=== PATIENT | male | born 1950 | race Caucasian/White ===

== ENCOUNTER 2020-06-19 17:45 | Inpatient (IN) | payer OTHER, MEDICARE, SELFPAY ==
[2020-06-19] VITALS (17 sets, daily range): BP systolic 126–170; BP diastolic 90–133; PULSE 63–150; RESP 14–24; TEMP 36.6–37.7; O2SAT 95–99; BMI 31.8; BMI 31.6; BMI 31.7
[2020-06-19] MEDS: dilTIAZem 25 MG/5 ML Vial 20 MG IV BOLUS (18:54)
[2020-06-19 18:56] LABS: Absolute Lymphocyte Count 1.49 X10^3/uL (0.83-4.51); Absolute Neutrophil Count 6.2 X10^3/uL (2.0-7.7); Basophil# 0.02 X10^3/uL; Basophil% 0.2 % (0-1); Eosinophil# 0.11 X10^3/uL; Eosinophils% 1.3 % (0-5); Hematocrit 42.8 % (40-54); Hemoglobin 14.3 g/dL (13.0-16.5); Lymphocyte # 1.49 X10^3/ul (4.0); Lymphocyte % 17.5 % (19-41); Mean Corp Hgb Conc 33.4 g/dL (32-36); Mean Corpuscular Hgb 31.4 pg (27.0-32.0); Mean Corpuscular Volume 94.1 fL (80-94); Mean Platelet Vol. 9.7 fl (6.2-12.0); Monocyte# 0.66 X10^3/uL; Monocyte% 7.8 % (0-10); NRBC Flagged by Analyzer 0 % (0-5); Platelet Count 248 K/mm3 (150-450); RBC Distribution Width CV 13.8 % (11.6-14.6); RBC Distribution Width SD 48.2 fl (35.1-43.9); Red Blood Count 4.55 M/mm3 (4.6-6.2); White Blood Count 8.5 K/mm3 (4.4-11.0)
--- NOTE | 2020-06-19 19:07 | RAD_ITS ---
STUDY: X-RAY CHEST REASON FOR EXAM: Male, 69 years old. SOB AND COUGH PRODUCING BLOODY SPUTUM. TECHNIQUE: Single AP portable view of the chest. COMPARISON: October 16, 2015 FINDINGS: There are monitoring devices. There is right lower lung granuloma. There are bilateral mid and lower lung interstitial increased opacities. There is pleural fibrotic scarring of the left costophrenic angle. There is mild cardiac enlargement. Normal mediastinum and isabel. Normal visualized pulmonary arteries. Normal visualized aortic arch and descending thoracic aorta. There are diffuse degenerative changes of the visualized thoracic spine. Normal visualized ribs, clavicles, and shoulders. There is no demonstrated abnormality of the visualized soft tissue structures of the upper abdomen. RAD/Chest 1 View (Portable) IMPRESSION: Interstitial pneumonia or edema. Electronically Signed: Benito Gonsales MD at 19:40 EDT , Service support ,
[2020-06-19 19:13] LABS: BNP,B-Type NATRIURETIC PEPTIDE 264.5 pg/mL (0-100)
[2020-06-19 19:14] LABS: ALB/GLOB Ratio 0.9 RATIO (0.9-2.4); AST(SGOT) 34 U/L (15-37); Alanine Aminotransfer ALT/SGPT 73 U/L (16-61); Albumin, Serum 3.1 g/dL (3.2-5.0); Alkaline Phosphatase 57 U/L (45-117); Anion Gap 5 (5-15); BUN 14 mg/dL (7-18); BUN/Creat Ratio 12.2 RATIO (10-20); Calcium,Total 8.4 mg/dL (8.5-10.1); Chloride 110 mmol/L (98-107); Creatinine, Serum 1.15 mg/dL (0.70-1.30); EST Glomerular Filtration Rate 67 mL/min (>60); Est Glom Filt Rate - Afr Amer 80 mL/min (>60); Estimated Creatinine Clearance 62.75 ml/min; Globulin 3.4 g/dL (2.2-4.2); Glucose 102 mg/dL (74-106); Potassium 3.6 mmol/L (3.5-5.1); Protein, Total 6.5 g/dL (6.4-8.2); Sodium Level 143 mmol/L (136-145)
--- NOTE | 2020-06-19 19:54 | EKG12_ITS ---
Test Reason : SOB Blood Pressure : / mmHG Vent. Rate : 164 BPM Atrial Rate : 468 BPM P-R Int : 000 ms QRS Dur : 092 ms QT Int : 282 ms P-R-T Axes : 000 042 089 degrees QTc Int : 465 ms Atrial fibrillation with rapid ventricular response with premature ventricular or aberrantly conducte d complexes Nonspecific ST and T wave abnormality Abnormal ECG Confirmed by HERB DOWNS, URIAH ([id number]), senior technical editor JESSICA OAKLEY ([id number]) on 06/20/2020 9:23:54 AM Referred By: Jeffrey Emanuel Confirmed By:URIAH ESTEVEZ MD
[2020-06-19 20:06] LABS: Probe Check PASS; Specimen Processing Control PASS
--- NOTE | 2020-06-19 20:15 | ED.VIS.GEN ---
History of Present Illness Chief Complaint: Cough Informant: Patient Narrative: Patient presents with shortness of breath for 1 week. He noticed some hemoptysis today he denies any palpitations, as I walked into the room he is in A. fib with a heart rate in the 160s but is denying any palpitations. He denies chest pain. Apparently he is a [employer] and has been able to do most of his duties over the past week. He denies any fever or chills Past Medical History - Allergies and Home Meds Allergies/Adverse Reactions: Allergies Sulfa (Sulfonamide Antibiotics) Allergy (Verified 06/19/20 17:46) Hives Primary Care Physician: Care Physician,No Primary [Primary Care Provider] - Past Medical History: None Smoking Status: Never smoker - Family History Paternal Family History: Reports: No pertinent history, - - No history of lung cancer Review of Systems General: Denies: Chills, Fever Eyes: Denies: Visual changes - bilaterally Cardiovascular: Denies: Chest pain, Palpitations Respiratory: Reports: Dyspnea, Cough, Sputum Gastrointestinal: Denies: Abdominal pain, Nausea Genitourinary: Denies: Dysuria Musculoskeletal: Denies: Myalgias Skin: Denies: Rash Neurological: Reports: Weakness. Denies: Headache Psych: Denies: Depression Hematologic: Denies: Easy bruising Allergy: Denies: Uticaria Physical Exam Vital Signs/Narrative: Vital Signs Temp Pulse Resp BP Pulse Ox 06/19/20 20:00 98 F 113 H 21 H 138/107 H 97 06/19/20 19:28 127 H 160/113 H 06/19/20 19:00 99.9 F H 150 H 20 H 139/127 H 97 06/19/20 18:25 99.4 F H 79 15 163/112 H 99 06/19/20 17:47 99.4 F H 79 15 163/112 H 99 General: - - He does not appear in significant distress. Head: Normocephalic ENT: Moist mucous membranes, No rhinorrhea Neck: Supple, Nontender Cardiovascular: Irregular, Tachycardia Respiratory: - - He is not tachypneic he is speaking in full sentences. Mostly clear bilateral breath sounds Abdomen: Soft Back: Nontender Extremities: Nontender. Negative for: No edema Skin: Normal color Neurological: Alert Psychological: Normal affect Diagnostic/Tx/Re-eval Chest X-Ray - ED: 1 View, Read by ED Physician, Read by Radiologist, - - Patient has bilateral fluffy infiltrates. - Rhythm Strip Rhythm Strip: A-fib Rate: 160 Ectopy: None - EKG Initial EKG Interpretation: - - A. fib with a rate of 164. Nonspecific ST and T wave abnormality. Normal QTc interval. Interpreted by emergency doctor - Medical Decision Making Has A. fib with RVR he is given Cardizem, he improved slightly therefore I will rebolus and started drip. He is also found to have bilateral pneumonia with a low-grade fever, there is no leukocytosis or any signs of sepsis, IV tachycardia secondary to A. fib. Antibiotics were given. COVID testing was negative. Because of the hemoptysis I will send him for CT angiogram. Otherwise patient will be admitted. ED Disposition - Plan for ED Patient: Disposition: Acute Care Hospital [facility] Diagnosis: Atrial fibrillation with RVR, Pneumonia Referrals: Care Physician,No Primary [Primary Care Provider] -
--- NOTE | 2020-06-19 20:33 | CT_ITS ---
We are attempting to reach an attending provider to discuss findings. An addendum with communication details will be sent when the communication is complete. STUDY: CTA CHEST REASON FOR EXAM: Male, 69 years old. SOB/COUGH/BLOODY SPUTUM. Hx of afib and pneumonia RADIATION DOSAGE (If Supplied By Facility): CTDIvol = ( 14.74 ) mGy, DLP = ( 568.64 ) mGycm TECHNIQUE: The examination was performed with the intravenous administration of Isovue 370 100ml. Post-processing of the angiographic images was performed, with multiplanar reformation and 3D reconstruction. Individualized dose optimization techniques were used for this CT. COMPARISON: Chest x-ray. FINDINGS: There are filling defects of the bilateral pulmonary arteries consistent with pulmonary embolism. Normal thoracic aorta and visualized great vessels. There is no demonstrated aortic dissection. There is cardiomegaly. Normal mediastinum. There are calcified bilateral hilar lymph nodes. Normal visualized trachea and bronchi. The lungs are well expanded. There are granulomatous calcifications. There are interstitial septal and groundglass increased opacities of the lungs. There are small bilateral pleural effusions. Normal chest wall structures. There are degenerative changes of thoracic spine. There is a solitary gallstone. CT/CTA Chest W/WO Contrast IMPRESSION: Abnormal CTA chest examination, with bilateral pulmonary embolism. Bilateral pneumonia or edema and pleural effusions. Electronically Signed: Benito Gonsales MD at 21:29 EDT , Service support ,
--- NOTE | 2020-06-19 20:57 | HP.PCM_ITS ---
Problem List (1) Atrial fibrillation with RVR Status: Acute (2) Pneumonia Status: Acute (3) History of esophageal dilatation Status: Chronic (4) Bilateral pleural effusion Status: Acute History of Present Illness Date of Admission: 06/19/20 Chief Complaint: SOB The patient is a 69 year old M te[place] with a significant history of GERD and esophageal dilatation who presents to the emergency department with 1 week history of shortness of breath. His shortness of breath got worse but after he did some deep breathing exercise his shortness of breath improved. He reports a productive cough of yellow sputum. However he noticed 2 episodes where his sputum looked orange and he thought that there might be blood in it. He denies any fever or chills. He reports poor appetite. He is fatigue but he think that it is not unusual. He denies any changes in smell or taste. He has been compliant with nose mask. Chest x-ray showed bilateral opacities. At the ED patient was found to be in A. fib with RVR. Past Medical History Past Medical History (Chronic Problems): Chronic Problems History of esophageal dilatation (Chronic) Allergies Sulfa (Sulfonamide Antibiotics) Allergy (Verified 06/19/20 17:46) Hives Home Medications: Ambulatory Orders Medication Instructions Recorded Omeprazole [Prilosec] 20 mg PO DAILY 09/19/15 Zinc Sulfate (50mg elemental) 220 mg PO DAILY 06/19/20 [Zinc Sulfate] Surgical History: tonsillectomy Smoking Status: Never smoker - *Family History Paternal History Items: Heart Disease, - Maternal History Items: Cancer - Breast Review of Systems Constitutional: Reports: Anorexia, Fatigue - Chronic. Denies: Chills, Fever, Weight Change HEENT: Denies: Head Aches, Sinus Congestion, Sinus Drainage Cardiovascular: Denies: Chest Pain, Palpitations Respiratory: Reports: Cough, Hemoptysis, Shortness of Breath, Sputum production Gastrointestinal: Denies: Abdominal Pain, Nausea, Vomiting Genitourinary: Denies: Dysuria Musculoskeletal: Denies: Joint Pain, Joint Tenderness Skin: Denies: Rash, Wounds Neurological: Denies: Numbness, Tingling, Focal weakness Psychiatric: Denies: Anxiety, Depression, Homicidal Ideations, Suicidal Ideations Hematologic/ Lymphatic: Denies: Easy Bruising, Easy Bleeding VTE Information - Inpt Only VTE Present on Admission: Yes - Bilateral PE. VTE Mechan Device Prophylaxis: None VTE Pharm Prophylaxis ordered?: No Patient Problems: Active and Suspected Problems Atrial fibrillation with RVR (Acute) Pneumonia (Acute) Bilateral pleural effusion (Acute) - Physical Exam Vitals/I&O's: Vital Signs Temp Pulse Resp BP Pulse Ox 98 F 113 H 21 H 138/107 H 97 06/19/20 20:00 06/19/20 20:00 06/19/20 20:00 06/19/20 20:00 06/19/20 20:00 Oxygen Delivery Method Room Air Weight: 103.6 kg Body Mass Index (BMI) 31.8 General: Alert, Oriented x3, Cooperative HEENT: Atraumatic, PERRLA, EOMI, Normocephalic Neck: Supple, No JVD, Negative Carotid Bruits Lungs: Clear to auscultation, Normal air movement Cardiovascular: Normal S1, Normal S2, No murmurs, Irregular Rate, Tachycardic Abdomen: Bowel Sounds Present, Soft, Non Tender Extremities: No edema, Capillary Refill Less than 3 Seconds Skin: No rashes, No breakdown Musculoskeletal: No Tenderness to Palpation of Joints or Extremities Neurological: Cranial nerves II-XII grossly intact Psych/Mental Status: Normal Affect, Appropriate Laboratory Results 06/19/20 18:40: WBC 8.5, RBC 4.55 L, Hgb 14.3, Hct 42.8, MCV 94.1 H, MCH 31.4, MCHC 33.4, RDW Std Deviation 48.2 H, RDW Coeff of Iesha 13.8, Plt Count 248, MPV 9.7, Immature Gran % (Auto) 0.200, Neut % (Auto) 73.0 H, Lymph % (Auto) 17.5 L, [place] % (Auto) 7.8, Eos % (Auto) 1.3, Baso % (Auto) 0.2, Absolute Neuts (auto) 6.2, Absolute Lymphs (auto) 1.49, Nucleated RBC % 0 06/19/20 18:40: Sodium 143, Potassium 3.6, Chloride 110 H, Carbon Dioxide 28.0, Anion Gap 5, BUN 14, Creatinine 1.15, Estim Creat Clear Calc 62.75, Est GFR (MDRD) Af Amer 80, Est GFR (MDRD) Non-Af 67, BUN/Creatinine Ratio 12.2, Glucose 102, Calcium 8.4 L, Total Bilirubin 1.20 H, AST 34, ALT 73 H, Alkaline Phosphatase 57, Troponin I < 0.015, Total Protein 6.5, Albumin 3.1 L, Globulin 3.4, Albumin/Globulin Ratio 0.9 06/19/20 18:40: B-Natriuretic Peptide 264.5 H 06/19/20 18:48: COVID-19 (LISSA) Negative Current Medications Azithromycin 500 mg/ Dextrose 255 mls @ 250 mls/hr IV X1 ONE Stop: 06/19/20 21:14 Diltiazem HCl 125 mg/ Dextrose 125 mls @ 5 mls/hr IV .Q25H CRYSTAL; Protocol Non-Formulary Medication (Omeprazole) 20 mg PO DAILY CRYSTAL Zinc Sulfate (Zinc Sulfate) 220 mg PO DAILY CRYSTAL Assessment/Plan All Active Problems Atrial fibrillation with RVR (Acute) Pneumonia (Acute) Bilateral pleural effusion (Acute) The patient is a 69 year old M [place] with a significant history of GERD and esophageal dilatation presents emergency department with shortness of breath; hemoptysis was found to have A. fib with RVR and CT scan findings of bilateral pleural effusion with right worse than left. Pneumonia Actual chest x-ray imaging was reviewed. It showed bilateral interstitial opacities. Cannot rule out interstitial pneumonitis. Blood culture ?2 is ordered Respiratory Gram stain and culture ordered Covid screen at the emergency department was negative. Antibiotics: Received ceftriaxone and azithromycin at emergency department and continued. PRN pro-air inhalation ordered. Legionella antigen screen and Strep antigen ordered We will consult infectious disease; and pulmonary medicine for probable covid. Procalcitonin level; ferritin and triglyceride ordered Tessalon Perles PRN.. Trend CMP. Noted to have elevated ALT. A. fib with RVR Placed on telemetry Received Cardizem bolus at emergency department. Discussed with cardiology Dr. Perkins who recommended additional Cardizem bolus; and to be started on Cardizem drip at 10 mg/h. Discussed with emergency department doctor and recommendations followed. Obtain echo Potassium is 3.6. 40 mEq of potassium chloride ordered. Check magnesium. Check TSH. Cardiology consult. Pulmonary embolism CTPA with bilateral pulmonary PE. Discussed with gps field data collector, Dr. [place]. Will start heparin drip without bolus Echo ordered DVT prophylaxis Not indicated since patient is on heparin drip for acute PE. Inpatient E&M: 98097 Init Hosp L3
[2020-06-19] MEDS: dilTIAZem 25 MG/5 ML Vial IV BOLUS (21:00)
[2020-06-19] MEDS: Ceftriaxone 1 GM/50 ML BAG IV (21:00)
--- NOTE | 2020-06-19 21:37 | ECHOCS_ITS ---
Reason For Study: AFib/Flutter Procedure This was a 2D Doppler, Color Flow transthoracic echocardiogram. Contrast injection was performed. Exam performed portable in patient room. Left Ventricle Normal LV size. The estimated ejection fraction is 45 %. Unable to assess diastolic dysfunction due to arrhythmia. There is mild global hypokinesis of the left ventricle. Right Ventricle Normal RV size. Normal systolic function. Atria Normal left atrium. Normal right atrium. Mitral Valve Normal mitral valve. Mild (1+) eccentric mitral valve insufficiency. Tricuspid Valve Normal tricuspid valve. Mild (1+) tricuspid valve insufficiency. Aortic Valve Trisinus/trileaflet aortic valve. Mild focal aortic valve calcification. Pulmonic Valve Normal pulmonic valve. Great Vessels Normal aortic root. The pulmonary artery is normal size. Normal inferior vena cava. Pericardium/Pleural No pericardial effusion. Medication Diluted definity 2ml given slow IV push to enhance endocardial definition. MMode/2D Measurements & Calculations LVIDd: 4.8 cm IVSd: 1.7 cm Ao root diam: 3.6 cm LVIDs: 3.9 cm LVPWd: 1.5 cm LA dimension: 4.0 cm RVDd: 4.4 cm FS: 19.6 % LAV(MOD-bp): 117.4 ml LA A4 area: 29.8 cm2 RA A4 area: 26.5 cm2 LAV(MOD-bp) Indexed: 52.8 ml/m2 LAV(MOD-sp2): 124.1 ml LAV(MOD-sp4): 100.3 ml Doppler Measurements & Calculations MV E max bobby: 130.5 cm/sec Ao V2 max: 112.8 cm/sec LV V1 max: 97.5 cm/sec Ao max P.1 mmHg LV V1 max P.8 mmHg MR max bobby: 484.0 cm/sec PA V2 max: 58.9 cm/sec TR max bobby: 284.9 cm/sec MR max P.7 mmHg TR max P.5 mmHg MR mean bobby: 378.6 cm/sec MR mean P.3 mmHg MR VTI: 143.3 cm Interpretation Summary Normal LV size. The estimated ejection fraction is 45 %. Unable to assess diastolic dysfunction due to arrhythmia. Mild (1+) tricuspid valve insufficiency. Ordering Physician: Jeffrey Emanuel Referring Physician: Jeffrey Emanuel Performed By: Mason Sherman RCS
--- NOTE | 2020-06-19 21:54 | NURSING ---
States PNA shots were in 2017 and 2018.
[2020-06-19 22:03] LABS: Ferritin 345 ng/mL (26-388); Triglycerides 98 mg/dL
[2020-06-19 22:12] LABS: Magnesium 2.2 mg/dL (1.6-2.6)
--- NOTE | 2020-06-19 22:17 | NURSING ---
Dr Perkins was called while patient was in the ED, so he was notified by Dr. Emanuel.
[2020-06-19 22:33] LABS: Procalcitonin 0.06 ng/mL (0.00-0.09)
[2020-06-19 22:34] LABS: International Normalized Ratio 1.2; Partial Thromboplast Time 26.7 Seconds (24.1-36.2); Prothrombin Time (Protime)PT. 14.5 SECONDS (11.7-14.9)
[2020-06-20] VITALS (25 sets, daily range): BP systolic 113–166; BP diastolic 73–98; PULSE 68–155; RESP 16–23; TEMP 36.6–37.2; O2SAT 91–97
--- NOTE | 2020-06-20 00:05 | NURSING ---
Med titration VS (BP of 152/110 and HR of 63) that are documented under Cardizem med titration should be timed at 21:37 rather than 21:47. Unable to edit documentation.
--- NOTE | 2020-06-20 00:38 | NURSING ---
Heparin gtt ordered to start at 1500 units/hour per weight based protocol. However, pt re-weighed when transferred to cohort unit. Weight was 102.6 kg. Pt started on Heparin gtt @ 1400 units/hr per weight-based protocol.
[2020-06-20 05:23] LABS: Absolute Lymphocyte Count 1.61 X10^3/uL (0.83-4.51); Absolute Neutrophil Count 5.4 X10^3/uL (2.0-7.7); Basophil# 0.03 X10^3/uL; Basophil% 0.4 % (0-1); Eosinophil# 0.12 X10^3/uL; Eosinophils% 1.5 % (0-5); Hematocrit 41.2 % (40-54); Hemoglobin 13.7 g/dL (13.0-16.5); Lymphocyte # 1.61 X10^3/ul (4.0); Lymphocyte % 20.3 % (19-41); Mean Corp Hgb Conc 33.3 g/dL (32-36); Mean Corpuscular Hgb 31.5 pg (27.0-32.0); Mean Corpuscular Volume 94.7 fL (80-94); Mean Platelet Vol. 9.1 fl (6.2-12.0); Monocyte# 0.73 X10^3/uL; Monocyte% 9.2 % (0-10); NRBC Flagged by Analyzer 0 % (0-5); Neutrophil # 5.43 X10^3/uL (2.7-7.7); Neutrophil % 68.3 % (47-70); Platelet Count 237 K/mm3 (150-450); RBC Distribution Width CV 13.9 % (11.6-14.6); RBC Distribution Width SD 48.1 fl (35.1-43.9); Red Blood Count 4.35 M/mm3 (4.6-6.2); White Blood Count 7.9 K/mm3 (4.4-11.0)
[2020-06-20 05:36] LABS: Partial Thromboplast Time 61.9 Seconds (24.1-36.2)
[2020-06-20 05:45] LABS: ALB/GLOB Ratio 0.9 RATIO (0.9-2.4); AST(SGOT) 23 U/L (15-37); Alanine Aminotransfer ALT/SGPT 63 U/L (16-61); Albumin, Serum 2.9 g/dL (3.2-5.0); Alkaline Phosphatase 51 U/L (45-117); Anion Gap 4 (5-15); BUN 11 mg/dL (7-18); BUN/Creat Ratio 11.4 RATIO (10-20); Calcium,Total 7.8 mg/dL (8.5-10.1); Chloride 108 mmol/L (98-107); Creatinine, Serum 0.97 mg/dL (0.70-1.30); EST Glomerular Filtration Rate 81 mL/min (>60); Est Glom Filt Rate - Afr Amer 98 mL/min (>60); Estimated Creatinine Clearance 74.39 ml/min; Globulin 3.4 g/dL (2.2-4.2); Glucose 112 mg/dL (74-106); Potassium 4.1 mmol/L (3.5-5.1); Protein, Total 6.3 g/dL (6.4-8.2); Sodium Level 140 mmol/L (136-145); Thyroid Stim Hormone (TSH) 1.52 uIU/mL (0.358-3.74)
--- NOTE | 2020-06-20 06:17 | PCM.CONS.PUL ---
Reason for Consult Date of Consultation: 06/20/20 Reason for Consultation: Shortness of breath History of Present Illness: The patient is a 69-year-old male, with a history as outlined below, who presented to the emergency department on June 19 with complaints of a one-week period of exertional shortness of breath. The patient is a lifelong non-smoker. 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 He denies any known pulmonary or cardiac issues. He does report a great deal of seasonal allergies and has had an intermittent nonproductive cough, which has been mild in nature. He denies any sick contact exposure. He denies fevers, chills or night sweats. He denies any loss of taste or smell. The patient denied a history of venous thromboembolic disease. He has no known personal or family history of any hypercoagulable conditions. He denies any recent immobility or surgeries. He has not traveled anywhere recently. On presentation to the emergency department, the patient was noted to be afebrile and hemodynamically stable. Shortly after his arrival, the patient was noted to be in atrial fibrillation with a rapid ventricular rate. Laboratory evaluation revealed a normal white blood cell count. Coagulation profile was within normal limits. Chemistry profile was unremarkable. BNP was mildly elevated at 264. Troponin was negative. Procalcitonin was within normal limits. TSH was within normal limits. Coronavirus PCR was negative. CTA chest revealed bilateral pulmonary emboli along with interstitial septal thickening and groundglass changes. Small bilateral pleural effusions were also noted. The patient was subsequently started on Cardizem and IV heparin drip. He was then admitted to the medical intensive care unit for further management. Past Medical History Past Medical History (Chronic Problems): Chronic Problems History of esophageal dilatation (Chronic) Allergies ragweed pollen Allergy (Verified 06/19/20 21:53) NEEDS FOLLOW-UP Sulfa (Sulfonamide Antibiotics) Allergy (Verified 06/19/20 17:46) Hives Home Medications: Ambulatory Orders Medication Instructions Recorded Omeprazole [Prilosec] 20 mg PO DAILY 09/19/15 Zinc Sulfate (50mg elemental) 220 mg PO DAILY 06/19/20 [Zinc Sulfate] Apixaban [Eliquis] 5 mg PO BID 30 Days #60 tab.ds.pk 06/20/20 Apixaban [Eliquis] 10 mg PO BID 6 Days #12 tab 06/20/20 Surgical History: tonsillectomy Smoking Status: Never smoker - *Family History Maternal History Items: Cancer - Breast Paternal History Items: Heart Disease, - Review of Systems Constitutional: Denies: Chills, Fever, Night Sweats, Fatigue Eyes: Denies: Blurred vision, Double vision HEENT: Denies: Head Aches, Sinus Congestion, Sinus Drainage Cardiovascular: Reports: Chest Tightness Respiratory: Reports: Cough, Shortness of Breath. Denies: Sputum production Gastrointestinal: Denies: Abdominal Pain, Nausea, Vomiting Genitourinary: Denies: Dysuria Musculoskeletal: Denies: Joint Pain, Joint Tenderness Skin: Denies: Rash, Wounds Neurological: Denies: Numbness, Tingling, Focal weakness Psychiatric: Denies: Anxiety, Depression, Homicidal Ideations, Suicidal Ideations Hematologic/ Lymphatic: Denies: Easy Bruising, Easy Bleeding, Hx of blood clot Patient Problems: Active and Suspected Problems Atrial fibrillation with RVR (Acute) Pneumonia (Acute) Bilateral pleural effusion (Acute) Objective: The patient's most recent lab work, culture data and imaging studies have all been personally reviewed. Respiratory viral panel was negative. Blood and sputum cultures are pending. - Physical Exam Vitals/I&O's: Vital Signs Temp Pulse Resp BP Pulse Ox 98.1 F 77 19 H 129/73 H 96 06/19/20 23:18 06/20/20 05:00 06/20/20 05:00 06/20/20 05:00 06/20/20 05:00 Oxygen Delivery Method Room Air Weight: 226 lb 3.108 oz Body Mass Index (BMI) 31.6 Intake and Output for Last 24 Hours 06/18/20 06/19/20 06/20/20 23:59 23:59 23:59 Intake Total 871.75 / 879.25 201.32 / 201.32 Balance 871.75 / 879.25 201.32 / 201.32 General: Alert, Cooperative, No apparent distress, - - Sitting in bedside recliner. HEENT: Atraumatic, PERRLA, Normocephalic Oral: No Gingival or Mucosal Lesions/ Ulcerations Neck: Supple, No Nodes, Trachea Midline Lungs: Normal air movement, No rhonchi, No wheeze, No rales Cardiovascular: Normal S1, Normal S2, Irregular Rate, Tachycardic Abdomen: Bowel Sounds Present, Soft, Non Tender Extremities: No clubbing, No cyanosis Skin: No rashes Musculoskeletal: No Muscle Wasting Lymphatic: No Cervical, Supraclavicular, or Inguinal Adenopathy Neurological: Cranial nerves II-XII grossly intact, Neuro grossly intact Psych/Mental Status: Alert and oriented to time, place, person, mood and affect Labs (Last 48 Hours) 06/19/20 06/19/20 06/19/20 18:40 18:40 18:40 WBC 8.5 RBC 4.55 L Hgb 14.3 Hct 42.8 MCV 94.1 H MCH 31.4 MCHC 33.4 RDW Std Deviation 48.2 H RDW Coeff of Iesha 13.8 Plt Count 248 MPV 9.7 Immature Gran % (Auto) 0.200 Neut % (Auto) 73.0 H Lymph % (Auto) 17.5 L Bureau % (Auto) 7.8 Eos % (Auto) 1.3 Baso % (Auto) 0.2 Absolute Neuts (auto) 6.2 Absolute Lymphs (auto) 1.49 Nucleated RBC % 0 PT INR APTT Sodium 143 Potassium 3.6 Chloride 110 H Carbon Dioxide 28.0 Anion Gap 5 BUN 14 Creatinine 1.15 Estim Creat Clear Calc 62.75 Est GFR (MDRD) Af Amer 80 Est GFR (MDRD) Non-Af 67 BUN/Creatinine Ratio 12.2 Glucose 102 Calcium 8.4 L Magnesium Ferritin Total Bilirubin 1.20 H AST 34 ALT 73 H Alkaline Phosphatase 57 Troponin I < 0.015 B-Natriuretic Peptide 264.5 H Total Protein 6.5 Albumin 3.1 L Globulin 3.4 Albumin/Globulin Ratio 0.9 Triglycerides Procalcitonin TSH COVID-19 ([facility]) 06/19/20 06/19/20 06/19/20 18:40 18:40 18:40 WBC RBC Hgb Hct MCV MCH MCHC RDW Std Deviation RDW Coeff of Iesha Plt Count MPV Immature Gran % (Auto) Neut % (Auto) Lymph % (Auto) Bureau % (Auto) Eos % (Auto) Baso % (Auto) Absolute Neuts (auto) Absolute Lymphs (auto) Nucleated RBC % PT INR APTT Sodium Potassium Chloride Carbon Dioxide Anion Gap BUN Creatinine Estim Creat Clear Calc Est GFR (MDRD) Af Amer Est GFR (MDRD) Non-Af BUN/Creatinine Ratio Glucose Calcium Magnesium 2.2 Ferritin 345 Total Bilirubin AST ALT Alkaline Phosphatase Troponin I B-Natriuretic Peptide Cancelled Total Protein Albumin Globulin Albumin/Globulin Ratio Triglycerides 98 Procalcitonin TSH COVID-19 ([facility]) 06/19/20 06/19/20 06/19/20 18:40 18:48 22:00 WBC RBC Hgb Hct MCV MCH MCHC RDW Std Deviation RDW Coeff of Iesha Plt Count MPV Immature Gran % (Auto) Neut % (Auto) Lymph % (Auto) Bureau % (Auto) Eos % (Auto) Baso % (Auto) Absolute Neuts (auto) Absolute Lymphs (auto) Nucleated RBC % PT 14.5 INR 1.2 APTT 26.7 Sodium Potassium Chloride Carbon Dioxide Anion Gap BUN Creatinine Estim Creat Clear Calc Est GFR (MDRD) Af Amer Est GFR (MDRD) Non-Af BUN/Creatinine Ratio Glucose Calcium Magnesium Ferritin Total Bilirubin AST ALT Alkaline Phosphatase Troponin I B-Natriuretic Peptide Total Protein Albumin Globulin Albumin/Globulin Ratio Triglycerides Procalcitonin 0.06 TSH COVID-19 ([facility]) Negative 06/20/20 06/20/20 06/20/20 05:10 05:10 05:10 WBC 7.9 RBC 4.35 L Hgb 13.7 Hct 41.2 MCV 94.7 H MCH 31.5 MCHC 33.3 RDW Std Deviation 48.1 H RDW Coeff of Iesha 13.9 Plt Count 237 MPV 9.1 Immature Gran % (Auto) 0.300 Neut % (Auto) 68.3 Lymph % (Auto) 20.3 Bureau % (Auto) 9.2 Eos % (Auto) 1.5 Baso % (Auto) 0.4 Absolute Neuts (auto) 5.4 Absolute Lymphs (auto) 1.61 Nucleated RBC % 0 PT INR APTT 61.9 H Sodium 140 Potassium 4.1 Chloride 108 H Carbon Dioxide 28.0 Anion Gap 4 L BUN 11 Creatinine 0.97 Estim Creat Clear Calc 74.39 Est GFR (MDRD) Af Amer 98 Est GFR (MDRD) Non-Af 81 BUN/Creatinine Ratio 11.4 Glucose 112 H Calcium 7.8 L Magnesium Ferritin Total Bilirubin 1.30 H AST 23 ALT 63 H Alkaline Phosphatase 51 Troponin I B-Natriuretic Peptide Total Protein 6.3 L Albumin 2.9 L Globulin 3.4 Albumin/Globulin Ratio 0.9 Triglycerides Procalcitonin TSH 1.52 COVID-19 ([facility]) Microbiology 06/19/20 23:00 Mucosa - Nasopharyngeal Respiratory Panel (PCR) - Final Clinical Impression(s) from Imaging Studies Chest X-Ray 06/19/20 19:07 IMPRESSION: Interstitial pneumonia or edema. Electronically Signed: Benito Gonsales MD at 19:40 EDT , Service support , Chest CTA 06/19/20 20:33 IMPRESSION: Abnormal CTA chest examination, with bilateral pulmonary embolism. Bilateral pneumonia or edema and pleural effusions. Electronically Signed: Benito Gonsales MD at 21:29 EDT , Service support , ADDENDUM: 06/19/20 2138 IMPRESSION: Abnormal CTA chest examination, with bilateral pulmonary embolism. Bilateral pneumonia or edema and pleural effusions. N.B. : The above information has been verbally conveyed by Benito Gonsales MD to Amisha Francis RN, on 06/19/2020 21:31:10 (ET). Electronically Signed: Benito Gonsales MD at 21:29 EDT , Service support , Current Medications Acetaminophen (Tylenol) 650 mg PO Q6H PRN PRN PRN Reason: Pain Score 1-10/Temp > 100.7 F Albuterol Sulfate (Ventolin Aerosols) 2.5 mg INHALATION Q4H PRN PRN PRN Reason: SOB/WEEZING Benzonatate (Tessalon Perle) 100 mg PO TID PRN PRN PRN Reason: COUGH Heparin Sodium (Porcine) (Heparin Na) 0 unit IV UD PRN; Protocol PRN Reason: DOSAGE ADJUSTMENT NOMOGRAM Diltiazem HCl 125 mg/ Dextrose 125 mls @ 10 mls/hr IV .[id number] [facility]; Protocol Last Admin: 06/19/20 22:43 Dose: Not Given Documented by: Azithromycin 500 mg/ Dextrose 255 mls @ 250 mls/hr IV Q24H [facility] Ceftriaxone Sodium (Rocephin) 1 gm in 50 mls @ 100 mls/hr IV Q24H [facility] Diltiazem HCl 125 mg/ Dextrose 125 mls @ 10 mls/hr IV .[id number] [facility]; Protocol Last Admin: 06/20/20 05:50 Dose: 15 mg/hr, 15 mls/hr Documented by: Sodium Chloride () 250 mls @ 15 mls/hr IV .[id number] PRN PRN Reason: Saline Flush Sodium Chloride () 250 mls @ 15 mls/hr IV .[id number] PRN PRN Reason: Additional IVPB Infusion Heparin Sodium/Sodium Chloride () 25,000 unit in 250 mls @ 15 mls/hr IV .[id number] [facility]; Protocol Last Titration: 06/20/20 05:38 Dose: 1,400 units/hr, 14 mls/hr Documented by: Nutritional Formula (Lactose Free) (Ensure Enlive) 120 ml PO 4X/DAY [facility] Ondansetron HCl (Zofran) 4 mg IV Q8H PRN PRN PRN Reason: NAUSEA/VOMITING Pantoprazole Sodium (Protonix) 20 mg PO DAILY [facility] Sodium Chloride () 10 - 40 ml IV UD PRN PRN Reason: SALINE FLUSH Zinc Sulfate (Zinc Sulfate) 220 mg PO DAILY [facility] Assessment/Plan All Active Problems Atrial fibrillation with RVR (Acute) Pneumonia (Acute) Bilateral pleural effusion (Acute) RECOMMENDATIONS: 1. Continue systemic anticoagulation with continuous heparin infusion for now. 2. Await echocardiogram results. 3. Continue Cardizem, while awaiting cardiology consultation. 4. Okay to discontinue antibiotics from my perspective. 5. Discontinue isolation precautions. 6. The patient can eventually be transitioned to Eliquis or Xarelto prior to discharge. IMPRESSIONS: 1. Shortness of breath Appears to be secondary to bilateral pulmonary emboli with subsequent new onset atrial fibrillation with rapid ventricular rate. I have a low clinical index of suspicion for underlying pulmonary infectious process. Antibiotics can be discontinued from my perspective. Coronavirus PCR was negative. The patient does not endorse any symptoms overtly concerning for COVID pneumonia. Accordingly, isolation precautions can be discontinued. Agree with continuing systemic anticoagulation for now with heparin. Cardiology consultation is currently pending. For now, Cardizem will be continued. An echocardiogram has also been ordered and is currently pending. Eventually, the patient can be transitioned to either Eliquis or Xarelto, with plans to continue systemic anticoagulation without interruption upon discharge, given the unprovoked PEs noted on CT. 2. New onset atrial fibrillation with rapid ventricular rate Potentially precipitated by bilateral pulmonary emboli noted on CTA chest. Continue current medical management per cardiology recommendations. Echocardiogram is currently pending. 3. History of GERD Continue home Prilosec. This note was generated with [employer] dictation software. It may contain incorrect words, spelling, and punctuation that were not noted in checking the note before signing. Inpatient E&M: 34339 Init Hosp L3
--- NOTE | 2020-06-20 07:14 | PCM.PN.HOSP ---
Patient Problems: Active and Suspected Problems Atrial fibrillation with RVR (Acute) Pneumonia (Acute) Bilateral pleural effusion (Acute) Reason for Visit: Follow-up on A. lawrence with RVR/Bilateral PE Subjective: Patient seen and examined. He denied any palpitations or chest pain or dizziness. His heart rate remained uncontrolled at time of exam. Was on Cardizem drip. No orthopnea or PND. Objective: Physical exam: General: Alert, Oriented x3, Cooperative HEENT: Atraumatic, PERRLA, EOMI, Normocephalic Neck: Supple, No JVD, Negative Carotid Bruits Lungs: Clear to auscultation, Normal air movement Cardiovascular: Normal S1, Normal S2, No murmurs, Irregular Rate, Tachycardic Abdomen: Bowel Sounds Present, Soft, Non Tender Extremities: No edema, Capillary Refill Less than 3 Seconds Skin: No rashes, No breakdown Musculoskeletal: No Tenderness to Palpation of Joints or Extremities Neurological: Cranial nerves II-XII grossly intact Psych/Mental Status: Normal Affect, Appropriate Vitals/I&O's: Vital Signs Temp Pulse Resp BP Pulse Ox 97.9 F 88 19 H 136/79 H 96 06/20/20 06:00 06/20/20 07:00 06/20/20 07:00 06/20/20 07:00 06/20/20 07:00 Oxygen Delivery Method Room Air Weight: 102.6 kg Body Mass Index (BMI) 31.6 Intake and Output for Last 24 Hours 06/18/20 06/19/20 06/20/20 23:59 23:59 23:59 Intake Total 871.75 / 879.25 218.82 / 218.82 Balance 871.75 / 879.25 218.82 / 218.82 Microbiology Past 72 Hours 06/19/20 23:00 Mucosa - Nasopharyngeal Respiratory Panel (PCR) - Final Laboratory Results 06/19/20 18:40: WBC 8.5, RBC 4.55 L, Hgb 14.3, Hct 42.8, MCV 94.1 H, MCH 31.4, MCHC 33.4, RDW Std Deviation 48.2 H, RDW Coeff of Iesha 13.8, Plt Count 248, MPV 9.7, Immature Gran % (Auto) 0.200, Neut % (Auto) 73.0 H, Lymph % (Auto) 17.5 L, [place] % (Auto) 7.8, Eos % (Auto) 1.3, Baso % (Auto) 0.2, Absolute Neuts (auto) 6.2, Absolute Lymphs (auto) 1.49, Nucleated RBC % 0 06/19/20 18:40: Sodium 143, Potassium 3.6, Chloride 110 H, Carbon Dioxide 28.0, Anion Gap 5, BUN 14, Creatinine 1.15, Estim Creat Clear Calc 62.75, Est GFR (MDRD) Af Amer 80, Est GFR (MDRD) Non-Af 67, BUN/Creatinine Ratio 12.2, Glucose 102, Calcium 8.4 L, Total Bilirubin 1.20 H, AST 34, ALT 73 H, Alkaline Phosphatase 57, Troponin I < 0.015, Total Protein 6.5, Albumin 3.1 L, Globulin 3.4, Albumin/Globulin Ratio 0.9 06/19/20 18:40: B-Natriuretic Peptide 264.5 H 06/19/20 18:40: Ferritin 345, Triglycerides 98 06/19/20 18:40: Magnesium 2.2 06/19/20 18:40: B-Natriuretic Peptide Cancelled 06/19/20 18:40: PT 14.5, INR 1.2, APTT 26.7 06/19/20 18:48: COVID-19 ([facility]) Negative 06/19/20 22:00: Procalcitonin 0.06 06/20/20 05:10: WBC 7.9, RBC 4.35 L, Hgb 13.7, Hct 41.2, MCV 94.7 H, MCH 31.5, MCHC 33.3, RDW Std Deviation 48.1 H, RDW Coeff of Iesha 13.9, Plt Count 237, MPV 9.1, Immature Gran % (Auto) 0.300, Neut % (Auto) 68.3, Lymph % (Auto) 20.3, [place] % (Auto) 9.2, Eos % (Auto) 1.5, Baso % (Auto) 0.4, Absolute Neuts (auto) 5.4, Absolute Lymphs (auto) 1.61, Nucleated RBC % 0 06/20/20 05:10: Sodium 140, Potassium 4.1, Chloride 108 H, Carbon Dioxide 28.0, Anion Gap 4 L, BUN 11, Creatinine 0.97, Estim Creat Clear Calc 74.39, Est GFR (MDRD) Af Amer 98, Est GFR (MDRD) Non-Af 81, BUN/Creatinine Ratio 11.4, Glucose 112 H, Calcium 7.8 L, Total Bilirubin 1.30 H, AST 23, ALT 63 H, Alkaline Phosphatase 51, Total Protein 6.3 L, Albumin 2.9 L, Globulin 3.4, Albumin/Globulin Ratio 0.9, TSH 1.52 06/20/20 05:10: APTT 61.9 H Current Medications Acetaminophen (Tylenol) 650 mg PO Q6H PRN PRN PRN Reason: Pain Score 1-10/Temp > 100.7 F Albuterol Sulfate (Ventolin Aerosols) 2.5 mg INHALATION Q4H PRN PRN PRN Reason: SOB/WEEZING Benzonatate (Tessalon Perle) 100 mg PO TID PRN PRN PRN Reason: COUGH Heparin Sodium (Porcine) (Heparin Na) 0 unit IV UD PRN; Protocol PRN Reason: DOSAGE ADJUSTMENT NOMOGRAM Azithromycin 500 mg/ Dextrose 255 mls @ 250 mls/hr IV Q24H [facility] Ceftriaxone Sodium (Rocephin) 1 gm in 50 mls @ 100 mls/hr IV Q24H [facility] Diltiazem HCl 125 mg/ Dextrose 125 mls @ 10 mls/hr IV .[id number] [facility]; Protocol Last Titration: 06/20/20 07:00 Dose: 15 mg/hr, 15 mls/hr Documented by: Sodium Chloride () 250 mls @ 15 mls/hr IV .[id number] PRN PRN Reason: Saline Flush Sodium Chloride () 250 mls @ 15 mls/hr IV .[id number] PRN PRN Reason: Additional IVPB Infusion Heparin Sodium/Sodium Chloride () 25,000 unit in 250 mls @ 15 mls/hr IV .[id number] [facility]; Protocol Last Titration: 06/20/20 05:38 Dose: 1,400 units/hr, 14 mls/hr Documented by: Nutritional Formula (Lactose Free) (Ensure Enlive) 120 ml PO 4X/DAY [facility] Ondansetron HCl (Zofran) 4 mg IV Q8H PRN PRN PRN Reason: NAUSEA/VOMITING Pantoprazole Sodium (Protonix) 20 mg PO DAILY [facility] Sodium Chloride () 10 - 40 ml IV UD PRN PRN Reason: SALINE FLUSH Zinc Sulfate (Zinc Sulfate) 220 mg PO DAILY [facility] Vital Signs/Narrative: Vital Signs Temp Pulse Resp BP Pulse Ox 06/20/20 07:00 88 19 H 136/79 H 96 06/20/20 06:00 97.9 F 80 20 H 132/77 H 95 06/20/20 05:00 77 19 H 129/73 H 96 06/20/20 04:00 70 23 H 130/94 H 91 Medical Necessity - Tobacco Use Smoking Status: Never smoker Assessment/Plan All Active Problems Atrial fibrillation with RVR (Acute) Pneumonia (Acute) Bilateral pleural effusion (Acute) 1. A. fib with RVR, new onset, started on Cardizem bolus with drip overnight Transitioned to oral metoprolol, continue to monitor DC heparin drip, start on Eliquis 2. GERD, on PPI 3. DVT PPx- on Eliquis Inpatient E&M: 50706 Subs Hosp L2
--- NOTE | 2020-06-20 09:00 | VDLE_ITS ---
Reason For Study: Pulmonary embolism RIGHT LEFT GSV is normal. GSV is normal. CFV is compressible, spontaneous, competent CFV is compressible, spontaneous, competent, and demonstrates pulsatile venous flow. and demonstrates pulsatile venous flow. FV is compressible, spontaneous, competent FV is compressible, spontaneous, competent and demonstrates pulsatile venous flow. and demonstrates pulsatile venous flow. POP V is compressible, spontaneous, competent POP V is compressible, spontaneous, competent and demonstrates pulsatile venous flow. and demonstrates pulsatile venous flow. T/P Trunk is compressible. T/P Trunk is compressible. PTV is compressible. PTV is compressible. RT PerV is compressible. LT PerV is compressible. Acute deep vein thrombosis is noted in the right soleus vein. Procedure Exam performed portable in ICU/CCU. A preliminary report was called and/or faxed to [facility]. Interpretation Summary Acute deep venous thrombosis right soleus vein Pulsatile venous flow is noted bilaterally consistent with proximal venous hypertension or obstruction. Clinical correlation is appropriate Patent and compressible bilateral great saphenous veins Ordering Physician: Radha Noble Performed By: Karyn Holbrook RVT
[2020-06-20] MEDS: Metoprolol Tartrate 50 MG Tablet PO ×2 (09:01→22:14)
[2020-06-20] MEDS: TITRATION PARAMETER CHANGE 1 EACH IV (09:52)
[2020-06-20] MEDS: Pantoprazole Sodium 20 MG Tablet PO (10:00)
[2020-06-20] MEDS: APIXABAN 5 MG TABLET 10 MG PO ×2 (11:47→22:14)
--- NOTE | 2020-06-20 13:24 | CASEMGMT ---
ASHU FARR assessment: Face to Face with patient for initial transition planning/care coordination assessment. RN CHIKA introduced self and role at [facility], pt voices understanding and consents to assessment at this time. Pt is sitting up in chair in no distress at this time. Pt is A/Ox4 at this time and answers all questions appropriately at this time. Care providers, pharmacy, and demographics verified. Presentation: SOB, cough Admitting dx: Severe acute resp syndrome, Afib RVR PCP: Pt does not have a PCP but list provided at this time. Specialists: Pt states no current specialists. Preferred Pharmacy: [facility] Insurance: [employer] A/B, AARP Prescription Benefit: MCR A/B, AARP Living Will/HPOA: Pt states has LW/HPOA and is aware that they are not on file at [facility] at this time. Pt states , Jayne Alejandro, is HPOA. LNOK: Jayne Alejandro, Living Arrangements: Pt states lives with in 1 story home and states no concerns at home at this time. Pt states is independent with ADL's. Transportation: Pt states drives self and states no transportation concerns at this time. DME/HHC: Pt states has not DME or need for any further DME at this time. Pt states no hx of HHC or SNF in the past. Pt to be sent home on [facility] and this RN CHIKA to call and check coverage/co-pay once script clarified to pharmacy by Dr. Noble. Pt states no concerns with going home at time of discharge. 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 Pt states does not smoke cigarettes but does drink ETOH occasionally. Pt states no further concerns/needs at this time. CM to follow for any further discharge planning/needs. Advised pt to ask for CM if any further questions/concerns/needs arise, voices understanding. Pt Goal: Home Plan[place] [facility]
--- NOTE | 2020-06-20 13:45 | CASEMGMT ---
ASHU CM Note: ortega checked with [facility] pharmacy in [place] for Eliquis. Cost is $194.75; free trial savings card given to pharmacy coordinator so today's cost should be $0. Dr. Noble updated on cost and that savings card was given. Physician also updated if Xarelto ortega would need checked, physician can call [facility] pharmacy and give prescription details and they will check cost for appropriate dosing. Xarelto savings card is also available. Charge nurse has been updated and anticipates patient will be here until tomorrow. Cyrus AUGUSTINEN RN ACM
[2020-06-21] VITALS (15 sets, daily range): BP systolic 131–152; BP diastolic 81–95; PULSE 93–132; RESP 16–20; TEMP 36.7–36.9; O2SAT 93–97
[2020-06-21 06:30] LABS: Absolute Lymphocyte Count 1.17 X10^3/uL (0.83-4.51); Absolute Neutrophil Count 5.8 X10^3/uL (2.0-7.7); Basophil# 0.03 X10^3/uL; Basophil% 0.4 % (0-1); Eosinophil# 0.14 X10^3/uL; Eosinophils% 1.8 % (0-5); Hematocrit 43.4 % (40-54); Hemoglobin 14.3 g/dL (13.0-16.5); Lymphocyte # 1.17 X10^3/ul (4.0); Lymphocyte % 15.3 % (19-41); Mean Corp Hgb Conc 32.9 g/dL (32-36); Mean Corpuscular Hgb 31.3 pg (27.0-32.0); Mean Platelet Vol. 9.7 fl (6.2-12.0); Monocyte# 0.49 X10^3/uL; Monocyte% 6.4 % (0-10); NRBC Flagged by Analyzer 0 % (0-5); Neutrophil % 75.8 % (47-70); Platelet Count 256 K/mm3 (150-450); RBC Distribution Width CV 13.9 % (11.6-14.6); RBC Distribution Width SD 47.8 fl (35.1-43.9); Red Blood Count 4.57 M/mm3 (4.6-6.2); White Blood Count 7.7 K/mm3 (4.4-11.0)
--- NOTE | 2020-06-21 06:49 | PCM.PN.PUL ---
Patient Problems: Active and Suspected Problems Atrial fibrillation with RVR (Acute) Pneumonia (Acute) Bilateral pleural effusion (Acute) Subjective: The patient was seen and examined at the bedside this morning. Events from the last 24 hours have been reviewed. The patient is currently afebrile, hemodynamically stable and maintaining appropriate oxygen saturations on room air. The patient is currently asymptomatic from a respiratory perspective. However, he does remain in atrial fibrillation with a rapid ventricular rate. Objective: The patient's most recent lab work, culture data and imaging studies have all been personally reviewed. Lower extremity Doppler study revealed an acute DVT in the right soleus vein. Surface echocardiogram revealed normal LV size with an ejection fraction of 45%. There was mild global hypokinesis of the LV. The RV was noted to be normal in size and function. Infectious work-up has been unrevealing to date. - Physical Exam Vitals/I&O's: Vital Signs Temp Pulse Resp BP Pulse Ox 98.1 F 132 H 20 H 131/87 H 95 06/21/20 04:19 06/21/20 06:09 06/21/20 04:19 06/21/20 04:19 06/21/20 04:19 Oxygen Delivery Method Room Air Weight: 226 lb 3.108 oz Body Mass Index (BMI) 31.6 Intake and Output for Last 24 Hours 06/19/20 06/20/20 06/21/20 23:59 23:59 23:59 Intake Total 871.75 / 879.25 1276.71 / 1276.71 0 / 0 Output Total 0 / 0 Balance 871.75 / 879.25 1276.71 / 1276.71 0 / 0 General: Alert, Cooperative, No apparent distress HEENT: Atraumatic, PERRLA, Normocephalic Oral: Moist Mucosa, No Gingival or Mucosal Lesions/ Ulcerations Neck: Supple, No Nodes, Trachea Midline Lungs: No rhonchi, No wheeze, No rales Cardiovascular: Normal S1, Normal S2, Irregular Rate, Tachycardic Abdomen: Bowel Sounds Present, Soft, Non Tender Extremities: No clubbing, No cyanosis, No edema Skin: No breakdown Musculoskeletal: No Tenderness to Palpation of Joints or Extremities, No Muscle Wasting Lymphatic: No Cervical, Supraclavicular, or Inguinal Adenopathy Neurological: Cranial nerves II-XII grossly intact, Neuro grossly intact Psych/Mental Status: Alert and oriented to time, place, person, mood and affect Labs (Last 48 Hours) 06/19/20 06/19/20 06/19/20 18:40 18:40 18:40 WBC 8.5 RBC 4.55 L Hgb 14.3 Hct 42.8 MCV 94.1 H MCH 31.4 MCHC 33.4 RDW Std Deviation 48.2 H RDW Coeff of Iesha 13.8 Plt Count 248 MPV 9.7 Immature Gran % (Auto) 0.200 Neut % (Auto) 73.0 H Lymph % (Auto) 17.5 L [place] % (Auto) 7.8 Eos % (Auto) 1.3 Baso % (Auto) 0.2 Absolute Neuts (auto) 6.2 Absolute Lymphs (auto) 1.49 Nucleated RBC % 0 PT INR APTT Sodium 143 Potassium 3.6 Chloride 110 H Carbon Dioxide 28.0 Anion Gap 5 BUN 14 Creatinine 1.15 Estim Creat Clear Calc 62.75 Est GFR (MDRD) Af Amer 80 Est GFR (MDRD) Non-Af 67 BUN/Creatinine Ratio 12.2 Glucose 102 Calcium 8.4 L Magnesium Ferritin Total Bilirubin 1.20 H AST 34 ALT 73 H Alkaline Phosphatase 57 Troponin I < 0.015 B-Natriuretic Peptide 264.5 H Total Protein 6.5 Albumin 3.1 L Globulin 3.4 Albumin/Globulin Ratio 0.9 Triglycerides Procalcitonin TSH COVID-19 ([facility]SA) 06/19/20 06/19/20 06/19/20 18:40 18:40 18:40 WBC RBC Hgb Hct MCV MCH MCHC RDW Std Deviation RDW Coeff of Iesha Plt Count MPV Immature Gran % (Auto) Neut % (Auto) Lymph % (Auto) [place] % (Auto) Eos % (Auto) Baso % (Auto) Absolute Neuts (auto) Absolute Lymphs (auto) Nucleated RBC % PT INR APTT Sodium Potassium Chloride Carbon Dioxide Anion Gap BUN Creatinine Estim Creat Clear Calc Est GFR (MDRD) Af Amer Est GFR (MDRD) Non-Af BUN/Creatinine Ratio Glucose Calcium Magnesium 2.2 Ferritin 345 Total Bilirubin AST ALT Alkaline Phosphatase Troponin I B-Natriuretic Peptide Cancelled Total Protein Albumin Globulin Albumin/Globulin Ratio Triglycerides 98 Procalcitonin TSH COVID-19 (LISSA) 06/19/20 06/19/2020 18:40 18:48 22:00 WBC RBC Hgb Hct MCV MCH MCHC RDW Std Deviation RDW Coeff of Iesha Plt Count MPV Immature Gran % (Auto) Neut % (Auto) Lymph % (Auto) [place] % (Auto) Eos % (Auto) Baso % (Auto) Absolute Neuts (auto) Absolute Lymphs (auto) Nucleated RBC % PT 14.5 INR 1.2 APTT 26.7 Sodium Potassium Chloride Carbon Dioxide Anion Gap BUN Creatinine Estim Creat Clear Calc Est GFR (MDRD) Af Amer Est GFR (MDRD) Non-Af BUN/Creatinine Ratio Glucose Calcium Magnesium Ferritin Total Bilirubin AST ALT Alkaline Phosphatase Troponin I B-Natriuretic Peptide Total Protein Albumin Globulin Albumin/Globulin Ratio Triglycerides Procalcitonin 0.06 TSH COVID-19 (LISSA) Negative 06/20/20 06/20/20 06/20/20 05:10 05:10 05:10 WBC 7.9 RBC 4.35 L Hgb 13.7 Hct 41.2 MCV 94.7 H MCH 31.5 MCHC 33.3 RDW Std Deviation 48.1 H RDW Coeff of Iesha 13.9 Plt Count 237 MPV 9.1 Immature Gran % (Auto) 0.300 Neut % (Auto) 68.3 Lymph % (Auto) 20.3 [place] % (Auto) 9.2 Eos % (Auto) 1.5 Baso % (Auto) 0.4 Absolute Neuts (auto) 5.4 Absolute Lymphs (auto) 1.61 Nucleated RBC % 0 PT INR APTT 61.9 H Sodium 140 Potassium 4.1 Chloride 108 H Carbon Dioxide 28.0 Anion Gap 4 L BUN 11 Creatinine 0.97 Estim Creat Clear Calc 74.39 Est GFR (MDRD) Af Amer 98 Est GFR (MDRD) Non-Af 81 BUN/Creatinine Ratio 11.4 Glucose 112 H Calcium 7.8 L Magnesium Ferritin Total Bilirubin 1.30 H AST 23 ALT 63 H Alkaline Phosphatase 51 Troponin I B-Natriuretic Peptide Total Protein 6.3 L Albumin 2.9 L Globulin 3.4 Albumin/Globulin Ratio 0.9 Triglycerides Procalcitonin TSH 1.52 COVID-19 (LISSA) 06/21/20 06/21/20 06:14 06:14 WBC 7.7 RBC 4.57 L Hgb 14.3 Hct 43.4 MCV 95.0 H MCH 31.3 MCHC 32.9 RDW Std Deviation 47.8 H RDW Coeff of Iesha 13.9 Plt Count 256 MPV 9.7 Immature Gran % (Auto) 0.300 Neut % (Auto) 75.8 H Lymph % (Auto) 15.3 L [place] % (Auto) 6.4 Eos % (Auto) 1.8 Baso % (Auto) 0.4 Absolute Neuts (auto) 5.8 Absolute Lymphs (auto) 1.17 Nucleated RBC % 0 PT INR APTT Sodium Pending Potassium Pending Chloride Pending Carbon Dioxide Pending Anion Gap Pending BUN Pending Creatinine Pending Estim Creat Clear Calc Est GFR (MDRD) Af Amer Pending Est GFR (MDRD) Non-Af Pending BUN/Creatinine Ratio Pending Glucose Pending Calcium Pending Magnesium Ferritin Total Bilirubin Pending AST Pending ALT Pending Alkaline Phosphatase Pending Troponin I B-Natriuretic Peptide Total Protein Pending Albumin Pending Globulin Albumin/Globulin Ratio Triglycerides Procalcitonin TSH COVID-19 (LISSA) Microbiology 06/20/20 05:10 Sputum, Expectorated/Coughed Gram Stain - Final 06/20/20 09:35 Urine, Random Streptococcus pneumoniae Antigen (M - Final 06/20/20 09:35 Urine, Random Legionella Antigen - Final 06/19/20 23:00 Mucosa - Nasopharyngeal Respiratory Panel (PCR) - Final Clinical Impression(s) from Imaging Studies Chest X-Ray 06/19/20 19:07 IMPRESSION: Interstitial pneumonia or edema. Electronically Signed: Benito Gonsales MD at 19:40 EDT , Service support , Chest CTA 06/19/20 20:33 IMPRESSION: Abnormal CTA chest examination, with bilateral pulmonary embolism. Bilateral pneumonia or edema and pleural effusions. Electronically Signed: Benito Gonsales MD at 21:29 EDT , Service support , ADDENDUM: 06/19/202137 IMPRESSION: Abnormal CTA chest examination, with bilateral pulmonary embolism. Bilateral pneumonia or edema and pleural effusions. N.B. : The above information has been verbally conveyed by Benito Gonsales MD to Amisha Francis RN, on 06/19/2020 21:31:10 (ET). Electronically Signed: Benito Gonsales MD at 21:29 EDT , Service support , Current Medications Acetaminophen (Tylenol) 650 mg PO Q6H PRN PRN PRN Reason: Pain Score 1-10/Temp > 100.7 F Apixaban (Eliquis) 10 mg PO BID [facility] Last Admin: 06/20/20 22:14 Dose: 10 mg Documented by: Benzonatate (Tessalon Perle) 100 mg PO TID PRN PRN PRN Reason: COUGH Sodium Chloride () 250 mls @ 15 mls/hr IV .[id number] PRN PRN Reason: Saline Flush Sodium Chloride () 250 mls @ 15 mls/hr IV .[id number] PRN PRN Reason: Additional IVPB Infusion Metoprolol Tartrate (Lopressor (Beta Alexy)) 50 mg PO BID [facility] Last Admin: 06/20/20 22:14 Dose: 50 mg Documented by: Ondansetron HCl (Zofran) 4 mg IV Q8H PRN PRN PRN Reason: NAUSEA/VOMITING Pantoprazole Sodium (Protonix) 20 mg PO DAILY [facility] Last Admin: 06/20/20 10:00 Dose: 20 mg Documented by: Sodium Chloride () 10 - 40 ml IV UD PRN PRN Reason: SALINE FLUSH Zinc Sulfate (Zinc Sulfate) 220 mg PO DAILY [facility] Last Admin: 06/20/20 10:00 Dose: 220 mg Documented by: Medical Necessity - Tobacco Use Smoking Status: Never smoker Assessment/Plan All Active Problems Atrial fibrillation with RVR (Acute) Pneumonia (Acute) Bilateral pleural effusion (Acute) RECOMMENDATIONS: 1. Continue twice daily Eliquis. 2. Rate/rhythm control strategy per hospitalist. Consider cardiology consultation. 3. Encourage incentive spirometer use and mobilize patient as tolerated. 4. Outpatient pulmonary follow-up within 2 weeks of discharge is warranted. IMPRESSIONS: 1. Shortness of breath Appears to be secondary to bilateral pulmonary emboli with subsequent new onset atrial fibrillation with rapid ventricular rate. I have a low clinical index of suspicion for underlying pulmonary infectious process. Coronavirus PCR was negative. The patient does not endorse any symptoms overtly concerning for COVID pneumonia. Agree with continuing anticoagulation without interruption, given unprovoked nature of VTE. Recommend performing a walking oximetry study prior to consideration for discharge home. The patient will require close outpatient pulmonary follow-up within 2 weeks of discharge. 2. New onset atrial fibrillation with rapid ventricular rate Potentially precipitated by bilateral pulmonary emboli noted on CTA chest. Continue current medical management. Echocardiogram did reveal a mildly depressed ejection fraction, but there was no evidence of RV dysfunction. 3. History of GERD Continue home Prilosec. This note was generated with [employer] dictation software. It may contain incorrect words, spelling, and punctuation that were not noted in checking the note before signing. Inpatient E&M: 34220 Subs Hosp L2
[2020-06-21 06:55] LABS: ALB/GLOB Ratio 0.8 RATIO (0.9-2.4); AST(SGOT) 22 U/L (15-37); Alanine Aminotransfer ALT/SGPT 56 U/L (16-61); Alkaline Phosphatase 54 U/L (45-117); Anion Gap 4 (5-15); BUN 13 mg/dL (7-18); BUN/Creat Ratio 12.3 RATIO (10-20); Calcium,Total 8.3 mg/dL (8.5-10.1); Chloride 109 mmol/L (98-107); Creatinine, Serum 1.06 mg/dL (0.70-1.30); EST Glomerular Filtration Rate 73 mL/min (>60); Est Glom Filt Rate - Afr Amer 88 mL/min (>60); Estimated Creatinine Clearance 68.08 ml/min; Globulin 3.6 g/dL (2.2-4.2); Glucose 96 mg/dL (74-106); Potassium 4.3 mmol/L (3.5-5.1); Protein, Total 6.6 g/dL (6.4-8.2); Sodium Level 138 mmol/L (136-145)
[2020-06-21] MEDS: APIXABAN 5 MG TABLET 10 MG PO ×2 (08:09→21:52)
[2020-06-21] MEDS: Pantoprazole Sodium 20 MG Tablet PO (08:09)
[2020-06-21] MEDS: Metoprolol Tartrate 50 MG Tablet PO ×2 (08:10→10:08)
[2020-06-21] MEDS: 0.9% Saline Lock 10 ML Syringe IV (08:56)
[2020-06-21] MEDS: Metoprolol Tartrate 5 MG/5 ML Vial IV (08:56)
--- NOTE | 2020-06-21 10:54 | CASEMGMT ---
Addendum entered by Karyn Martin 06/22/20 09:10: 06/21/2020 1400 This [facility] CM to room to update pt on Eliquis script/co-pay at this time, pt voices understanding and all questions answered at this time. Pt aware that 30 day free trial card already applied, voices understanding. Pt states that he [facility] but has not been too active with them previous. Pt states has been doing yearly appt at [facility] but has had no other care through them. [facility] aware [facility] and that med would need approved through them before [facility] could prescribe, voices understanding. Clinicals faxed to [facility]. Pt voices no further questions/concerns/needs at this time. Dipti WAKEFIELD CM Original Note: Dr. Noble is asking whether Xarelto would be any cheaper. Per [facility] pharmacy, pt has MCR D plan and per help line it is [employer]. Per formulary for same, Eliquis and Xarelto are both tier 2 and have quantity limits so will most likely be the same ortega. The total of $194.75 is most likely deductible as well and pt should only have to pay that total once. Per pharmacy clinical specialist, she cannot run the med for next month at this time to see what ortega will be at that time. Pt/Dr. Noble updated on all, voice understanding. Dipti WAKEFIELD CM
--- NOTE | 2020-06-21 14:20 | PCM.PN.HOSP ---
Patient Problems: Active and Suspected Problems Atrial fibrillation with RVR (Acute) Pneumonia (Acute) Bilateral pleural effusion (Acute) Reason for Visit: Follow-up on A. lawrence with RVR/Bilateral PE Subjective: Patient was seen and examined. Denied any new complaints. Heart rate remains uncontrolled. Given IV metoprolol x1. Oral metoprolol increased to 100 mg p.o. twice daily. Objective: Physical exam: General: Alert, Oriented x3, Cooperative HEENT: Atraumatic, PERRLA, EOMI, Normocephalic Neck: Supple, No JVD, Negative Carotid Bruits Lungs: Clear to auscultation, Normal air movement Cardiovascular: Normal S1, Normal S2, No murmurs, Irregular Rate, Tachycardic Abdomen: Bowel Sounds Present, Soft, Non Tender Extremities: No edema, Capillary Refill Less than 3 Seconds Skin: No rashes, No breakdown Musculoskeletal: No Tenderness to Palpation of Joints or Extremities Neurological: Cranial nerves II-XII grossly intact Psych/Mental Status: Normal Affect, Appropriate Vitals/I&O's: Vital Signs Temp Pulse Resp BP Pulse Ox 98.5 F 101 H 20 H 137/91 H 96 06/21/20 08:54 06/21/20 10:08 06/21/20 08:54 06/21/20 08:54 06/21/20 08:54 Oxygen Delivery Method Room Air Weight: 102.6 kg Body Mass Index (BMI) 31.6 Intake and Output for Last 24 Hours 06/19/20 06/20/20 06/21/20 23:59 23:59 23:59 Intake Total 871.75 / 879.25 1276.71 / 1276.71 0 / 0 Output Total 0 / 0 Balance 871.75 / 879.25 1276.71 / 1276.71 0 / 0 Microbiology Past 72 Hours 06/20/20 05:10 Sputum, Expectorated/Coughed Gram Stain - Final 06/20/20 05:10 Sputum, Expectorated/Coughed Respiratory Culture - Preliminary Appears to be normal respiratory jim. Further studies to follow. 06/20/20 09:35 Urine, Random Streptococcus pneumoniae Antigen (M - Final 06/20/20 09:35 Urine, Random Legionella Antigen - Final 06/19/20 23:00 Mucosa - Nasopharyngeal Respiratory Panel (PCR) - Final Laboratory Results 06/21/20 06:14: WBC 7.7, RBC 4.57 L, Hgb 14.3, Hct 43.4, MCV 95.0 H, MCH 31.3, MCHC 32.9, RDW Std Deviation 47.8 H, RDW Coeff of Iesha 13.9, Plt Count 256, MPV 9.7, Immature Gran % (Auto) 0.300, Neut % (Auto) 75.8 H, Lymph % (Auto) 15.3 L, [place] % (Auto) 6.4, Eos % (Auto) 1.8, Baso % (Auto) 0.4, Absolute Neuts (auto) 5.8, Absolute Lymphs (auto) 1.17, Nucleated RBC % 0 06/21/20 06:14: Sodium 138, Potassium 4.3, Chloride 109 H, Carbon Dioxide 25.0, Anion Gap 4 L, BUN 13, Creatinine 1.06, Estim Creat Clear Calc 68.08, Est GFR (MDRD) Af Amer 88, Est GFR (MDRD) Non-Af 73, BUN/Creatinine Ratio 12.3, Glucose 96, Calcium 8.3 L, Total Bilirubin 1.10 H, AST 22, ALT 56, Alkaline Phosphatase 54, Total Protein 6.6, Albumin 3.0 L, Globulin 3.6, Albumin/Globulin Ratio 0.8 L Current Medications Acetaminophen (Tylenol) 650 mg PO Q6H PRN PRN PRN Reason: Pain Score 1-10/Temp > 100.7 F Apixaban (Eliquis) 10 mg PO BID [facility] Last Admin: 06/21/20 08:09 Dose: 10 mg Documented by: Benzonatate (Tessalon Perle) 100 mg PO TID PRN PRN PRN Reason: COUGH Sodium Chloride () 250 mls @ 15 mls/hr IV .[id number] PRN PRN Reason: Saline Flush Sodium Chloride () 250 mls @ 15 mls/hr IV .[id number] PRN PRN Reason: Additional IVPB Infusion Metoprolol Tartrate (Lopressor (Beta Alexy)) 100 mg PO BID [facility] Ondansetron HCl (Zofran) 4 mg IV Q8H PRN PRN PRN Reason: NAUSEA/VOMITING Pantoprazole Sodium (Protonix) 20 mg PO DAILY [facility] Last Admin: 06/21/20 08:09 Dose: 20 mg Documented by: Sodium Chloride () 10 - 40 ml IV UD PRN PRN Reason: SALINE FLUSH Last Admin: 06/21/20 08:56 Dose: 10 ml Documented by: Zinc Sulfate (Zinc Sulfate) 220 mg PO DAILY [facility] Last Admin: 06/21/20 08:10 Dose: 220 mg Documented by: Medical Necessity - Tobacco Use Smoking Status: Never smoker Assessment/Plan All Active Problems Atrial fibrillation with RVR (Acute) Pneumonia (Acute) Bilateral pleural effusion (Acute) 1. A. fib with RVR, new onset, remains uncontrolled, Status post IV metoprolol x1 Continue on metoprolol 100 mg p.o. twice daily, Eliquis 2. Cardiomyopathy, EF 45% on 2D echo, mild global hypokinesis of left ventricle 3. GERD, on PPI 4. DVT PPx- on Eliquis Inpatient E&M: [id number] [facility] Hosp L2
[2020-06-21] MEDS: Amiodarone 200 MG Tablet PO ×2 (15:53→21:52)
[2020-06-21] MEDS: Metoprolol Tartrate 100 MG Tablet PO (21:52)
[2020-06-22 03:00] VITALS: PULSE 105
[2020-06-22 03:50] VITALS: BP 158/76; PULSE 90; RESP 18; TEMP 36.9; O2SAT 95
[2020-06-22 06:53] VITALS: PULSE 99
[2020-06-22 07:48] VITALS: BP 143/89; PULSE 104; RESP 16; TEMP 36.8; O2SAT 98
[2020-06-22 07:51] VITALS: PULSE 104
[2020-06-22] MEDS: Metoprolol Tartrate 100 MG Tablet PO (07:51)
[2020-06-22] MEDS: Amiodarone 200 MG Tablet PO (07:51)
[2020-06-22] MEDS: APIXABAN 5 MG TABLET 10 MG PO (07:51)
[2020-06-22] MEDS: Pantoprazole Sodium 20 MG Tablet PO (07:51)
[2020-06-22 09:46] VITALS: BP 135/90; BP 138/96; BP 144/97; PULSE 86; PULSE 89; PULSE 90
--- NOTE | 2020-06-22 10:01 | PCM.DC ---
- Discharge Diagnoses Current Active Problems: Current Active and Chronic Problems Atrial fibrillation with RVR (Acute) Pneumonia (Acute) Bilateral pleural effusion (Acute) You will use the following diet at home:: Cardiac Your food should be the consistency of: Regular Your liquids should be the consistency of: Regular/Thin Discharge Activity: Return to Normal Activity Allergies/Adverse Reactions: Allergies ragweed pollen Allergy (Verified 06/19/20 21:53) NEEDS FOLLOW-UP Sulfa (Sulfonamide Antibiotics) Allergy (Verified 06/19/20 17:46) Hives Medications to take at Discharge Omeprazole [Prilosec] 20 mg PO DAILY 09/19/15 Zinc Sulfate (50mg elemental) [Zinc Sulfate] 220 mg PO DAILY 06/19/20 Apixaban [Eliquis] 5 mg PO BID 30 Days #60 tab.ds.pk 06/20/20 Apixaban [Eliquis] 10 mg PO BID 6 Days #12 tab 06/20/20 Amiodarone HCl [Cordarone] 200 mg PO BID #35 tab 06/22/20 Metoprolol Tartrate [Lopressor (beta magdy)] 100 mg PO BID #60 tab 06/22/20 The following prescriptions were given: Amiodarone HCl [Cordarone] 200 mg PO BID #35 tab Transmission Status: Sent to [facility]/pharmacy #[id number] Apixaban [Eliquis] 10 mg PO BID 6 Days #12 tab Transmission Status: Received by [facility]/pharmacy #[id number] Apixaban [Eliquis] 5 mg PO BID 30 Days #60 tab.ds.pk Transmission Status: Received by [facility]/pharmacy #[id number] Metoprolol Tartrate [Lopressor (beta magdy)] 100 mg PO BID #60 tab Transmission Status: Pending to [facility]/pharmacy #[id number] Please follow up with your Primary Care Physician in: 1-2 weeks Test Results: Test results from this visit will be discussed in further detail at your follow-up appointment, if applicable. Please Follow Up With: Cricket Perkins MD When: 2 weeks Please Follow Up With: Rob Overton MD When: 1 month Proposed Discharge Date: 06/22/20
--- NOTE | 2020-06-22 10:35 | PCM.PN.PUL ---
Patient Problems: Active and Suspected Problems Atrial fibrillation with RVR (Acute) Pneumonia (Acute) Bilateral pleural effusion (Acute) Subjective: Patient did well overnight. No acute issues were reported. Patient currently tolerating room air. Heart rate has been better controlled on telemetry. Patient believes he is strong enough to go home. Patient has not walked in the hallways extensively. - Physical Exam Vitals/I&O's: Vital Signs Temp Pulse Resp BP Pulse Ox 36.8 C 90 16 144/97 H 98 06/22/20 07:48 06/22/20 09:46 06/22/20 07:48 06/22/20 09:46 06/22/20 07:48 Oxygen Delivery Method Room Air Weight: 102.6 kg Body Mass Index (BMI) 31.6 Orthostatic Vital Signs Start: 06/22/20 09:46 Freq: q24h Status: Active Protocol: Activity Type Activity Date Activity User E-Sign Co-Sign Detail Recorded Client Recorded Date Recorded By Document 06/22/20 09:46 EY [id number] 06/22/20 09:47 EY 06/22/20 09:46 Orthostatic Vitals Standing -Blood Pressure (90/60-120/80) 138/96 H -Extremity Use Left Arm -Pulse Rate (60-100) 86 Sitting -Blood Pressure (90/60-120/80) 135/90 H -Extremity Use Left Arm -Pulse Rate (60-100) 89 Lying -Blood Pressure (90/60-120/80) 144/97 H -Extremity Use Left Arm -Pulse Rate (60-100) 90 Intake and Output for Last 24 Hours 06/20/20 06/21/20 06/22/20 23:59 23:59 23:59 Intake Total 1276.71 / 1276.71 1310 / 1310 100 / 100 Output Total 0 / 0 Balance 1276.71 / 1276.71 1310 / 1310 100 / 100 General: Alert, Oriented x3, Cooperative, No apparent distress, Well developed, Well nourished, - - Speaking in full sentences. HEENT: Atraumatic, PERRLA, EOMI, Normocephalic, - - No scleral icterus or injection noted Oral: Moist Mucosa, No Gingival or Mucosal Lesions/ Ulcerations Neck: Supple, No JVD, No Nodes, Trachea Midline Lungs: Clear to auscultation, Normal air movement, No rhonchi, No wheeze, No rales Cardiovascular: Normal S1, Normal S2, No murmurs, Irregular Rate, No rub noted, No Gallop Abdomen: Bowel Sounds Present, Soft, Non Tender, Non-Distended Extremities: No clubbing, No cyanosis, No edema Skin: No rashes, No breakdown Musculoskeletal: No Tenderness to Palpation of Joints or Extremities Lymphatic: No Cervical, Supraclavicular, or Inguinal Adenopathy Neurological: Cranial nerves II-XII grossly intact, Neuro grossly intact, Motor Exam 5/5 strength throughout Psych/Mental Status: Alert and oriented to time, place, person, mood and affect Microbiology Past 72 Hours 06/19/20 22:00 Blood Culture (Wb) - Left Hand Blood Culture - Preliminary No growth in 48 hours. 06/20/20 05:10 Sputum, Expectorated/Coughed Gram Stain - Final 06/20/20 05:10 Sputum, Expectorated/Coughed Respiratory Culture - Final Mixed normal respiratory jim. No Streptococcus pneumoniae, beta-hemolytic Streptococcus or Staphylococcus aureus isolated. 06/20/20 09:35 Urine, Random Streptococcus pneumoniae Antigen (M - Final 06/20/20 09:35 Urine, Random Legionella Antigen - Final 06/19/20 23:00 Mucosa - Nasopharyngeal Respiratory Panel (PCR) - Final Current Medications Acetaminophen (Tylenol) 650 mg PO Q6H PRN PRN PRN Reason: Pain Score 1-10/Temp > 100.7 F Amiodarone HCl (Cordarone) 200 mg PO BID [facility] Last Admin: 06/22/20 07:51 Dose: 200 mg Documented by: Apixaban (Eliquis) 10 mg PO BID [facility] Last Admin: 06/22/20 07:51 Dose: 10 mg Documented by: Benzonatate (Tessalon Perle) 100 mg PO TID PRN PRN PRN Reason: COUGH Sodium Chloride () 250 mls @ 15 mls/hr IV .[id number] PRN PRN Reason: Saline Flush Sodium Chloride () 250 mls @ 15 mls/hr IV .[id number] PRN PRN Reason: Additional IVPB Infusion Metoprolol Tartrate (Lopressor (Beta Alexy)) 100 mg PO BID [facility] Last Admin: 06/22/20 07:51 Dose: 100 mg Documented by: Ondansetron HCl (Zofran) 4 mg IV Q8H PRN PRN PRN Reason: NAUSEA/VOMITING Pantoprazole Sodium (Protonix) 20 mg PO DAILY [facility] Last Admin: 06/22/20 07:51 Dose: 20 mg Documented by: Sodium Chloride () 10 - 40 ml IV UD PRN PRN Reason: SALINE FLUSH Last Admin: 06/21/20 08:56 Dose: 10 ml Documented by: Zinc Sulfate (Zinc Sulfate) 220 mg PO DAILY [facility] Last Admin: 06/22/20 07:51 Dose: 220 mg Documented by: Medical Necessity - Tobacco Use Smoking Status: Never smoker Assessment/Plan All Active Problems Atrial fibrillation with RVR (Acute) Pneumonia (Acute) Bilateral pleural effusion (Acute) RECOMMENDATIONS: 1. Continue twice daily Eliquis. 2. Rate/rhythm control strategy per hospitalist. 3. Encourage incentive spirometer use and mobilize patient as tolerated. 4. Outpatient pulmonary follow-up within 2 weeks of discharge is warranted. IMPRESSIONS: 1. Shortness of breath Appears to be secondary to bilateral pulmonary emboli with subsequent new onset atrial fibrillation with rapid ventricular rate. Agree with continuing anticoagulation without interruption, given unprovoked nature of VTE. Recommend performing a walking oximetry study prior to consideration for discharge home. The patient will require close outpatient pulmonary follow-up with nurse practitioner 2 weeks of discharge. 2. New onset atrial fibrillation with rapid ventricular rate Potentially precipitated by bilateral pulmonary emboli noted on CTA chest. Continue current medical management. Echocardiogram did reveal a mildly depressed ejection fraction, but there was no evidence of RV dysfunction. Continue anticoagulation 3. History of GERD Continue home Prilosec. Inpatient E&M: [id number] [facility] Hosp L2
--- NOTE | 2020-06-22 10:41 | CASEMGMT ---
Call from Peg at [facility] inquiring about pt and she is updated that pt to be discharged today, voices understanding. D/C summ/instructions to be faxed at this time. Dipti WAKEFIELD CM
--- NOTE | 2020-06-22 10:50 | PHA.DC.MC ---
Pharmacy Service has performed discharge medication reconciliation and counseling for this patient. The patient was counseled on the following discharge medications and changes in medications for homegoing were reviewed. 1. ELIQUIS 2. AMIODARONE 3. LOPRESSOR The Reason for Use, instructions for use, and potential side effects were reviewed for all new medications. The patient's questions regarding all of their medications were answered. The patient was able to verbally demonstrate an understanding of their discharge medications. Home Medications Omeprazole [Prilosec] 20 mg PO DAILY 09/19/15 Zinc Sulfate (50mg elemental) [Zinc Sulfate] 220 mg PO DAILY 06/19/20 Apixaban [Eliquis] 5 mg PO BID 30 Days #60 tab.ds.pk 06/20/20 Apixaban [Eliquis] 10 mg PO BID 6 Days #12 tab 06/20/20 Amiodarone HCl [Cordarone] 200 mg PO BID #35 tab 06/22/20 Metoprolol Tartrate [Lopressor (beta magdy)] 100 mg PO BID #60 tab 06/22/20 The patient's discharge medication list was reviewed for discrepancies and discrepancies were resolved.
--- NOTE | 2020-06-22 11:29 | DS.PCM_ITS ---
<Ganesh Velasco - Last Filed: 06/22/20 11:29> Discharge Date and Diagnosis Date of Admission: 06/19/20 Date of Discharge: 06/22/20 - Primary Discharge Diagnosis Acute Problems: Active Problems Atrial fibrillation with RVR (Acute) Acute BL PE, right soleus DVT Cardiomyopathy, subtype unclear - Secondary Discharge Diagnosis Chronic Problems: Chronic Problems History of esophageal dilatation (Chronic) Hospital Course and Treatment Imaging Results: RAD/Chest 1 View (Portable) IMPRESSION: Interstitial pneumonia or edema. CT/CTA Chest W/WO Contrast IMPRESSION: Abnormal CTA chest examination, with bilateral pulmonary embolism. Bilateral pneumonia or edema and pleural effusions. N.B. : The above information has been verbally conveyed by Benito Gonsales MD to Amisha Francis RN, on 06/19/2020 21:31:10 (ET). Echo: Interpretation Summary Normal LV size. The estimated ejection fraction is 45 %. Unable to assess diastolic dysfunction due to arrhythmia. Mild (1+) tricuspid valve insufficiency. Venous US: Interpretation Summary Acute deep venous thrombosis right soleus vein Pulsatile venous flow is noted bilaterally consistent with proximal venous hypertension or obstruction. Clinical correlation is appropriate Patent and compressible bilateral great saphenous veins Consults: Brown - pulm Operations: None Procedures: 2-D Echocardiogram Summary of Care Provided: Hospital Course: The patient is a 69 year old M with pmhx of GERD who presented to the ER with c/o SOB x 1 week worse with exertion better at rest and possibly blood tinged sputum. He was found to have Afib with RVR which he denies a hx of. He was placed on cardizem. CTA chest was obtained and showed BL PEs. He was placed on heparin. Covid was negative. There was suspicion for pna and he was placed on rocephin and azithro. He was admitted to the PCU. Pulmonary medicine was consulted. Abx were discontinued. He was transitioned to eliquis. He was placed on metoprolol [address] bid[address] Noble spoke with cardiology who recommended adding Amiodarone 200 mg po bid x 14 days followed by 20 0mg po daily. Rate improved. SOB resolved. He was discharged home in stable condition. He will follow up with hematology in 1 month, Cardiology 2 weeks, and with a PCP in 1-2 weeks. This patient was seen by Ganesh Velasco PA-C under the supervision of Doctor Real. [] - Physical Exam Vitals/I&O's: Vital Signs Temp Pulse Resp BP Pulse Ox 98.2 F 90 16 144/97 H 98 06/22/20 07:48 06/22/20 09:46 06/22/20 07:48 06/22/20 09:46 06/22/20 07:48 Oxygen Delivery Method Room Air Weight: 226 lb 3.108 oz Body Mass Index (BMI) 31.6 Orthostatic Vital Signs Start: 06/22/20 09:46 Freq: q24h Status: Active Protocol: Activity Type Activity Date Activity User E-Sign Co-Sign Detail Recorded Client Recorded Date Recorded By Document 06/22/20 09:46 EY [id number] 06/22/20 09:47 EY 06/22/20 09:46 Orthostatic Vitals Standing -Blood Pressure (90/60-120/80) 138/96 H -Extremity Use Left Arm -Pulse Rate (60-100) 86 Sitting -Blood Pressure (90/60-120/80) 135/90 H -Extremity Use Left Arm -Pulse Rate (60-100) 89 Lying -Blood Pressure (90/60-120/80) 144/97 H -Extremity Use Left Arm -Pulse Rate (60-100) 90 Intake and Output for Last 24 Hours 06/20/20 06/21/20 06/22/20 23:59 23:59 23:59 Intake Total 1276.71 / 1276.71 1310 / 1310 100 / 100 Output Total 0 / 0 Balance 1276.71 / 1276.71 1310 / 1310 100 / 100 General: Alert, Oriented x3, Cooperative HEENT: Atraumatic, PERRLA, EOMI, Normocephalic Neck: Supple, No JVD, Negative Carotid Bruits Lungs: Clear to auscultation, Normal air movement Cardiovascular: Regular rate, No murmurs Abdomen: Bowel Sounds Present, Soft, Non Tender Extremities: No edema, Capillary Refill Less than 3 Seconds Skin: No rashes, No breakdown Musculoskeletal: No Tenderness to Palpation of Joints or Extremities Neurological: Cranial nerves II-XII grossly intact Psych/Mental Status: Normal Affect, Appropriate, Alert and oriented to time, place, person, mood and affect Microbiology Past 72 Hours 06/19/20 22:00 Blood Culture (Wb) - Left Hand Blood Culture - Preliminary No growth in 48 hours. 06/20/20 05:10 Sputum, Expectorated/Coughed Gram Stain - Final 06/20/20 05:10 Sputum, Expectorated/Coughed Respiratory Culture - Final Mixed normal respiratory jim. No Streptococcus pneumoniae, beta-hemolytic Streptococcus or Staphylococcus aureus isolated. 06/20/20 09:35 Urine, Random Streptococcus pneumoniae Antigen (M - Final 06/20/20 09:35 Urine, Random Legionella Antigen - Final 06/19/20 23:00 Mucosa - Nasopharyngeal Respiratory Panel (PCR) - Final Current Medications Acetaminophen (Tylenol) 650 mg PO Q6H PRN PRN PRN Reason: Pain Score 1-10/Temp > 100.7 F Amiodarone HCl (Cordarone) 200 mg PO BID [facility] Last Admin: 06/22/20 07:51 Dose: 200 mg Documented by: Apixaban (Eliquis) 10 mg PO BID [facility] Last Admin: 06/22/20 07:51 Dose: 10 mg Documented by: Benzonatate (Tessalon Perle) 100 mg PO TID PRN PRN PRN Reason: COUGH Sodium Chloride () 250 mls @ 15 mls/hr IV .[id number] PRN PRN Reason: Saline Flush Sodium Chloride () 250 mls @ 15 mls/hr IV .[id number] PRN PRN Reason: Additional IVPB Infusion Metoprolol Tartrate (Lopressor (Beta Alexy)) 100 mg PO BID [facility] Last Admin: 06/22/20 07:51 Dose: 100 mg Documented by: Ondansetron HCl (Zofran) 4 mg IV Q8H PRN PRN PRN Reason: NAUSEA/VOMITING Pantoprazole Sodium (Protonix) 20 mg PO DAILY [facility] Last Admin: 06/22/20 07:51 Dose: 20 mg Documented by: Sodium Chloride () 10 - 40 ml IV UD PRN PRN Reason: SALINE FLUSH Last Admin: 06/21/20 08:56 Dose: 10 ml Documented by: Zinc Sulfate (Zinc Sulfate) 220 mg PO DAILY [facility] Last Admin: 06/22/20 07:51 Dose: 220 mg Documented by: Discharge Diet: Low fat/ Low Cholesterol, 2000 mg Sodium Diet Discharge Activity: Return to Normal Activity Home Medications: Medications to take at Discharge Omeprazole [Prilosec] 20 mg PO DAILY 09/19/15 Zinc Sulfate (50mg elemental) [Zinc Sulfate] 220 mg PO DAILY 06/19/20 Apixaban [Eliquis] 5 mg PO BID 30 Days #60 tab.ds.pk 06/20/20 Apixaban [Eliquis] 10 mg PO BID 6 Days #12 tab 06/20/20 Amiodarone HCl [Cordarone] 200 mg PO BID #35 tab 06/22/20 Metoprolol Tartrate [Lopressor (beta alexy)] 100 mg PO BID #60 tab 06/22/20 Following Prescriptions Were Given to Patient: Amiodarone HCl [Cordarone] 200 mg PO BID #35 tab Transmission Status: Received by [id number] Apixaban [Eliquis] 10 mg PO BID 6 Days #12 tab Transmission Status: Received by [id number] Apixaban [Eliquis] 5 mg PO BID 30 Days #60 tab.ds.pk Transmission Status: Received by [id number] Metoprolol Tartrate [Lopressor (beta alexy)] 100 mg PO BID #60 tab Transmission Status: Received by [id number] Primary Care Physician: Care Physician,No Primary [Primary Care Provider] - Please follow up with your Primary Care Physician in: 1-2 weeks Please Follow Up With: Cricket Perkins MD When: 2 weeks Please Follow Up With: Rob Overton MD When: 1 month Disposition: Home Minutes spent on discharge:: 35 Patient Condition:: Stable Medical Necessity - Tobacco Use Smoking Status: Never smoker Meaningful Use Info Meaningful Use Diagnoses (Choose all that apply): VTE - VTE Anticoag overlap given w/in hospital stay or rx'd at pa?: No Pt receive overlap for 5 days?: No Reason overlap not ordered, prescribed, or given for 5 days: Procedure Not Indicated <Rahda Noble - Last Filed: 06/22/20 15:32> Discharge Date and Diagnosis - Secondary Discharge Diagnosis Chronic Problems: Chronic Problems History of esophageal dilatation (Chronic) Hospital Course and Treatment Summary of Care Provided: This patient was seen in conjunction with KEVAN Wade. I have independently interviewed and examined the patient and reviewed pertinent historical, laboratory, and other data. Please refer to KEVAN Wade note for his patient's presentation, findings, and recommendations. I have reviewed and his note and concur with his documentation 89-year-old tejada with past medical history of GERD/esophageal dilatation who comes in 1 week of shortness of breath, described as pleuritic and with productive cough. Patient was found to have bilateral opacities. CTA chest showed bilateral PE. He was also found to be in A. fib with RVR. His COVID test was negative. Patient was initially managed on IV azithromycin and ceftriaxone which were later discontinued. Patient was managed on Cardizem drip, transitioned to oral metoprolol. He was started also on heparin drip and transition to Eliquis. He was initially in the ICU and transferred to the PCU. His heart rate was uncontrolled the day before discharge, and amiodarone 200 mg twice daily was added. Discussed with cardiology, patient will be on amiodarone 200 twice daily x2 weeks, and then 200 mg daily, follow-up with cardiology in 1 week. Patient had had a Doppler ultrasound of the leg that showed right soleus DVT. This was believed not to be provoked. He will follow-up with hematology in 1 month. On the day of discharge, patient was seen and examined. I had an extensive talk with him over 2 days of his hospital stay. I explained everything to him. All questions were answered. Patient knows to be careful was on anticoagulants to prevent bleeding. Physical Exam: Gen: Comfortable, not pale, not jaundiced CVS:HS I +II, regular, no murmurs RESP: CTA GI: BS present and normal, soft, nontender, no palpable organs EXT:No edema - Physical Exam Vitals/I&O's: Vital Signs Temp Pulse Resp BP Pulse Ox 98.2 F 90 16 144/97 H 98 06/22/20 07:48 06/22/20 09:46 06/22/20 07:48 06/22/20 09:46 06/22/20 07:48 Oxygen Delivery Method Room Air Weight: 102.6 kg Body Mass Index (BMI) 31.6 Orthostatic Vital Signs Start: 06/22/20 09:46 Freq: q24h Status: Active Protocol: Activity Type Activity Date Activity User E-Sign Co-Sign Detail Recorded Client Recorded Date Recorded By Document 06/22/20 09:46 BERTHA [id number] 06/22/20 09:47 EY 06/22/20 09:46 Orthostatic Vitals Standing -Blood Pressure (90/60-120/80) 138/96 H -Extremity Use Left Arm -Pulse Rate (60-100) 86 Sitting -Blood Pressure (90/60-120/80) 135/90 H -Extremity Use Left Arm -Pulse Rate (60-100) 89 Lying -Blood Pressure (90/60-120/80) 144/97 H -Extremity Use Left Arm -Pulse Rate (60-100) 90 Intake and Output for Last 24 Hours 06/20/20 06/21/20 06/22/20 23:59 23:59 23:59 Intake Total 1276.71 / 1276.71 1310 / 1310 100 / 100 Output Total 0 / 0 Balance 1276.71 / 1276.71 1310 / 1310 100 / 100 Microbiology Past 72 Hours 06/19/20 22:00 Blood Culture (Wb) - Left Hand Blood Culture - Preliminary No growth in 48 hours. 06/20/20 05:10 Sputum, Expectorated/Coughed Gram Stain - Final 06/20/20 05:10 Sputum, Expectorated/Coughed Respiratory Culture - Final Mixed normal respiratory jim. No Streptococcus pneumoniae, beta-hemolytic Streptococcus or Staphylococcus aureus isolated. 06/20/20 09:35 Urine, Random Streptococcus pneumoniae Antigen (M - Final 06/20/20 09:35 Urine, Random Legionella Antigen - Final 06/19/20 23:00 Mucosa - Nasopharyngeal Respiratory Panel (PCR) - Final Inpatient E&M: 11595 Disch Hosp
== END 2020-06-22 10:57 | disposition home or self-care (01) | DRG 176 ==
LOC: ED 20:20 → PCU 21:39 → ICU 06-20 06:32 → PCU 06-20 13:07
PROVIDERS: Admitting Provider Hospitalist; Emergency Provider Emergency Medicine; Referring Provider Hospitalist; Visit Provider Internal Medicine
DX: I26.99 Other pulmonary embolism without acute cor pulmonale (principal); I42.9 Cardiomyopathy, unspecified; I48.91 Unspecified atrial fibrillation; I82.461 Acute embolism and thrombosis of right calf muscular vein; K21.9 Gastro-esophageal reflux disease without esophagitis; Z79.899 Other long term (current) drug therapy
CPT/HCPCS: 36415; 71045; 71275; 80053; 82728; 83735; 83880; 84145; 84443; 84478; 84484; 85025; 85610; 85730; 87040; 87070; 87205; 87449; 87633; 87635; 93005; 93306; 93970; 94667; 94668; 94799; 97802; 99251; 99283; J7040; Q9957; Q9967; A4216; C8929; G0463; U0003

== ENCOUNTER 2020-08-30 10:25 | Day surgery (SDC) | payer MEDICARE, OTHER, SELFPAY ==
[2020-08-04 08:33] VITALS: BMI 31.1
[2020-08-21 11:32] LABS: International Normalized Ratio 1.2; Prothrombin Time (Protime)PT. 14.8 SECONDS (11.7-14.9)
[2020-08-21 11:53] LABS: Anion Gap 7 (5-15); BUN 18 mg/dL (7-18); BUN/Creat Ratio 14.5 RATIO (10-20); Calcium,Total 8.2 mg/dL (8.5-10.1); Chloride 105 mmol/L (98-107); Creatinine, Serum 1.24 mg/dL (0.70-1.30); EST Glomerular Filtration Rate 61 mL/min (>60); Est Glom Filt Rate - Afr Amer 74 mL/min (>60); Glucose 108 mg/dL (74-106); Potassium 4.3 mmol/L (3.5-5.1); Sodium Level 141 mmol/L (136-145)
--- NOTE | 2020-08-28 08:00 | HP_ITS ---
HPI HPI History of Present Illness Surgical H&P: Yes Details: Pleasant 70-year-old gentleman who was admitted to the hospital through the ER with shortness of breath. An EKG was performed and he was noted to be in atrial fibrillation with a rapid ventricular response rate. He had denied any knowledge of the above. He underwent a CTA of his chest which demonstrated evidence of bilateral pulmonary emboli. He was placed on heparin, COVID test was negative. He was treated with Rocephin and azithromycin for possible pneumonia. He was then transitioned to Eliquis. Cardiology was called to see the patient and we managed him peripherally by putting him on metoprolol 100 mg twice a day and amiodarone 200 mg twice a day for 14 days and then 200 mg a day. An echocardiogram performed demonstrated an ejection fraction of 45% with mild focal aortic calcification. Pt denies chest, arm, jaw, or neck discomfort. His exercise tolerance is stable. Pt denies symptoms of CHF, palpitations, lightheadedness, dizziness, near syncopal or syncopal episodes. Pt denies edema or claudication issues. Pt. denies orthopnea, PND, blood in urine, blood in stool, epistaxis, myalgia, or unexplainable fatigue. 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 Accompanied by: None Is patient in pain?: No Allergies ragweed pollen Allergy (Verified 08/04/20 08:33) NEEDS FOLLOW-UP Sulfa (Sulfonamide Antibiotics) Allergy (Verified 08/04/20 08:33) Hives Medications Omeprazole [Prilosec] 20 mg PO DAILY 09/19/15 [History Confirmed 07/24/20] amiodarone 200 mg tablet 200 mg PO DAILY #60 tab 07/05/20 [Rx Confirmed 07/24/20] lisinopril 10 mg tablet 10 mg PO DAILY #60 tab 07/05/20 [Rx Confirmed 07/24/20] metoprolol tartrate 100 mg tablet 100 mg PO BID #60 tab 07/05/20 [Rx Confirmed 07/24/20] apixaban 5 mg tablet 5 mg PO BID #180 tab 07/31/20 [Rx] [facility] Social History (Updated 08/04/20 @ 12:55 by Bret Velarde INSTRUCTIONAL DEVELOPER, INSTRUCTIONAL DEVELOPER-C) Smoking Status: Never smoker alcohol intake: current alcohol intake frequency: holidays/special occasions only substance use type: does not use ROS Const Const: Negative for fatigue, weakness, body ache, fever(s) or chills ENT ENT: Negative for dizziness Cardio Chest Pain: No Palpitations: No Edema: None Muscle aches with walking: None Resp Respiratory: Negative for SOB with activity, SOB at rest, SOB orthopnea\SOB lying down or paroxysmal nocturnal dyspnea GI GI: Negative nausea, vomiting blood/hematemesis, bright, red blood in stools or black,tarry stools : Negative for hematuria or frequent nighttime urination/ nocturia Musc Musc: Negative for muscle aches/ myalgia Skin Skin: Negative non-healing lesions or rash Neuro Neuro: Negative for dizziness, lightheadedness, near syncope, syncope, orthostatic symptoms or weakness Endo Endo: Negative for fatigue Allergy Allergy/Immunology: Negative for rash Cardiology Exam Const Appearance: cooperative, healthy appearing, comfortable and no acute distress Nutritional Appearance: well nourished and obese Orientation: alert, awake and oriented x3 Head Head: normal to inspection Ears: hearing grossly normal bilaterally Nose: external nose normal Face and Sinus: face symmetric Mouth: oral mucosae normal Eyes General: appearance normal, both eyes and all related structures Eyelids: eyelids normal EOM: EOM intact bilaterally Neck Neck: normal visual inspection and no JVD Carotids: normal carotid upstroke Chest Chest inspection: normal inspection of the chest, symmetric chest movement and normal respiratory effort; negative cough Auscultation: Bilateral: Clear to Auscultation Cardio Rate: regular rate Rhythm: irregularly irregular Heart sounds: S1 normal and S2 normal; negative rub, gallop or murmur GI GI: normal to inspection and obese Neuro General: alert, awake, oriented x3 and CN's II-XI intact bilaterally Skin Skin: no rashes or lesions noted Extremities Pulses: Normal: Right Posterior Tibial Pulse, Left Posterior Tibial Pulse, Right Radial Pulse, Left Radial Pulse Lower Extremity Edema: None: Bilateral Psych Psychological: normal affect Assessment & Plan 1. Typical atrial flutter I48.3 Plan Patient is EKG today in office continues to show atrial fibrillation/flutter. His heart rate is noted to be 89 bpm. His QTC is noted be 434 and his QRS of 102. Patient appears relatively asymptomatic with atrial fibrillation. However, his ejection fraction is reduced. His most recent echocardiogram from June 2020 revealed an ejection fraction of 45% and normal left and right atrial size. He has been on his anticoagulation consistently. His heart rate is well controlled today. It was discussed with him in regards to proceeding with cardioversion with amiodarone assistance. If this is successful, hopefully his ejection fraction improves. In the long run, amiodarone can be considered to be discontinued as long as his rate and rhythm remains controlled. Other etiology to consider is obstructive sleep apnea, which can be evaluated at a later date and/or with primary care physician. Orders Orders: 12 Lead EKG performed by [facility] Today Cardioversion Today Basic Metabolic Profile (BMP) Today Prothrombin Time w/INR Today 2. Non-ischemic cardiomyopathy I42.8 Plan At this time, this is thought to be related to cardiac mediated. His heart rate is well controlled. He will proceed with cardioversion. He will then present to the office in approximately 3 months to evaluate overall progress. At that time, we will consider repeat echocardiogram to evaluate for hopeful improvement in his ejection fraction. He denies symptoms today seem to suggest coronary artery disease, though this can be reconsidered at a later date. His electrolytes on 06/21/2020 were stable. His thyroid function test on 06/21/2020 was also noted to be normal. He does not appear to have any significant valvular abnormality. Orders Orders: Basic Metabolic Profile (BMP) Today Prothrombin Time w/INR Today 3. Bilateral pulmonary embolism I26.99 Plan He has been evaluated by primary care physician and hematology/oncology. It appears that anticoagulation is recommended to continue long-term anticoagulation and consider further cancer work-up. Plan Detail Other Orders Orders: 12 Lead EKG performed by [facility] Today I48.91 Cardioversion Today I48.91 Prothrombin Time w/INR Today I82.401 Additional Comments Thank you for allowing us to participate in the patients plan of care, if you have any questions please do not hesitate to call. This note was generated using a voice recognition system and there may be incorrect words, spelling or punctuation that were not noted when reviewing the office note prior to saving. Follow Up Cardioversion 1 week post DCCV ECG 3 Months (INSTRUCTIONAL DEVELOPER/PA) Coding Level of Care Code Off vis,est,level 4 Diagnoses Typical atrial flutter I48.3 Non-ischemic cardiomyopathy I42.8 Bilateral pulmonary embolism I26.99 Coding Level of Care Code Off vis,est,level 4 Diagnoses Typical atrial flutter I48.3 Non-ischemic cardiomyopathy I42.8 Bilateral pulmonary embolism I26.99 Supplemental Info Supplemental Information Echocardiogram from 06/19/2020: Interpretation Summary Normal LV size. The estimated ejection fraction is 45 %. Unable to assess diastolic dysfunction due to arrhythmia. Mild (1+) tricuspid valve insufficiency. Labs Triglycerides 98 mg/dL (-199) 06/19/20 Diagnostics Electrocardiogram 08/04/20 Echocardiogram 06/19/20 Chest X-Ray 06/19/20 Venous Doppler Study 06/20/20
[2020-08-29 08:38] VITALS: BMI 31.1
--- NOTE | 2020-08-30 13:19 | CARDIOVERS ---
Cardioversion Cardioversion: Elective DC cardioversion [70]-year-old [man]with a history of chronic persistent atrial flutter. He was brought to the cardiac catheterization lab in the postabsorptive nonsedated state. He was seen by Dr. [place] of the critical care division. Informed consent was obtained. Anterior posterior pads were applied. The patient was then administered 90 mg of intravenous propofol. 200 J of biphasic DC cardioversion energy were applied with prompt reversal to sinus rhythm. Patient tolerated the procedure well. Conclusion: Successful DC cardioversion from [atrial flutter] to sinus rhythm. Recommendations: Continue current anticoagulation. Reduce metoprolol to 50 mg twice a day. Continue amiodarone at 200 mg a day.
--- NOTE | 2020-08-30 14:10 | PCM.OP.PRO ---
Problem List (1) Acute combined systolic (congestive) and diastolic (congestive) heart failure Status: Acute (2) Atrial fibrillation with RVR Status: Acute (3) Non-ischemic cardiomyopathy Status: Acute Procedure Report Date of Procedure: 08/30/20 CONSCIOUS SEDATION REPORT BRIEF HISTORY OF PRESENT ILLNESS: The patient is a 70-year-old male who presented to [facility] for an elective outpatient cardioversion due to underlying atrial fibrillation. The patient reports no PO intake since midnight. The patient does not have a history of obstructive sleep apnea. The patient reports no history of smoking and COPD. The patient denies any recent constitutional symptoms such as fevers, chills, nausea or vomiting. The patient denies previous anesthetic complications. Patient's last known ejection fraction was 45%. Patient did take Eliquis on the day of testing. PHYSICAL EXAMINATION: VITAL SIGNS: Reviewed and were acceptable. GENERAL: The patient is a male, in no apparent distress, speaking in full sentences. HEENT: Normocephalic, atraumatic. Mucous membranes are moist and pink. Good mouth opening noted. Trachea is midline. Good neck mobility. MP II CHEST: S1, S2 irregularly irregular. No murmurs, rubs or gallops were noted. LUNGS: Clear to auscultation bilaterally without appreciable wheezes, rales or rhonchi. ABDOMEN: Soft, nontender, nondistended. Positive bowel sounds. EXTREMITIES: There is no clubbing, cyanosis or edema. ASA Class: II DESCRIPTION OF PROCEDURE: After confirmation of informed consent, the patient's anesthesia plan was reviewed in detail. Propofol was chosen. Risks and benefits were reviewed and the patient agreed to proceed. At 1:10 PM, the patient was given 40 mg of propofol. The patient required a total of 90 mg of propofol throughout the procedure to achieve appropriate sedation. The patient achieved an appropriate level of sedation and received 1 attempt synchronized cardioversion, at [address] Perkins at the bedside. This was successful in achieving normal sinus rhythm. The patient was monitored until 1:25 PM, at which time the patient reached their baseline mental status and function. The patient tolerated the procedure well. COMPLICATIONS: None ESTIMATED BLOOD LOSS: None RECOMMENDATIONS: Okay to recover in usual fashion. 9xxxx: Other Procedure See Report - [id number]
== END 2020-08-30 13:20 | disposition home or self-care (01) ==
LOC: CLSP 10:26
PROVIDERS: Nurse Practitioner Family; PCP Internal Medicine; Referring Provider Internal Medicine Cardiovascular Disease; Visit Provider Internal Medicine Cardiovascular Disease
DX: I48.3 Typical atrial flutter (principal); I48.91 Unspecified atrial fibrillation; I42.8 Other cardiomyopathies; I26.99 Other pulmonary embolism without acute cor pulmonale; Z79.02 Long term (current) use of antithrombotics/antiplatelets; Z79.899 Other long term (current) drug therapy
CPT/HCPCS: 36415; 80048; 85610; 92960; 93005; J7040

== ENCOUNTER → 2020-11-22 09:42 | Outpatient (CLI) | payer MEDICARE, OTHER, SELFPAY ==
[2020-11-13 09:01] VITALS: BMI 32.3
== END ==
PROVIDERS: PCP Internal Medicine; Referring Provider Nurse Practitioner Family; Visit Provider Nurse Practitioner Family
DX: I11.0 Hypertensive heart disease with heart failure (principal); I50.9 Heart failure, unspecified; I48.0 Paroxysmal atrial fibrillation; I26.99 Other pulmonary embolism without acute cor pulmonale; I42.8 Other cardiomyopathies
CPT/HCPCS: 93308; Q9957; A4216; C8924

== ENCOUNTER → 2020-12-21 07:35 | Outpatient (CLI) | payer MEDICARE, OTHER, SELFPAY ==
[2020-11-13 09:01] VITALS: BMI 32.3
[2020-12-21 08:53] LABS: Anion Gap 4 (5-15); BUN 16 mg/dL (7-18); BUN/Creat Ratio 12.4 RATIO (10-20); Calcium,Total 8.4 mg/dL (8.5-10.1); Chloride 107 mmol/L (98-107); Creatinine, Serum 1.29 mg/dL (0.70-1.30); EST Glomerular Filtration Rate 58 mL/min (>60); Est Glom Filt Rate - Afr Amer 70 mL/min (>60); Glucose 109 mg/dL (74-106); Potassium 3.7 mmol/L (3.5-5.1); Sodium Level 142 mmol/L (136-145)
== END ==
PROVIDERS: PCP Internal Medicine; Referring Provider Internal Medicine; Visit Provider Internal Medicine
DX: I10 Essential (primary) hypertension (principal)
CPT/HCPCS: 36415; 80048

== ENCOUNTER 2021-01-04 10:57 | Outpatient (RCR) | payer MEDICARE, OTHER, SELFPAY ==
[2020-12-27 07:59] VITALS: BMI 30.2
[2021-01-04] MEDS: COVID-19 VACC, MRNA(PFIZER)/PF 30 MCG/0.3 ML SYRINGE IM (07:29)
[2021-01-25] MEDS: COVID-19 VACC, MRNA(PFIZER)/PF 30 MCG/0.3 ML SYRINGE IM (07:09)
== END 2021-01-04 23:59 ==
LOC: IMMUN 10:57
PROVIDERS: PCP Internal Medicine; Visit Provider Family Medicine
DX: Z23 Encounter for immunization (principal)
CPT/HCPCS: 0001A; 0002A

== ENCOUNTER → 2021-01-24 08:48 | Outpatient (CLI) | payer MEDICARE, OTHER, SELFPAY ==
[2021-01-24 08:20] VITALS: BMI 29.9
[2021-01-24 12:48] LABS: Anion Gap 3 (5-15); BUN 24 mg/dL (7-18); Calcium,Total 8.9 mg/dL (8.5-10.1); Chloride 106 mmol/L (98-107); Creatinine, Serum 1.26 mg/dL (0.70-1.30); EST Glomerular Filtration Rate 60 mL/min (>60); Est Glom Filt Rate - Afr Amer 72 mL/min (>60); Glucose 112 mg/dL (74-106); Potassium 4.3 mmol/L (3.5-5.1); Sodium Level 140 mmol/L (136-145)
== END ==
PROVIDERS: PCP Internal Medicine; Referring Provider Internal Medicine; Visit Provider Internal Medicine
DX: I10 Essential (primary) hypertension (principal)
CPT/HCPCS: 36415; 80048

== ENCOUNTER → 2021-05-02 08:30 | Outpatient (CLI) | payer MEDICARE, OTHER, SELFPAY ==
[2021-05-02 08:11] VITALS: BMI 29.9
[2021-05-02 12:40] LABS: Anion Gap 4 (5-15); BUN 29 mg/dL (7-18); BUN/Creat Ratio 19.6 RATIO (10-20); Calcium,Total 9.1 mg/dL (8.5-10.1); Chloride 106 mmol/L (98-107); Creatinine, Serum 1.48 mg/dL (0.70-1.30); EST Glomerular Filtration Rate 50 mL/min (>60); Est Glom Filt Rate - Afr Amer 60 mL/min (>60); Glucose 136 mg/dL (74-106); Potassium 4.2 mmol/L (3.5-5.1); Sodium Level 139 mmol/L (136-145)
== END ==
PROVIDERS: PCP Internal Medicine; Referring Provider Physician Assistant; Visit Provider Physician Assistant
DX: I10 Essential (primary) hypertension (principal)
CPT/HCPCS: 36415; 80048

== ENCOUNTER 2021-06-11 09:40 | Day surgery (SDC) | payer MEDICARE, OTHER, SELFPAY ==
[2021-05-09 09:26] VITALS: BMI 30.2
--- NOTE | 2021-06-10 18:45 | PCM.HP.BLA ---
History and Physical Date of Admission: 06/11/21 HISTORY OF PRESENT ILLNESS 70 year old man presents with soft tissue masses x2 of scalp (right parietal scalp and left top of scalp at vertex) that have increased in size over the last several months. He denies fever. He denies trauma. He denies any drainage or recent infection. He noticed some alopecia developing over these masses which brings him in today for further evaluation and treatment. PAST MEDICAL HISTORY Acute combined systolic (congestive) and diastolic (congestive) heart failure Atrial fibrillation with RVR (06/19/20) Bilateral pleural effusion Bilateral pulmonary embolism (06/19/20) Deep vein blood clot of right lower extremity (06/19/20) GERD (gastroesophageal reflux disease) Head mass LLL community-acquired pneumonia (2014) Moderate left loculated pleural effusion (2014) Non-ischemic cardiomyopathy Pneumonia Right leg DVT PAST SURGICAL HISTORY cardioversion (08/30/20) esophageal dilatation thoracentesis (2014) ALLERGIES ragweed pollen Sulfa (Sulfonamide Antibiotics) MEDICATIONS omeprazole amiodarone metoprolol tartrate hydrochlorothiazide lisinopril apixaban FAMILY HISTORY Grandmother - Breast cancer Mother - Cancer, Uterine cancer, Hypertension Brother - Colon cancer Father - Heart disease Grandfather - Heart disease SOCIAL HISTORY Smoking Status: Never smoker alcohol intake: current alcohol intake frequency: holidays/special occasions only substance use type: does not use REVIEW OF SYSTEMS General - Denies fever, fatigue, and weight loss. Eyes - Denies glaucoma. He states he is starting to develop cataracts. ENT - Denies nasal congestion and sore throat. Endocrine - Denies excessive thirst and urination. Skin - Denies skin cancer. Has enlarging soft tissue masses right parietal scalp and left top of scalp at vertex. Musculoskeletal - Denies joint pain, weakness of muscles and joints, and arthritis. Has joint stiffness and back pain. Neuro - Denies headaches. Cardiovascular - Denies chest pain, fatigue, and shortness of breath with exertion. Psych - Denies anxiety and depression. Respiratory - Denies chronic cough and shortness of breath. Gastrointestinal - Denies nausea, vomiting, diarrhea, and constipation. Hematologic - Denies abnormal bruising and bleeding. Genitourinary - Denies hematuria and urinary frequency. PHYSICAL EXAMINATION General - Alert and Oriented. HEENT - PERRL. EOMI. Throat is clear. On the right parietal scalp is a soft tissue mass that measures 2.5 cm. No ulceration. There is some discomfort when the mass is bumped. There is some overlying alopecia. On the left top of scalp at vertex is a soft tissue mass that measures 8 mm. The mass is starting to erode through the skin. No clinical evidence of infection. There is some discomfort when the mass is bumped. No other suspicious lesions noted. Neck - Supple and nontender. No cervical adenopathy. No suspicious lesions noted. Chest wall - No suspicious lesions noted. Lungs - Clear to auscultation. Heart - Regular rate and rhythm. Abdomen - Soft and nondistended. Extremities - FROM. No axillary adenopathy. Radial pulses are palpable. No suspicious lesions noted. Neuro - CN II-XII grossly intact. Psych - Normal mood and affect. ASSESSMENT 1. 2.5 cm soft tissue mass right parietal scalp with some overlying alopecia. 2. 8 mm soft tissue mass left top of scalp at vertex with some overlying alopecia. PLAN Recommend excision of these soft tissue masses before they continue to enlarge and become infected. Will send the masses to Pathology for analysis to rule out carcinoma. Since the mass on the left top of scalp at vertex is starting to erode through the skin, primary closure may not be possible. Because of its location on the top of scalp at vertex, a local flap may be difficult as well. Skin grafting may be necessary. The mass on the right parietal scalp should be able to be closed primarily with a layered closure. If the mass is adherent to the overlying skin then more skin may be removed to minimize recurrence, at which time a skin graft may be necessary. A skin flap is also possible because of its location as the scalp is more mobile in this area. Surgery will be done under local anesthesia and IV sedation on an outpatient basis. Patient understands that if a skin graft is done, there will be no hair growth in the area of the graft. Also, during the healing process, the pressure from the mass and sometimes pressure from postoperative swelling can lead to continued alopecia in the area of the surgery. He voices understanding and wishes to proceed. Patient was informed of the risks and complications of the procedure including alternatives to surgery. These were discussed with the patient personally. Patient voices understanding and wishes to proceed. Some of the risks and complications were included in a form from the [employer]. We discussed the current risks associated with COVID-19. While it is understood that there is a community spread of COVID-19, the risk of emma COVID-19 while at [facility] ([facility]) is very low; however, the risk cannot be completely mitigated because of the community spread of the disease. We discussed in detail the risk of exposure to and/or potential harm posed by the COVID-19 virus with having a surgery/procedure at this time versus the risk of delaying the surgery/procedure. It is not possible to know either the risk of delaying the surgery or procedure or chance of getting an infection with perfect accuracy, but a joint decision was made to proceed at this time with the scheduled surgery/procedure as indicated on the consent form. Patient was notified that we will need to comply with any screening or testing [facility] wishes to perform or that surgery may be delayed for any positive results. Assessment & Plan Assessment/Plan (1) Head mass:
[2021-06-11] VITALS (7 sets, daily range): BP systolic 115–134; BP diastolic 69–83; PULSE 16–53; RESP 14–16; TEMP 36.4–36.9; O2SAT 97–99; BMI 30.3
[2021-06-11] MEDS: Lactated Ringers 1,000 ML 100 ML IV (10:21)
--- NOTE | 2021-06-11 11:30 | SOF_PTH ---
PATIENT: MARCY RODRIGUEZ LOC: [facility] – [place] U#:[id number] AGE/SX: 70/M ROOM: RE06/11/[address]: Dr. Francisco Skinner MD : [id number] BED: DIS: 06/11/2021 SPEC #: [id number] RECD: 06/11/21 13:27 STATUS: KAI REGuilherme #: [id number] LIZ: 06/11/21 11:[address]: Francisco Skinner DEPT: SURGICAL PATHOLOGY RECD BY: Beverly Kennedy ENTERED: 06/12/21 13:00 SP TYPE: SOFT TISS OTHR DR: Dr. Shaila Hernandez MD Tissues: A - Soft tissues, NOS B - Scalp, NOS Procedures: Surgery Specimen Level III HEADER OPERATION: Excision soft tissue mass right parietal scalp and left top PRE-OP DIAGNOSIS: Soft tissue mass at right parietal area and left top of scalp at vertex TISSUE SUBMITTED: A ? Right parietal soft tissue mass, B ? Left top of scalp at vertex soft tissue mass MICROSCOPIC DIAGNOSIS A. Soft tissue mass, right parietal region, excision: Trichilemmal cyst, pilar cyst. B. Soft tissue mass, left top of scalp, excision: Trichilemmal cyst, pilar cyst. AM:nohelia 06/13/2021 MICROSCOPIC DESCRIPTION Slides are reviewed. GROSS DESCRIPTION A - Received in fixative is one container labeled with the patient's name and designated right parietal soft tissue mass. The specimen consists of an ovoid fragment of light stringer-white soft tissue with adhered ellipse of light stringer skin. The specimen as a whole measures 2.2 x 1.6 x 1 cm. The specimen is sectioned and submitted in its entirety in two cassettes. B - Received in fixative is one container labeled with the patient's name and designated soft tissue mass left top of scalp. The specimen consists of a hair-bearing fragment of skin measuring 1.2 x 0.5 cm. Attached to this is a stringer-white, firm nodule measuring 1.2 cm in greatest dimension. The specimen is bisected and totally submitted in one cassette. / AM:nohelia 06/12/21 TC:1 CPT: 03011 x2
[2021-06-11] MEDS: Lidocaine 1% /Epi 1:100 (20ml) 20 ML Vial (12:42)
[2021-06-11] MEDS: Mupirocin Ointment 22gm Tube 1 APPLIC (12:56)
--- NOTE | 2021-06-11 13:16 | PCM.OPRPT ---
Problems Associated Problem List Diagnoses (1) Head mass: Report of Operation Date of Procedure: 06/11/21 Pre-Operative Diagnosis: 1. 2.5 cm soft tissue mass right parietal scalp with some overlying alopecia. 2. 8 mm soft tissue mass left top of scalp at vertex with some overlying alopecia. Post-Operative Diagnosis: Same. Surgery/Procedure Performed:: 1. Excision 2.5 cm soft tissue mass right parietal scalp with some overlying alopecia with 2.5 cm layered closure. 2. Excision 8 mm soft tissue mass left top of scalp at vertex with some overlying alopecia with 1.5 cm layered closure. Description of Surgical Findings:: 70 year old man presents with soft tissue masses x2 of scalp (right parietal scalp and left top of scalp at vertex) that have increased in size over the last several months. He denies fever. He denies trauma. He denies any drainage or recent infection. He noticed some alopecia developing over these masses which brings him in today for further evaluation and treatment. Patient was informed of the risks and complications of the procedure including alternatives to surgery. These were discussed with the patient personally. Patient voices understanding and wishes to proceed. Some of the risks and complications were included in a form from the [employer] [place] [employer]. Surgeon: Francisco Skinner business area manager: None Type of Anesthesia: Local MAC (xylocaine with epinephrine and IV sedation.) Specimen's removed: 1. Soft tissue mass right parietal scalp with some overlying alopecia to Pathology. 2. Soft tissue mass left top of scalp at vertex with some overlying alopecia to Pathology. Drains: None. Estimated Blood Loss (mL): 20. Description of Procedure: Patient was taken to OR in supine position and was given IV sedation. The scalp was prepped and draped in the usual fashion. Because of the location of these soft tissue masses on opposite sides of the scalp, will prep and drape the soft tissue masses separately. SCD's were placed for DVT prophylaxis. Perioperative antibiotics were given intravenously. The soft tissue masses right parietal scalp and left top of scalp at vertex were infiltrated with xylocaine and epinephrine. After waiting 5 minutes for the anesthetic to take effect, oblique elliptical incision was made over the soft tissue mass right parietal scalp. Dissection was carried down to the mass. it was well encapsulated. The mass extended down to the periosteum but was not adherent and not involved with the bone. After excision, the mass was sent to Pathology for analysis to rule out carcinoma. The wound was irrigated with saline. Hemostasis was obtained with electrocautery. I closed the right parietal scalp wound in a layered fashion with 4-0 Monocryl interrupted sutures for the deep subcutaneous tissue. 4-0 Monocryl interrupted sutures were used to approximate the deep dermis and subcutaneous tissue. The skin was approximated with 5-0 Monocryl simple interrupted sutures. The skin flaps showed good bleeding at the edges, and no further skin will be removed. Therefore can primarily close the wound in a layered fashion. The head was turned to get exposure to the soft tissue mass on the left top of scalp at vertex and prepped and draped in the usual fashion. An oblique elliptical incision was made over the soft tissue mass left top of scalp at vertex. Dissection was carried down to the mass. it was well encapsulated. The mass extended down to the periosteum but was not adherent and not involved with the bone. After excision, the mass was sent to Pathology for analysis to rule out carcinoma. The wound was irrigated with saline. Hemostasis was obtained with electrocautery. I closed the left top of scalp at vertex wound in a layered fashion with 4-0 Monocryl interrupted sutures for the deep subcutaneous tissue. 4-0 Monocryl interrupted sutures were used to approximate the deep dermis and subcutaneous tissue. The skin was approximated with 5-0 Monocryl simple interrupted sutures. The skin flaps showed good bleeding at the edges, and no further skin will be removed. Therefore can primarily close the wound in a layered fashion. Antibiotic ointment was then applied to the suture lines and to be done daily. Patient tolerated the procedure well and was sent to PACU in satisfactory condition. Patient will be sent home on antibiotics and pain medication. He will followup in a week for a wound check and for discussion of the pathology report. Grafts/Implants Used: None. Complications None. Admit VTE Documentation VTE Present on Admission: No VTE Mechan Device Prophylaxis: SCD's VTE Pharm Prophylaxis ordered?: No Addendum Addendum: Surgery Charges CPT - 92211 ICD-10 - R22.0 04982 R22.0
--- NOTE | 2021-06-11 13:21 | PCM.DC ---
Discharge Instructions Diet Discharge Diet: No restrictions Activity Discharge Activity: May Not Drive (if taking narcotics for pain.), May Shower (in two days.) and - (keep head elevated. no heavy lifting.) May shower in (days): 2 May resume sexual activity in: 10-14 days Weight Bearing Status: Weight bearing as tolerated Lifting Restrictions: 20 lbs. Keep extremity elevated above heart level: - (elevate head.) Dressing / Incision Call your doctor if your incision/area has: Continuous Slow Oozing, Sudden Increased Bleeding, Increased Pain/ Swelling, Increased Redness, Foul Smelling Discharge and Swelling at the incision site Call your doctor if you observe: Fever of 101 or Higher, Coldness, Increased Pain, Numbness or Tingling, Shortness of breath, Chest pain, Calf discomfort and Uncontrolled pain Suture Line Care: - (apply antibiotic ointment to suture lines daily.) Cleanse incision/area with: - (may get incisions wet in the shower in two days.) Follow Up Care Please Follow Up With: Francisco Skinner MD When: one week. call [phone] for appt. Test Results: Test results from this visit will be discussed in further detail at your follow-up appointment, if applicable. Discharge Plan Admission Primary Reason for Your Visit: excision scalp soft tissue masses. Attending Provider: Francisco Skinner Primary Care Provider: Shaila Hernandez Discharge Orders/Prescriptions Prescriptions: New clindamycin HCl [Cleocin HCl] 300 mg capsule 300 mg PO TID 5 Days Qty: 15 RF: 0 oxycodone-acetaminophen [Percocet] 5-325 mg tablet 1 tab PO Q6H PRN (Reason: pain (scale score 7-10)) 7 Days Qty: 28 RF: 0 Continued omeprazole 20 MG capsule 20 mg PO DAILY RF: 0 amiodarone 200 mg tablet 200 mg PO DAILY RF: 0 lisinopril 20 mg tablet 20 mg PO BID RF: 0 hydrochlorothiazide 25 mg tablet 12.5 mg PO QAM RF: 0 metoprolol tartrate 25 mg tablet 12.5 mg PO BID RF: 0 Eliquis 5 mg tablet 5 mg PO BID Qty: 60 RF: 0 Referrals / Follow Up: Shaila Hernandez MD [Primary Care Provider] - Disposition Disposition (needs filled in before D/C Order can be placed): Home, Self Care
== END 2021-06-11 14:30 | disposition home or self-care (01) ==
LOC: SDC 09:42 → AC 09:42
PROVIDERS: PCP Internal Medicine; Referring Provider Surgery; Visit Provider Surgery
PROC: (CPT 21014; principal; 2021-06-11 11:15)
DX: L72.12 Trichodermal cyst (principal); L72.11 Pilar cyst; L65.9 Nonscarring hair loss, unspecified; I11.0 Hypertensive heart disease with heart failure; I50.42 Chronic combined systolic (congestive) and diastolic (congestive) heart failure; I48.91 Unspecified atrial fibrillation; K21.9 Gastro-esophageal reflux disease without esophagitis; Z86.711 Personal history of pulmonary embolism; Z86.718 Personal history of other venous thrombosis and embolism; Z79.02 Long term (current) use of antithrombotics/antiplatelets; Z79.899 Other long term (current) drug therapy
CPT/HCPCS: 21014; 88304; 88305; J7120; J2405

== ENCOUNTER → 2021-07-25 10:01 | Outpatient (CLI) | payer MEDICARE, OTHER, SELFPAY ==
[2021-07-25 10:54] LABS: PSA,Total - Annual Screen 0.82 ng/mL (0.00-4.00)
== END ==
PROVIDERS: PCP Internal Medicine; Referring Provider Internal Medicine Hematology & Oncology; Visit Provider Internal Medicine Hematology & Oncology
DX: Z12.5 Encounter for screening for malignant neoplasm of prostate (principal)
CPT/HCPCS: 36415; 84153; G0103

== ENCOUNTER → 2021-08-01 08:52 | Outpatient (CLI) | payer MEDICARE, OTHER, SELFPAY ==
[2021-08-01 12:39] LABS: Absolute Lymphocyte Count 1.13 X10^3/uL (0.83-4.51); Absolute Neutrophil Count 3.2 X10^3/uL (2.0-7.7); Basophil# 0.04 X10^3/uL; Basophil% 0.8 % (0-1); Eosinophil# 0.29 X10^3/uL; Eosinophils% 5.7 % (0-5); Hematocrit 42.4 % (40-54); Lymphocyte # 1.13 X10^3/ul (0.83-4.51); Lymphocyte % 22.1 % (19-41); Mean Corpuscular Hgb 32.9 pg (27.0-32.0); Mean Corpuscular Volume 99.5 fL (80-94); Mean Platelet Vol. 10.2 fl (6.2-12.0); Monocyte# 0.47 X10^3/uL; Monocyte% 9.2 % (0-10); NRBC Flagged by Analyzer 0 % (0-5); Neutrophil # 3.17 X10^3/uL (2.7-7.7); Neutrophil % 61.8 % (47-70); Platelet Count 234 K/mm3 (150-450); RBC Distribution Width CV 13.3 % (11.6-14.6); RBC Distribution Width SD 49.2 fl (35.1-43.9); Red Blood Count 4.26 M/mm3 (4.6-6.2); White Blood Count 5.1 K/mm3 (4.4-11.0)
[2021-08-01 12:56] LABS: ALB/GLOB Ratio 0.8 RATIO (0.9-2.4); AST(SGOT) 24 U/L (15-37); Alanine Aminotransfer ALT/SGPT 39 U/L (16-61); Albumin, Serum 3.3 g/dL (3.2-5.0); Alkaline Phosphatase 51 U/L (45-117); Anion Gap 6 (5-15); BUN 22 mg/dL (7-18); BUN/Creat Ratio 17.1 RATIO (10-20); Calcium,Total 8.6 mg/dL (8.5-10.1); Chloride 108 mmol/L (98-107); Cholesterol 186 mg/dL (200); Creatinine, Serum 1.29 mg/dL (0.70-1.30); EST Glomerular Filtration Rate 58 mL/min (>60); Est Glom Filt Rate - Afr Amer 70 mL/min (>60); Glucose 118 mg/dL (74-106); High Density Lipoprotein 34 mg/dL; Protein, Total 7.3 g/dL (6.4-8.2); Sodium Level 141 mmol/L (136-145); Triglycerides 139 mg/dL; Very Low Density Lipoprotein 28 mg/dL (5-40)
== END ==
PROVIDERS: PCP Internal Medicine; Referring Provider Physician Assistant; Visit Provider Physician Assistant
DX: I48.0 Paroxysmal atrial fibrillation (principal); I11.0 Hypertensive heart disease with heart failure; I50.41 Acute combined systolic (congestive) and diastolic (congestive) heart failure; Z13.220 Encounter for screening for lipoid disorders; Z13.6 Encounter for screening for cardiovascular disorders
CPT/HCPCS: 36415; 80053; 80061; 85025

== ENCOUNTER → 2021-08-10 | Outpatient (CLI) | payer MEDICARE, OTHER, SELFPAY | END | disposition home or self-care (01) | LOC: LABSPEC 16:17 | PROVIDERS: PCP Internal Medicine; Referring Provider Internal Medicine; Visit Provider Internal Medicine | DX: U07.1 COVID-19 (principal) | CPT/HCPCS: 87635; U0005; U0003 ==

== ENCOUNTER 2021-08-13 13:52 | Outpatient (CLI) | payer MEDICARE, OTHER, SELFPAY ==
[2021-08-13 14:15] VITALS: BP 107/54; PULSE 81; RESP 16; TEMP 37.2; O2SAT 98; BMI 29.9
[2021-08-13 14:18] VITALS: BMI 29.9
[2021-08-13] MEDS: 0.9% Saline Lock 10 ML Syringe IV (14:20)
[2021-08-13 15:04] VITALS: BP 110/54; PULSE 77; RESP 16; TEMP 36.6; O2SAT 98
[2021-08-13 15:51] VITALS: BP 101/68; PULSE 83; RESP 16; TEMP 36.3; O2SAT 100
== END 2021-08-13 16:04 | disposition home or self-care (01) ==
LOC: MS3OUT 13:52 → MS3 13:53
PROVIDERS: PCP Internal Medicine; Referring Provider Nurse Practitioner Adult Health; Visit Provider Nurse Practitioner Adult Health
DX: Z23 Encounter for immunization (principal); U07.1 COVID-19
CPT/HCPCS: J7050; M0243; A4216; Q0240

== ENCOUNTER 2021-11-07 09:44 | Outpatient (CLI) | payer MEDICARE, OTHER, SELFPAY ==
[2021-11-07 13:13] LABS: Anion Gap 7 (5-15); BUN 21 mg/dL (7-18); BUN/Creat Ratio 16.9 RATIO (10-20); Calcium,Total 8.7 mg/dL (8.5-10.1); Chloride 105 mmol/L (98-107); Creatinine, Serum 1.24 mg/dL (0.70-1.30); EST Glomerular Filtration Rate 61 mL/min (>60); Est Glom Filt Rate - Afr Amer 73 mL/min (>60); Glucose 87 mg/dL (74-106); Potassium 4.4 mmol/L (3.5-5.1); Sodium Level 141 mmol/L (136-145)
== END 2021-11-07 23:59 | disposition short-term general hospital (02) ==
PROVIDERS: PCP Internal Medicine; Referring Provider Internal Medicine; Visit Provider Internal Medicine
DX: I10 Essential (primary) hypertension (principal)
CPT/HCPCS: 36415; 80048

== ENCOUNTER 2021-11-21 07:55 | Outpatient (CLI) | payer MEDICARE, OTHER, SELFPAY ==
--- NOTE | 2021-11-21 07:58 | ECHOD_ITS ---
Reason For Study: AFIB/FLUTTER Procedure This was a 2D Doppler, Color Flow transthoracic echocardiogram. Exam performed in department. Left Ventricle Normal LV size. The estimated ejection fraction is 57 %. Left ventricular systolic function is normal. Stage 2 diastolic dysfunction. No regional wall motion abnormalities noted. Right Ventricle Normal RV size. Normal systolic function. Atria The left atrium is moderately enlarged. Normal right atrium. Mitral Valve Normal mitral valve. Mild (1+) eccentric mitral valve insufficiency. Tricuspid Valve Normal tricuspid valve. Unable to estimate RV systolic pressure due to insufficient tricuspid regurgitant envelope. Aortic Valve Normal aortic valve. Trisinus/trileaflet aortic valve. Pulmonic Valve Normal pulmonic valve. Great Vessels Normal aortic root. The pulmonary artery is normal size. Normal inferior vena cava. Pericardium/Pleural No pericardial effusion. MMode/2D Measurements & Calculations LVIDd: 5.6 cm IVSd: 1.0 cm Ao root diam: 4.0 cm LVIDs: 3.2 cm LVPWd: 1.2 cm RVDd: 3.5 cm FS: 43.1 % LAV(MOD-bp): 98.9 ml LA A4 area: 28.4 cm2 LA dimension(2D): 3.9 cm LAV(MOD-bp) Indexed: 45.0 ml/m2 LAV(MOD-sp2): 98.5 ml LAV(MOD-sp4): 98.5 ml RA A4 area: 20.5 cm2 Time Measurements MV dec time: 0.25 sec Doppler Measurements & Calculations MV E max abdiaziz: 110.4 cm/sec Lat Peak E' Abdiaziz: 8.5 cm/sec Med Peak E' Abdiaziz: 7.6 cm/sec MV A max abdiaziz: 94.7 cm/sec E/E' lat: 13.1 E/E' med: 14.6 MV E/A: 1.2 Ao V2 max: 144.0 cm/sec LV V1 max: 107.4 cm/sec PA V2 max: 86.1 cm/sec Ao max P.3 mmHg LV V1 max P.6 mmHg ECHO/Echo Complete Interpretation Summary Normal LV size. The estimated ejection fraction is 57 %. Left ventricular systolic function is normal. Mild (1+) eccentric mitral valve insufficiency. Stage 2 diastolic dysfunction. Ordering Physician: Cricket Perkins Referring Physician: Shaila Hernandez Performed By: Merissa Schmitt, AZAM, RVT
== END 2021-11-21 23:59 | disposition short-term general hospital (02) ==
LOC: CVS 07:56
PROVIDERS: PCP Internal Medicine; Referring Provider Internal Medicine Cardiovascular Disease; Visit Provider Internal Medicine Cardiovascular Disease
DX: I26.99 Other pulmonary embolism without acute cor pulmonale (principal)
CPT/HCPCS: 93306

== ENCOUNTER → 2022-04-05 | Outpatient (CLI) | payer MEDICARE, OTHER, SELFPAY ==
[2022-04-05 12:00] LABS: Absolute Lymphocyte Count 1.23 X10^3/uL (0.83-4.51); Absolute Neutrophil Count 3.2 X10^3/uL (2.0-7.7); Basophil# 0.04 X10^3/uL; Basophil% 0.8 % (0-1); Eosinophil# 0.18 X10^3/uL; Eosinophils% 3.5 % (0-5); Hematocrit 42.3 % (40-54); Hemoglobin 14.4 g/dL (13.0-16.5); Lymphocyte # 1.23 X10^3/ul (0.83-4.51); Lymphocyte % 23.8 % (19-41); Mean Corpuscular Hgb 32.5 pg (27.0-32.0); Mean Corpuscular Volume 95.5 fL (80-94); Mean Platelet Vol. 10.1 fl (6.2-12.0); Monocyte# 0.53 X10^3/uL; Monocyte% 10.3 % (0-10); NRBC Flagged by Analyzer 0 % (0-5); Neutrophil # 3.17 X10^3/uL (2.7-7.7); Neutrophil % 61.2 % (47-70); Platelet Count 226 K/mm3 (150-450); RBC Distribution Width CV 13.4 % (11.6-14.6); RBC Distribution Width SD 47.4 fl (35.1-43.9); Red Blood Count 4.43 M/mm3 (4.6-6.2); White Blood Count 5.2 K/mm3 (4.4-11.0)
[2022-04-05 12:12] LABS: Anion Gap 6 (5-15); BUN 40 mg/dL (7-18); BUN/Creat Ratio 23.7 RATIO (10-20); Calcium,Total 8.7 mg/dL (8.5-10.1); Chloride 107 mmol/L (98-107); Creatinine, Serum 1.69 mg/dL (0.70-1.30); EST Glomerular Filtration Rate 42 mL/min (>60); Est Glom Filt Rate - Afr Amer 51 mL/min (>60); Glucose 128 mg/dL (74-106); Potassium 4.3 mmol/L (3.5-5.1); Sodium Level 138 mmol/L (136-145)
== END | disposition home or self-care (01) ==
LOC: BIMLAB 09:08
PROVIDERS: PCP Internal Medicine; Referring Provider Internal Medicine; Visit Provider Internal Medicine
DX: I10 Essential (primary) hypertension (principal)
CPT/HCPCS: 36415; 80048; 85025

== ENCOUNTER 2022-06-03 06:27 | Outpatient (CLI) | payer MEDICARE, OTHER, SELFPAY ==
--- NOTE | 2022-06-03 19:29 | STRESSREP ---
Stress Test Report Exercise myocardial perfusion stress test. 71-year-old male with a history of atrial fibrillation. Resting EKG demonstrates normal sinus rhythm with a rate of 60 bpm resting blood pressure is 150/74 mmHg. The patient exercised according to regular Luis F protocol for total duration of 9 minutes and 46 seconds completing 46 seconds into stage IV of the Luis F protocol. The maximum heart rate attained was 131 bpm which was 89% of max impacted heart rate the maximum workload was 12.5 metabolic equivalents. The patient maintained sinus rhythm throughout the recording with no atrial fibrillation noted. The peak blood pressure was 222/58 mmHg. Myocardial perfusion protocol. 13.8 mCi of technetium 99m sestamibi was injected at rest. The patient exercised according to regular Luis F protocol for total duration of 9 minutes and 45 seconds and at peak exercise 45.0 mCi of technetium 99m sestamibi was injected stress images were obtained stress and rest images were reconstructed and compared in the short axis vertical long and horizontal long axis. Gated images were also obtained to Perfusion SPECT analysis: Review of the stress images demonstrate normal uptake of tracer noted in all areas of the myocardium. The resting images similar demonstrate normal uptake of tracer noted in all areas of the myocardium. No areas of reversibility are noted suggest ischemia and no previous infarct is noted. Gated SPECT analysis: The gated ejection fraction is 67%. Conclusion: Normal exercise myocardial perfusion stress test at a high workload. Preserved ejection fraction. No atrial fibrillation noted during exercise.
== END 2022-06-03 23:59 | disposition home or self-care (01) ==
LOC: CVS 06:30
PROVIDERS: PCP Internal Medicine; Referring Provider Physician Assistant Medical; Visit Provider Physician Assistant Medical
DX: R94.31 Abnormal electrocardiogram [ECG] [EKG] (principal); I48.0 Paroxysmal atrial fibrillation
CPT/HCPCS: 78452; 93017; A9500; A4216

== ENCOUNTER → 2023-05-12 | Outpatient (CLI) | payer MEDICARE, OTHER, SELFPAY ==
[2023-05-12 12:35] LABS: Absolute Lymphocyte Count 1.16 X10^3/uL (0.83-4.51); Absolute Neutrophil Count 4.5 X10^3/uL (2.0-7.7); Basophil# 0.03 X10^3/uL; Basophil% 0.5 % (0-1); Eosinophil# 0.19 X10^3/uL; Hematocrit 45.6 % (40-54); Hemoglobin 15.1 g/dL (13.0-16.5); Lymphocyte # 1.16 X10^3/ul (0.83-4.51); Lymphocyte % 18.1 % (19-41); Mean Corp Hgb Conc 33.1 g/dL (32-36); Mean Corpuscular Hgb 32.3 pg (27.0-32.0); Mean Corpuscular Volume 97.6 fL (80-94); Mean Platelet Vol. 9.9 fl (6.2-12.0); Monocyte# 0.47 X10^3/uL; Monocyte% 7.3 % (0-10); NRBC Flagged by Analyzer 0 % (0-5); Neutrophil # 4.54 X10^3/uL (2.7-7.7); Neutrophil % 70.8 % (47-70); Platelet Count 246 K/mm3 (150-450); RBC Distribution Width CV 13.3 % (11.6-14.6); RBC Distribution Width SD 48.1 fl (35.1-43.9); Red Blood Count 4.67 M/mm3 (4.6-6.2); White Blood Count 6.4 K/mm3 (4.4-11.0)
[2023-05-12 13:20] LABS: ALB/GLOB Ratio 0.9 RATIO (0.9-2.4); AST(SGOT) 21 U/L (15-37); Alanine Aminotransfer ALT/SGPT 36 U/L (16-61); Albumin, Serum 3.6 g/dL (3.2-5.0); Alkaline Phosphatase 59 U/L (45-117); Anion Gap 4 (5-15); BUN 19 mg/dL (7-18); BUN/Creat Ratio 15.7 RATIO (10-20); Chloride 109 mmol/L (98-107); Cholesterol 166 mg/dL (200); Creatinine, Serum 1.21 mg/dL (0.70-1.30); EST Glomerular Filtration Rate 62 mL/min (>60); Est Glom Filt Rate - Afr Amer 75 mL/min (>60); Globulin 3.9 g/dL (2.2-4.2); Glucose 89 mg/dL (74-106); High Density Lipoprotein 40 mg/dL; Potassium 4.2 mmol/L (3.5-5.1); Protein, Total 7.5 g/dL (6.4-8.2); Sodium Level 140 mmol/L (136-145); Triglycerides 105 mg/dL; Very Low Density Lipoprotein 21 mg/dL (5-40)
== END | disposition home or self-care (01) ==
LOC: BIMLAB 09:32
PROVIDERS: PCP Internal Medicine; Referring Provider Internal Medicine; Visit Provider Internal Medicine
DX: I10 Essential (primary) hypertension (principal)
CPT/HCPCS: 36415; 80053; 80061; 85025

== ENCOUNTER → 2023-11-14 | Outpatient (CLI) | payer MEDICARE, OTHER, SELFPAY ==
--- OUTSIDE RECORDS SUMMARY | 2023-11-14 08:57 | XMS RPT_ITS | CCD ---
Author Name Unknown Address [address] [place] [address] Organization [facility] Care Team Providers Care Sales Representative Education Courses Name Role Phone EMILIE SERVIN MD Primary Care Physician [phone] JAVIER KNOX Attending EMILIE Williamson MD Primary Care UnavailJAVIER Mathur Admitting Unavailable SACHA DOWNS, JAZ Consulting Maryellen AMBRIZ MD, EDD Smith Consulting Maryellen ESPANA MD, CARINE Consulting Maryellen TURNER MD., DR. NERIS Holden Consulting Unavailabl JAVIER Lacey Consulting Unavailable VASILE DOWNS, DR SATISH Smith Attending EMILIE Pulliam MD Primary Care Unavailab JAVIER Marr Attending Unavailable EMILIE SERVIN MD Primary Care Unavailab JAVIER Marr Admitting Unavailable SALEEM MAYNARD MD Consulting Unavailable JAVIER KNOX Consulting Maryellen JANSEN MD, MAYELIN Consulting Unavailable JAVIER KNOX Attending Unavailable EMILIE SERVIN MD Primary Care UnavailJAVIER Mathur Attending Unavailable EMILIE SERVIN MD Primary Care Unavailab Olivia DOWNS, MAYELIN Consulting Unavailable JAVIER KNOX Attending EMILIE Williamson MD Primary Care Unavailab Olivia DOWNS, MAYELIN Consulting Unavailable VASILE DOWNS, DR SATISH Smith Attending EMILIE Pulliam MD Primary Care Unavailab Olivia DOWNS, MAYELIN Consulting Unavailable Allergies Allergy Classification Reported Allergen(s) Allergy Type Date of Onset Reaction(s) Facility (7 sources) Sulfonamides (Antibiotic); Translations: [sulfa drugs] Drug allergy Unknown (qualifier value) [facility] (7 sources) Ragweed Allergy to substance Unknown (qualifier value) [facility] Medications Current Medications Medication Drug Class(es) Dates Sig (Normalized) Sig (Original) apixaban 5 mg oral tablet (7 sources) Factor Xa Inhibitor Start: 08-07-2022 Eliquis 5 mg oral tablet Dose : 5 mg = 1 tab(s), Oral, BID, 0 Refill(s) Start Date: 08/07/22 Status: Ordered flecainide acetate 100 mg oral tablet (1 source) Antiarrhythmic Start: 08-14-2022 End: 09-13-2022 flecainide 100 mg oral tablet Dose : 100 mg = 1 tab(s), Oral, q12h, # 60 tab(s), 0 Refill(s), other reason (Rx) Start Date: 08/14/22 Stop Date: 09/13/22 Status: Ordered lisinopril 20 mg oral tablet (7 sources) Angiotensin Converting Enzyme Inhibitor Start: 08-07-2022 lisinopril 20 mg oral tablet Dose : 20 mg = 1 tab(s), Oral, BID, 0 Refill(s) Start Date: 08/07/22 Status: Ordered omeprazole 20 mg delayed release oral tablet (7 sources) Proton Pump Inhibitor Start: 08-07-2022 omeprazole 20 mg oral delayed release tablet Dose : 20 mg = 1 tab(s), Oral, qDay, 0 Refill(s) Start Date: 08/07/22 Status: Ordered sotalol hydrochloride 80 mg oral tablet (6 sources) Antiarrhythmic Start: 10-09-2022 sotalol 80 mg oral tablet Dose : 80 mg = 1 tab(s), Oral, BID, # 60 tab(s), 0 Refill(s) Start Date: 10/09/22 Status: Ordered Completed/Discontinued Medications Medication Drug Class(es) Dates Sig (Normalized) Sig (Original) Metoprolol (1 source) beta-Adrenergic Alexy Start: 09-14-2022 End: 09-14-2022 metoprolol tartrate (Lopressor) Start: 09/14/22 13:00:00 EST, Dose = 50 mg, = 1 tab(s), Oral, Stop: 09/14/22 13:00:00 EST, 0, 09/14/22 11:33:00 EST Start Date: 09/14/22 Stop Date: 09/14/22 Status: Completed Problems Problem Classification Problem Date Documented Da te Episodic/Chronic Cardiac dysrhythmias (15 sources) Atrial flutter; Translations: [Unspecified atrial fibrillation] Onset: 09-13-2022 08-19-2022 Chronic Residual codes; unclassified (6 sources) Increased body mass index 09-12-2022 Episodic Results Test Name Value Interpretation Reference Range Facil ity Vital Signs Date Time Vital Sign Value Performing Clinician Ramirez [email or web address] 10-24-2022 09:00-0500 Heart rate 70 /min JAVIER NKOX MD [address] [place] [address] 10-24-2022 08:17-0500 Body temperature 98.42 [degF] JAVIER KNOX MD [address] [place] [address] 10-24-2022 08:17-0500 Diastolic Blood Pressure Non-Invasive 52 1 JAVIER KNOX MD [address] [place] [address] 10-24-2022 08:17-0500 Heart rate 73 /min JAVIER KNOX MD [address] [place] [address] 10-24-2022 08:17-0500 Respiratory rate 18 /min JAVIER KNOX MD [address] [place] [address] 10-24-2022 08:17-0500 Systolic Blood Pressure Non-Invasive 115 1 JAVIER KNOX MD [address] [place] [address] 10-24-2022 04:00-0500 Heart rate 68 /min JAVIER KNOX MD [address] [place] [address] 10-24-2022 00:50-0500 Body temperature 98.24 [degF] JAVIER KNOX MD [address] [place] [address] 10-24-2022 00:50-0500 Diastolic Blood Pressure Non-Invasive 70 1 JAVIER KNOX MD [address] [place] [address] 10-24-2022 00:50-0500 Reason For Taking VItal Signs JAVIER KNOX MD [address] [place] [address] 10-24-2022 00:50-0500 Respiratory rate 16 /min JAVIER KNOX MD [address] [place] [address] 10-24-2022 00:50-0500 Systolic Blood Pressure Non-Invasive 123 1 JAVIER KNOX MD [address] [place] [address] 10-23-2022 22:26-0500 Respiratory rate 14 /min JAVIER KNOX MD [address] [place] [address] 10-23-2022 20:06-0500 Body temperature 98.78 [degF] JAVIER KNOX MD [address] [place] [address] 10-23-2022 20:06-0500 Reason For Taking VItal Signs JAVIER KNOX MD [address] [place] [address] 10-23-2022 19:44-0500 Diastolic Blood Pressure Non-Invasive 72 1 JAVIER KNOX MD [address] [place] [address] 10-23-2022 19:44-0500 Systolic Blood Pressure Non-Invasive 126 1 JAVIER KNOX MD [address] [place] [address] 10-23-2022 14:10-0500 Body temperature 97.16 [degF] JAVIER KNOX MD [address] [place] [address] 10-23-2022 14:10-0500 Respiratory Rate - Anes 0 br/min JAVIER KNOX MD [address] [place] [address] 10-23-2022 14:05-0500 Respiratory Rate - Anes 0 br/min JAVIER KNOX MD [address] [place] [address] 10-23-2022 13:40-0500 Body temperature 97.59 [degF] JAVIER KNOX MD [address] [place] [address] 10-23-2022 13:35-0500 Body temperature 97.93 [degF] JAVIER KNOX MD [address] [place] [address] 10-23-2022 13:30-0500 Body temperature 97.77 [degF] JAVIER KNOX MD [address] [place] [address] 10-23-2022 09:38-0500 Blood Pressure Cuff Size JAVIER KNOX MD [address] [place] [address] 10-23-2022 09:38-0500 Blood Pressure Location JAVIER KNOX MD [address] [place] [address] 10-23-2022 09:38-0500 Blood Pressure Method JAVIER KNOX MD [address] [place] [address] 10-23-2022 09:38-0500 Body height 91 cm JAVIER KNOX MD [address] [place] [address] 10-23-2022 09:38-0500 Body weight 180.3 kg JAVIER KNOX MD [address] [place] [address] 10-23-2022 09:38-0500 Heart rate 130 /min JAVIER KNOX MD [address] [place] [address] 10-16-2022 10:40-0500 Diastolic Blood Pressure Non-Invasive 78 1 JAVIER KNOX MD [address] [place] [address] 10-16-2022 10:40-0500 Heart rate 97 /min JAVIER KNOX MD [address] [place] [address] 10-16-2022 10:40-0500 Respiratory rate 16 /min JAVIER KNOX MD [address] [place] [address] 10-16-2022 10:40-0500 Systolic Blood Pressure Non-Invasive 115 1 JAVIER KNOX MD [address] [place] [address] 10-16-2022 10:26-0500 Diastolic Blood Pressure Non-Invasive 73 1 JAVIER KNOX MD [address] [place] [address] 10-16-2022 10:26-0500 Heart rate 101 /min JAVIER KNOX MD [address] [place] [address] 10-16-2022 10:26-0500 Respiratory rate 18 /min JAVIER KNOX MD [address] [place] [address] 10-16-2022 10:26-0500 Systolic Blood Pressure Non-Invasive 112 1 JAVIER KNOX MD [address] [place] [address] 10-16-2022 10:21-0500 Body temperature 97.52 [degF] JAVIER KNOX MD [address] [place] [address] 10-16-2022 10:21-0500 Diastolic Blood Pressure Non-Invasive 38 1 JAVIER KNOX MD [address] [place] [address] 10-16-2022 10:21-0500 Heart rate 100 /min JAVIER KNOX MD [address] [place] [address] 10-16-2022 10:21-0500 Respiratory rate 18 /min JAVIER KNOX MD [address] [place] [address] 10-16-2022 10:21-0500 Systolic Blood Pressure Non-Invasive 96 1 JAVIER KNOX MD [address] [place] [address] 10-16-2022 08:02-0500 Blood Pressure Cuff Size JAVIER KNOX MD [address] [place] [address] 10-16-2022 08:02-0500 Blood Pressure Method JAVIER KNOX MD [address] [place] [address] 10-16-2022 08:02-0500 Body height 180.3 cm JAVIER KNOX MD [address] [place] [address] 10-16-2022 08:02-0500 Body temperature 98.06 [degF] JAVIER KNOX MD [address] [place] [address] 10-16-2022 08:02-0500 Body weight 91.4 kg JAVIER KNOX MD [address] [place] [address] 10-16-2022 08:02-0500 Body weight 28.12 kg/m2 JAVIER KNOX MD [address] [place] [address] 10-16-2022 08:02-0500 Heart rate 110 /min JAVIER KNOX MD [address] [place] [address] 09-20-2022 09:25-0500 Diastolic Blood Pressure Non-Invasive 78 1 JAVIER KNOX MD [address] [place] [address] 09-20-2022 09:25-0500 Heart rate 75 /min JAVIER KNOX MD [address] [place] [address] 09-20-2022 09:25-0500 Respiratory rate 18 /min JAVIER KNOX MD [address] [place] [address] 09-20-2022 09:25-0500 Systolic Blood Pressure Non-Invasive 130 1 JAVIER KNOX MD [address] [place] [address] 09-20-2022 09:10-0500 Diastolic Blood Pressure Non-Invasive 82 1 JAVIER KNOX MD [address] [place] [address] 09-20-2022 09:10-0500 Heart rate 87 /min JAVIER KNOX MD [address] [place] [address] 09-20-2022 09:10-0500 Systolic Blood Pressure Non-Invasive 132 1 JAVIER KNOX MD [address] [place] [address] 09-20-2022 09:08-0500 Body temperature 97.7 [degF] JAVIER KNOX MD [address] [place] [address] 09-20-2022 09:08-0500 Diastolic Blood Pressure Non-Invasive 94 1 JAVIER KNOX MD [address] [place] [address] 09-20-2022 09:08-0500 Heart rate 113 /min JAVIER KNOX MD [address] [place] [address] 09-20-2022 09:08-0500 Respiratory rate 18 /min JAVIER KNOX MD [address] [place] [address] 09-20-2022 09:08-0500 Systolic Blood Pressure Non-Invasive 142 1 JAVIER KNOX MD [address] [place] [address] 09-20-2022 09:05-0500 Heart rate 108 /min JVAIER KNOX MD [address] [place] [address] 09-20-2022 09:00-0500 Heart rate 100 /min JAVIER KNOX MD [address] [place] [address] 09-20-2022 07:25-0500 Body height 180.3 cm JAVIER KNOX MD [address] [place] [address] 09-20-2022 07:25-0500 Body temperature 98.06 [degF] JAVIER KNOX MD [address] [place] [address] 09-20-2022 07:25-0500 Body weight 92.6 kg JAVIER KNOX MD [address] [place] [address] 09-20-2022 07:25-0500 Body weight 28.49 kg/m2 JAVIER KNOX MD [address] [place] [address] 09-20-2022 07:25-0500 diastolic 82 mm[Hg] JAVIER KNOX MD [address] [place] [address] 09-20-2022 07:25-0500 Heart rate 103 /min JAVIER KNOX MD [address] [place] [address] 09-20-2022 07:25-0500 Respiratory rate 18 /min JAVIER KNOX MD [address] [place] [address] 09-20-2022 07:25-0500 systolic 133 mm[Hg] JAVIER KNOX MD [address] [place] [address] 09-17-2022 10:01-0500 Diastolic Blood Pressure Non-Invasive 72 1 JAVIER KNOX MD [address] [place] [address] 09-17-2022 10:01-0500 Heart rate 92 /min JAVIER KNOX MD [address] [place] [address] 09-17-2022 10:01-0500 Mean blood pressure 84 mm[Hg] JAVIER KNOX MD [address] [place] [address] 09-17-2022 10:01-0500 Respiratory rate 18 /min JAVIER KNOX MD [address] [place] [address] 09-17-2022 10:01-0500 Systolic Blood Pressure Non-Invasive 108 1 JAVIER KNOX MD [address] [place] [address] 09-17-2022 09:52-0500 Diastolic Blood Pressure Non-Invasive 68 1 JAVIER KNOX MD [address] [place] [address] 09-17-2022 09:52-0500 Heart rate 113 /min JAVIER KNOX MD [address] [place] [address] 09-17-2022 09:52-0500 Respiratory rate 18 /min JAVIER KNOX MD [address] [place] [address] 09-17-2022 09:52-0500 Systolic Blood Pressure Non-Invasive 135 1 JAVIER KNOX MD [address] [place] [address] 09-17-2022 09:48-0500 Body temperature 96.8 [degF] JAVIER KNOX MD [address] [place] [address] 09-17-2022 09:48-0500 Diastolic Blood Pressure Non-Invasive 109 1 JAVIER KNOX MD [address] [place] [address] 09-17-2022 09:48-0500 Heart rate 100 /min JAVIER KNOX MD [address] [place] [address] 09-17-2022 09:48-0500 Respiratory rate 18 /min JAVIER KNOX MD [address] [place] [address] 09-17-2022 09:48-0500 Systolic Blood Pressure Non-Invasive 135 1 JAVIER KNOX MD [address] [place] [address] 09-17-2022 09:45-0500 Heart rate 110 /min AJVIER KNOX MD [address] [place] [address] 09-17-2022 07:56-0500 Body height 180.3 cm JAVIER KNOX MD [address] [place] [address] 09-17-2022 07:56-0500 Body temperature 98.06 [degF] JAVIER KNOX MD [address] [place] [address] 09-17-2022 07:56-0500 Body weight 93.3 kg JAVIER KNOX MD [address] [place] [address] 09-17-2022 07:56-0500 Body weight 28.7 kg/m2 JAVIER KNOX MD [address] [place] [address] 09-17-2022 07:56-0500 diastolic 77 mm[Hg] JAVIER KNOX MD [address] [place] [address] 09-17-2022 07:56-0500 Heart rate 91 /min JAVIER KNOX MD [address] [place] [address] 09-17-2022 07:56-0500 systolic 127 mm[Hg] JAVIER KNOX MD [address] [place] [address] 09-15-2022 10:58-0500 Heart rate 87 /min JAVIER KNOX MD [address] [place] [address] 09-15-2022 10:58-0500 Reason For Taking VItal Signs JAVIER KNOX MD [address] [place] [address] 09-15-2022 10:58-0500 Respiratory rate 18 /min JAVIER KNOX MD [address] [place] [address] 09-15-2022 10:35-0500 Blood Pressure Method JAVIER KNOX MD [address] [place] [address] 09-15-2022 10:35-0500 Body temperature 98.06 [degF] JAVIER KNOX MD [address] [place] [address] 09-15-2022 10:35-0500 Diastolic Blood Pressure Non-Invasive 56 1 JAVIER KNOX MD [address] [place] [address] 09-15-2022 10:35-0500 Heart rate 93 /min JAVIER KNOX MD [address] [place] [address] 09-15-2022 10:35-0500 Reason For Taking VItal Signs JAVIER KNOX MD [address] [place] [address] 09-15-2022 10:35-0500 Respiratory rate 16 /min JAVIER KNOX MD [address] [place] [address] 09-15-2022 10:35-0500 Systolic Blood Pressure Non-Invasive 114 1 JAVIER KNOX MD [address] [place] [address] 09-15-2022 07:11-0500 Body temperature 98.42 [degF] JAVIER KNOX MD [address] [place] [address] 09-15-2022 07:11-0500 Diastolic Blood Pressure Non-Invasive 74 1 JAVIER KNOX MD [address] [place] [address] 09-15-2022 07:11-0500 Heart rate 94 /min JAVIER KNOX MD [address] [place] [address] 09-15-2022 07:11-0500 Reason For Taking VItal Signs JAVIER KNOX MD [address] [place] [address] 09-15-2022 07:11-0500 Respiratory rate 16 /min JAVIER KNOX MD [address] [place] [address] 09-15-2022 07:11-0500 Systolic Blood Pressure Non-Invasive 112 1 JAVIER KNOX MD [address] [place] [address] 09-15-2022 05:32-0500 Body temperature 98.78 [degF] JAVIER KNOX MD [address] [place] [address] 09-15-2022 05:32-0500 Diastolic Blood Pressure Non-Invasive 85 1 JAVIER KNOX MD [address] [place] [address] 09-15-2022 05:32-0500 Systolic Blood Pressure Non-Invasive 139 1 JAVIER KNOX MD [address] [place] [address] 09-14-2022 18:40-0500 Mean blood pressure 74 mm[Hg] JAVIER KNOX MD [address] [place] [address] 09-14-2022 13:44-0500 Heart rate 132 /min JAVIER KNOX MD [address] [place] [address] 09-14-2022 13:43-0500 Mean blood pressure 89 mm[Hg] JAVIER KNOX MD [address] [place] [address] 09-14-2022 09:14-0500 Mean blood pressure 89 mm[Hg] JAVIER KNOX MD [address] [place] [address] 09-13-2022 18:32-0500 Body height 180 cm JAVIER KNOX MD [address] [place] [address] 09-13-2022 18:32-0500 Body weight 92.8 kg JAVIER KNOX MD [address] [place] [address] 09-13-2022 18:32-0500 Body weight 28.64 kg/m2 JAVIER KNOX MD [address] [place] [address] 09-13-2022 17:30-0500 Respiratory Rate - Anes 0 br/min JAVIER KNOX MD [address] [place] [address] 09-13-2022 17:25-0500 Respiratory Rate - Anes 8 br/min JAVIER KNOX MD [address] [place] [address] 09-13-2022 17:20-0500 Respiratory Rate - Anes 14 br/min JAVIER KNOX MD [address] [place] [address] 09-13-2022 17:00-0500 Body temperature 99.3 [degF] JAVIER KNOX MD [address] [place] [address] 09-13-2022 16:55-0500 Body temperature 99.32 [degF] JAVIER KNOX MD [address] [place] [address] 09-13-2022 16:50-0500 Body temperature 99.39 [degF] JAVIER KNOX MD [address] [place] [address] 09-13-2022 08:29-0500 Body height 180 cm JAVIER KNOX MD [address] [place] [address] 09-13-2022 08:29-0500 Body weight 92.8 kg JAVIER KNOX MD [address] [place] [address] 09-13-2022 08:29-0500 Body weight 28.64 kg/m2 JAVIER KNOX MD [address] [place] [address] 09-13-2022 08:29-0500 diastolic 69 mm[Hg] JAVIER KNOX MD [address] [place] [address] 09-13-2022 08:29-0500 Heart rate 98 /min JAVIER KNOX MD [address] [place] [address] 09-13-2022 08:29-0500 systolic 124 mm[Hg] JAVIER KNOX MD [address] [place] [address] 08-20-2022 09:53-0400 Body temperature 96.8 [degF] DR SATISH BURNETTE MD [address] [place] [address] 08-20-2022 09:53-0400 Diastolic blood pressure 82 mm[Hg] DR SATISH BURNETTE MD [address] [place] [address] 08-20-2022 09:53-0400 Heart rate 80 /min DR SATISH BURNETTE MD [address] [place] [address] 08-20-2022 09:53-0400 Mean blood pressure 95 mm[Hg] DR SATISH BURNETTE MD [address] [place] [address] 08-20-2022 09:53-0400 Respiratory rate 18 /min DR SATISH BURNETTE MD [address] [place] [address] 08-20-2022 09:53-0400 Systolic blood pressure 120 mm[Hg] DR SATISH BURNETTE MD [address] [place] [address] 08-20-2022 09:16-0400 Body temperature 97.16 [degF] DR SATISH BURNETTE MD [address] [place] [address] 08-20-2022 09:16-0400 Diastolic blood pressure 73 mm[Hg] DR SATISH BURNETTE MD [address] [place] [address] 08-20-2022 09:16-0400 Heart rate 84 /min DR SATISH BURNETTE MD [address] [place] [address] 08-20-2022 09:16-0400 Mean blood pressure 88 mm[Hg] DR SATISH BURNETTE MD [address] [place] [address] 08-20-2022 09:16-0400 Reason For Taking VItal Signs DR SATISH BURNETTE MD [address] [place] [address] 08-20-2022 09:16-0400 Respiratory rate 16 /min DR SATISH BURNETTE MD [address] [place] [address] 08-20-2022 09:16-0400 Systolic blood pressure 117 mm[Hg] DR SATISH BURNETTE MD [address] [place] [address] 08-20-2022 08:56-0400 Diastolic Blood Pressure NBP [address] SATISH BURNETTE MD [address] [place] [address] 08-20-2022 08:56-0400 Heart rate 86 /min DR SATISH BURNETTE MD [address] [place] [address] 08-20-2022 08:56-0400 Respiratory rate 18 /min DR SATISH BURNETTE MD [address] [place] [address] 08-20-2022 08:56-0400 Systolic Blood Pressure NBP [address] SATISH BURNETTE MD [address] [place] [address] 08-20-2022 08:51-0400 Body temperature 97.52 [degF] DR SATISH UBRNETTE MD [address] [place] [address] 08-20-2022 08:51-0400 Diastolic Blood Pressure NBP [address] SATISH BURNETTE MD [address] [place] [address] 08-20-2022 08:51-0400 Heart rate 83 /min DR SATISH BURNETTE MD [address] [place] [address] 08-20-2022 08:51-0400 Systolic Blood Pressure NBP [address] SATISH BURNETTE MD [address] [place] [address] 08-20-2022 08:49-0400 Diastolic Blood Pressure NBP [address] SATISH BURNETTE MD [address] [place] [address] 08-20-2022 08:49-0400 Systolic Blood Pressure NBP [address] SATISH BURNETTE MD [address] [place] [address] 08-20-2022 08:25-0400 diastolic 75 mm[Hg] DR SATISH BURNETTE MD [address] [place] [address] 08-20-2022 08:25-0400 systolic 152 mm[Hg] DR SATISH BURNETTE MD [address] [place] [address] 08-20-2022 06:40-0400 Body height 180.[address] SATISH BURNETTE MD [address] [place] [address] 08-20-2022 06:40-0400 Body temperature 99.5 [degF] DR SATISH UBRNETTE MD [facility] 08-20-2022 06:40-0400 Body weight 97.[address] SATISH BURNETTE MD [address] 08-20-2022 06:40-0400 diastolic 92 mm[Hg] DR SATISH BURNETTE MD [address] 08-20-2022 06:40-0400 Heart rate 107 /min DR SATISH BURNETTE MD [facility] 08-20-2022 06:40-0400 systolic 150 mm[Hg] DR SATISH BURNETTE MD [facility] Encounters Encounter Date Encounter Type Care Provider Facility Start: 10-23-2022 End: 10-24-2022 ambulatory JAVIER KNOX Facility:A Start: 10-23-2022 End: 10-24-2022 Observation JAVIER KNOX MD [facility] Start: 10-18-2022 End: 10-19-[address] SATISH BURNETTE MD Facility:B Start: 10-18-2022 End: 10-18-[address] SATISH BURNETTE MD [facility] Start: 10-16-2022 End: 10-16-2022 ambulatory JAVIER KNOX Facility:A Start: 10-16-2022 End: 10-16-2022 SAME DAY STAY JAVIER KNOX MD [facility] Start: 09-20-2022 End: 09-20-2022 ambulatory JAVIER KNOX Facility:A Start: 09-20-2022 End: 09-20-2022 SAME DAY STAY JAVIER KNOX MD [facility] Start: 09-17-2022 End: 09-17-2022 ambulatory JAVIER KNOX Facility:A Start: 09-17-2022 End: 09-17-2022 SAME DAY STAY JAVIER KNOX MD [facility] Start: 09-13-2022 End: 09-15-2022 ambulatory JAVIER KNOX Facility:A Start: 09-13-2022 End: 09-15-2022 Observation JAVIER KNOX MD [facility] Start: 08-20-2022 End: 08-20-[address] SATISH BURNETTE MD Facility:A Start: 08-20-2022 End: 08-20-[address] SATISH BURNETTE MD [facility] Procedures Date Procedure Procedure Detail Performing Clinician Start: 09-20-2022 Cardioversion JAVIER Ibanez MD Immunizations Immunization Date Immunization Notes Care Provider Fa cili 08-28-2022 influenza virus vaccine, unspecified formulation JAVIER KNOX MD [facility] 01-25-2021 SARS-CoV-2 mRNA (tozinameran) vaccine DR SATISH BURNETTE MD [facility] 01-04-2021 SARS-CoV-2 mRNA (tozinameran) vaccine DR SATISH BURNETTE MD [facility] Payers Date Payer Category Payer Medicare [id number] 2022 Private Health Insurance [id number] 1950 Unknown [id number] [id number] [id number] 1950 Unknown [id number] 2.16.8 [id number] 1950 Unknown [id number] 2.16.8 [id number] 1950 Unknown [id number] 2.16.8 [id number] 1950 Unknown [id number] 2.16.8 [id number] 1950 Unknown [id number] 2.16.8 [id number] 1950 Unknown [id number] 2.16.8 [id number] Social History Date Type Detail Facility Start: 08-07-2022 Tobacco smoking status Never s moked tobacco (finding) [facility] Sex Assigned At Sex [facility] Functional Status Date Assessment Result Facility 10-24-2022 Functional Status Ambulating in [place], Ambulating in room [facility] 10-24-2022 Functional Status Room located ear nursing station, Room check performed [facility] 10-23-2022 Functional Status [facility] 10-23-2022 Functional Status [facility] 10-23-2022 Functional Status [facility] 10-23-2022 Functional Status Dinner Percent 100 [facility] 10-23-2022 Functional Status Lunch Percent 100 [facility] 10-23-2022 Functional Status Patient Identified Iden tification band [facility] 10-23-2022 Functional Status Maintained [facility] 10-16-2022 Functional Status Ambulating in hennessy, Ambulating in room, Awake [facility] 10-16-2022 Functional Status [facility] 10-16-2022 Functional Status Maintained [facility] 09-20-2022 Functional Status Ambulating in hennessy, Ambulating in room, Up ad pam, Up to bathroom [facility] 09-20-2022 Functional Status Safety level maintained [facility] 09-20-2022 Functional Status Maintained [facility] 09-17-2022 Functional Status Ambulating in hennessy, Ambulating in room, Awake [facility] 09-17-2022 Functional Status Maintained [facility] 09-15-2022 Functional Status Non-Slip footw ear, Room check performed [facility] 09-15-2022 Functional Status [facility] 09-15-2022 Functional Status [facility] 09-15-2022 Functional Status NPO Status Initiated [facility] 09-14-2022 Functional Status Setup [facility] 09-13-2022 Functional Status SCD Removed/Off bilater al knee high [facility] 09-13-2022 Functional Status [facility] 09-13-2022 Functional Status Patient Identified Iden tification band [facility] 09-13-2022 Functional Status [facility] 08-20-2022 Functional Status Room located n ear nursing station, Room check performed [facility] 08-20-2022 Functional Status [facility] Mental Status Date Assessment Result Facility 10-24-2022 Mental Status Oriented x 4 [facility] 10-24-2022 Mental Status [facility] 10-23-2022 Mental Status Oriented x 4 [facility] 10-16-2022 Mental Status Oriented x 4 [facility] 10-16-2022 Mental Status [facility] 09-20-2022 Mental Status Orientation Orie nted x 4, Follows simple commands [facility] 09-20-2022 Mental Status [facility] 09-17-2022 Mental Status Oriented x 4 [facility] 09-15-2022 Mental Status Orientation Oriented x 4 [facility] 09-15-2022 Mental Status [facility] 09-15-2022 Mental Status [facility] 09-14-2022 Mental Status [facility] 08-20-2022 Mental Status Oriented x 4 [facility] Clinical Notes 08-20-2022 to 10-24-2022 Note Date & Type Note Facility 10-24-2022 Hospital Discharg e instructions Patient Education 10/24/2022 09:46:19 3-- EP Study/Ablation (08/2018) (CUSTOM) ELECTROPHYSIOLOGY STUDY/ABLATION Discharge Instructions DIET INSTRUCTIONS Resume diet as prior to procedure ACTIVITIES Do not drive FOR 24 HOURS No heavy lifting GREATER THAN 10 POUNDS or pushing or straining FOR 4 DAYS BATHING/SHOWERING May tub bathe in 4 days Do not sit in hot tub, whirlpool, or swim for 4 days May shower today WOUND CARE You may go home with a Band-Aid over your procedure site. Keep this Band-Aid on for the next 24 hours and then remove it leaving the site open to air. Some degree of bruising and tenderness is normal around the procedure site. It will take a while for any bruising to completely resolve. Keep your site clean and dry. You need to report the following to your device test engineer: ?Any draining or oozing from the site ?Any swelling at the site ?Any increased pain or tenderness at the site ?Any numbness in your leg where the procedure was done ?Any sign of infection WATCH FOR SIGNS OF INFECTION: Elevated temperature above 100.5 Redness or swelling Increased pain Foul odor or drainage. If you have any questions, please call your doctor at the number listed on your follow up instructions. Follow all instructions given to you by your physician. Document Released: 10/20/2006 Document Revised: 10/06/2013 Document Reviewed: 10/21/2014 ExitCare Patient Information 2015 [employer]. This information is not intended to replace advice given to you by your health care provider. Make sure you discuss any questions you have with your health care provider. Follow Up Care 10/17/2022 13:36:21 With:JAVIER KNOX MD Address: [address] [place] [address]- [phone] When:01/31/2023 11:30:00 [facility] 10-24-2022 Summary of episod e note Discharge Instructions Thank you for allowing [facility] to assist you with your healthcare needs. The following is important discharge information regarding your hospital visit. Your Care Team EMILIE SERVIN MD What to do next Scheduled Follow-Up Appointments Appointment Type When Where Contact InformationCV OV 01/13/2023 11:30 AM EDT [facility] Follow Up Appointments Follow Up with JAVIER KNOX MD When 01/31/2023 11:30 AM EDT Where: [address] [facility] [address] [place] [address]- [phone] Allergies Ragweed (Unknown) sulfa (Unknown) Medications Please ask your primary doctor or pharmacist before taking any other medication not listed, including over the counter drugs, herbal medications, vitamins and or supplements as they may interact with your home medications. What How Much When Instructions Last Dose Unchanged apixaban (Eliquis 5 mg oral tablet) 1 tab(s) by mouth Two (2) times a day 0800 Unchanged cholecalciferol (Vitamin D3 50 mcg (2000 intl units) oral capsule) 1 cap by mouth Once a day Unchanged lisinopril (lisinopril 20 mg oral tablet) 1 tab(s) by mouth Two (2) times a day 0800 Unchanged omeprazole (omeprazole 20 mg oral delayed release tablet) 1 tab(s) by mouth Once a day Unchanged sotalol (sotalol 80 mg oral tablet) 1 tab(s) by mouth Two (2) times a day 0800 Please take this list to your next doctor s visit. Bring all medications you take, including over the counter medications, herbals and other supplements with you to your doctor s visit. Patients and families are reminded to discard old lists and to update any records with all medication providers or retail pharmacies. Education Materials ELECTROPHYSIOLOGY STUDY/ABLATION Discharge Instructions DIET INSTRUCTIONS Resume diet as prior to procedure ACTIVITIES Do not drive FOR 24 HOURS No heavy lifting GREATER THAN 10 POUNDS or pushing or straining FOR 4 DAYS BATHING/SHOWERING May tub bathe in 4 days Do not sit in hot tub, whirlpool, or swim for 4 days May shower today WOUND CARE You may go home with a Band-Aid over your procedure site. Keep this Band-Aid on for the next 24 hours and then remove it leaving the site open to air. Some degree of bruising and tenderness is normal around the procedure site. It will take a while for any bruising to completely resolve. Keep your site clean and dry. You need to report the following to your device test engineer: ? Any draining or oozing from the site ? Any swelling at the site ? Any increased pain or tenderness at the site ? Any numbness in your leg where the procedure was done ? Any sign of infection WATCH FOR SIGNS OF INFECTION: Elevated temperature above 100.5 Redness or swelling Increased pain Foul odor or drainage. If you have any questions, please call your doctor at the number listed on your follow up instructions. Follow all instructions given to you by your physician. Document Released: 10/20/2006 Document Revised: 10/06/2013 Document Reviewed: 10/21/2014 ExitCare Patient Information 2015 [employer] [facility]. This information is not intended to replace advice given to you by your health care provider. Make sure you discuss any questions you have with your health care provider. Additional Information VACCINATE! IT SAVES LIVES! Members of the community who have not yet received the COVID-19 vaccine and would like to receive it can visit one of [facility] vaccine clinics. There are many vaccine clinic locations within the [facility]. For locations and available times, please visit [email or web address] It is important to note that some COVID mobile vaccine clinics are held outdoors and may be canceled in rainy or stormy conditions. To learn more about pediatric vaccinations (ages 5-11), we invite you to visit the [facility] webpage. [email or web address] To learn more about the COVID-19 vaccine, we invite you to visit the [facility] website for a list of frequently asked questions. [email or web address] [facility] Patient Portal Access Instructions: Stay connected with your healthcare team and access your personal medical information anytime with the [facility] Patient Portal.If you would like a full copy of your medical records, please contact the [facility] Medical Records Department, Friday through Friday between 8a.m. and 4:30p.m. Please follow the directions below to access the portal: 1.Access the email account you provided upon registration to the [facility].2.Look for an invitation email from [facility].3.Open the email and access the invitation link: Accept Invitation to [facility].Fill in the required michael to create your account. Sign into [email or web address] with your username and password that you created in the above steps to stay up to date. You can then view a summary of results, a summary of your visits, and the ability to download your summaries to your computer or send the information securely to a physician. Remember that your healthcare information is confidential, so carefully consider who you will allow to register on the [facility] Patient Portal for access to your information. You can also access the [facility] Patient Portal on the [employer]. Simply click on Health Records under Health Data and then click on the [employer] logo. HOW TO SAFELY DISPOSE OF PRESCRIPTION MEDICATIONS Please use one of the following methods to safely dispose of your unused medications. 1.Use a drug disposal kit: the drug disposal pouch allows you to safely discard your old and unused drugs. Ask your nurse to give you one when you are discharged.2.Visit a local take-back location: Many local pharmacies and police departments have programs that collect old and unwanted prescription drugs. Call your local pharmacy or go to http://Exercise the World.Polybiotics/4J6Yk4q to find one close to you.3.Make use of household items: Use cat litter or old coffee grounds to dispose medications if other options are not available. Mix your drugs with these household products, seal them in an airtight container and throw it into the garbage. Call [facility]: [phone] to be sure your drugs can be disposed of in this way. Some medicines may require a different approach.4.Never flush your medications down the toilet. IF YOU HAVE BEEN PRESCRIBED AN OPIOID FOR PAIN If you have been prescribed an opioid (such as hydrocodone, oxycodone or morphine), it is critical to understand the possible side effects and risks of opioid pain medications. Even when taken as directed, opioids can have several side effects including: Tolerance, meaning you might need to take more of a medication for the same pain relief. Nausea, vomiting and/or constipation. Sleepiness, dizziness, dry mouth, confusion, depression or itching. Physical dependence, meaning you have withdrawal symptoms when a medication is stopped, can develop within a few days. KNOW YOUR RESPONSIBILITIES It is important to know exactly how much and how often to take the opioid pain medications you are prescribed. Never take opioids in higher amounts or more often than prescribed. Do not combine opioids with alcohol or other drugs that cause drowsiness, such as benzodiazepines, also known as benzos, including diazepam and alprazolam, muscle relaxants or sleep aids. Never sell or share prescription opioids. This is illegal. Store opioids in a secure place and out of reach of others (including children, family, friends and visitors). The last page of this document has been signed and retained as a CHART COPY. Signatures Patient Education Materials 3-- EP Study/Ablation (08/2018) (CUSTOM) Medication Leaflets My discharge plan and instructions have been reviewed and explained to me and I,MARCY ALEJANDRO understand my current condition and have read and understand these discharge instructions. I have received a written copy of the plan/instructions. If I have questions, I am aware that I should contact my doctor. Patient/Oriental Medicine Practitioner Signature: Date/Time: Relationship to Patient: Witness Name/Signature: Date/Time: [facility] 10-23-2022 Anesthesiology Consult note Patient: MARCY ALEJANDRO Age: 72 years Sex: Male : 1950 Associated Diagnoses: None Author: MAYELIN JANSEN MD Postoperative Information Post Operative Info: Post op day: Day 0. Patient location: [facility]. Notes: s/p afib ablation.. Assessment Postanesthesia assessment Vitals: Vital signs from flowsheet : Vital Signs 10/23/2022 17:29 EST Heart Rate Monitored 73 bpm Respiratory Rate 16 br/min Systolic Blood Pressure Non-Invasive 120 mmHg Diastolic Blood Pressure Non-Invasive 68 mmHg , Oxygen Therapy : Oxygen Therapy & Oxygenation Information 10/23/2022 15:00 EST Oxygen Therapy Room air 10/23/2022 14:45 EST Oxygen Saturation 100 % . Mental status: at preoperative baseline. Respiratory function: respirations are non-labored. Respiratory support: none. CV function: Normal rate, Regular rhythm. Cardiovascular support: none. Pain: Satisfactory. Nausea status: Satisfactory. Postoperative hydration status: within normal limits. Notes: Patient is sufficiently recovered from anesthesia to participate in the evaluation. No follow-up care needed. No complications post-anesthesia.. Digitally Signed by MAYELIN JANSEN MD on 10/23/2022 06:20 PM [facility] 10-23-2022 Anesthesiology Consult note Patient: MARCY ALEJANDRO Age: 72 years Sex: Male : 1950 Associated Diagnoses: None Author: SALEEM MAYNARD MD Preoperative Information NPO > 8 hours Anesthesia history Patient's history: negative. Health Status Allergies: Allergic Reactions (Selected) Severity Not Documented Ragweed- Unknown. Sulfa- Unknown., Allergies (2) ActiveReaction RagweedUnknown sulfaUnknown Current medications: (Selected) Inpatient Medications Ordered NS 1,000 mL: Start: 10/23/22 5:00:00 EST, Rate: 20 mL/hr, 10/23/22 5:00:00 EST Documented Medications Documented Eliquis 5 mg oral tablet: Dose : 5 mg = 1 tab(s), Oral, BID, 0 Refill(s) Vitamin D3 50 mcg (2000 intl units) oral capsule: Dose : 50 mcg = 1 cap(s), Oral, qDay, # 60 cap(s), 0 Refill(s) lisinopril 20 mg oral tablet: Dose : 20 mg = 1 tab(s), Oral, BID, 0 Refill(s) omeprazole 20 mg oral delayed release tablet: Dose : 20 mg = 1 tab(s), Oral, qDay, 0 Refill(s) sotalol 80 mg oral tablet: Dose : 80 mg = 1 tab(s), Oral, BID, # 60 tab(s), 0 Refill(s) Problem list: Medical Atrial fibrillation / SNOMED CT 93470137 / Confirmed Atrial flutter / SNOMED CT 7609161 / Confirmed Increased BMI / SNOMED CT 14607842 / Confirmed, Active Problems (3) Atrial fibrillation Atrial flutter Increased BMI Histories Past Medical History: No active or resolved past medical history items have been selected or recorded. Procedure history: Cardioversion ([id number]) on 09/20/2022 at 72 Years. Comments: 09/25/2022 10:25 Jazz Reyes MA (ABR-OE) Unfortunate the patient was not able to maintain normal sinus rhythm. Would occasionally have a conversion pause with sinus rhythm christian quickly followed by a recurring PAC and going back into A. fib/atrial flutter. Cardioversion ([id number]) on 09/17/2022 at 72 Years. Comments: 09/25/2022 10:29 Jazz Reyes MA (ABR-OE) Unsuccessful. Cardiac ablation using fluoroscopy guidance ([id number]) on 09/13/2022 at 72 Years. Comments: 09/25/2022 10:14 Jazz Reyes MA (ABR-OE) 1. Successful atrial fibrillation ablation (RF-pulmonary vein isolation) 2. Successful ablation of an atrial flutter mechanism (RF-roof line) 3. Successful ablation of an atrial flutter mechanism (RF-cavotricuspid isthmus) 4. 3D Mapping, ICE imaging, US groin access Cardioversion ([id number]) on 08/20/2022 at 72 Years. Comments: 09/11/2022 13:42 Mala Tam LPN IMPRESSION: Successful direct current cardioversion with christian of sinus rhythm from atrial fibrillation with no immediate complication. Cardiovascular stress testing ([id number]) on 06/03/2022 at 71 Years. Comments: 08/07/2022 12:37 Re Larsen MA (ABR-OE) Normal exercise myocardial perfusion stress test at a high workload. Preserved EF. No a-fib during exercise. Echocardiogram ([id number]) on 11/21/2021 at 71 Years. Comments: 08/07/2022 12:38 Re Larsen MA (ABR-OE) Normal LV size EF 57%. MIld mitral valve insufficiency. Stage 2 diastolic dysfunction. Direct current cardioversion ([id number]) on 08/30/2020 at 70 Years. Comments: 08/07/2022 12:40 Re Larsen MA (ABR-OE) Successful DC cardioversion from a-flutter to sinus rhythm Thoracentesis ([id number]) in 2014 at 65 Years. Dilatation of esophageal stricture ([id number]). Tonsillectomy ([id number]). 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 Physical Examination Vital Signs(last 24 hrs) Last Charted Temp Oral37.3 DegC (OCT 23 09:38) Resp Rate 16 br/min (OCT 23:38) SBPH 149mmHg (OCT 23:38) DBPH 98mmHg (OCT 23:38) Measurements from flowsheet : Measurements 10/23/2022 9:38 EST Height 91.0 cm Admission Weight 180.3 kg Weight Method Actual [place] Body Weight -5.60 kg General: Alert and oriented. Airway: Mallampati classification: II (soft palate, fauces, uvula visible). Dentition Evaluation: Missing teeth. Respiratory: Lungs are clear to auscultation, Respirations are non-labored. Cardiovascular: Irregular rhythm. Heart Sounds: Normal. Neurologic: Alert, Oriented. Review / Management Documentation reviewed: Current records. Assessment and Plan [place] [employer] Anesthesiologists (ASA) physical status classification: Class III. Anesthetic Preoperative Plan Premedication: intravenous. Anesthetic technique: General. Induction: intravenously. Maintenance airway: Oral endotracheal tube. Special Monitoring: Arterial line. Informed consent: signed by patient. Digitally Signed by SALEEM MAYNARD MD on 10/23/2022 10:35 AM [facility] 10-16-2022 Discharge summary Date of Service October 16, 2022 Shared/Split visit with Dr. [facility] Discharge Diagnosis AF Hospital Course This is a 72-year-old male with recurring persistent atrial fibrillation status post direct-current cardioversions and ablative therapies completed September 2022. The patient has adjusted his sotalol quite a few times. Is currently on sotalol 80 mg twice a day. He presents today for repeat direct-current cardioversion. Presenting rhythm was atrial fibrillation a heart rate of 115 bpm. Menstruation assistants administered an IV anesthetic agent patient was fully sedated anterior posterior patch approach utilizing synchronized biphasic waveform at 150 and 200 J yield early return of atrial fibrillation. A third attempt with anterior patch repositioning at 200 J also yield early return of atrial fibrillation with restoring normal sinus rhythm for 1-2 beats and immediately going back into A. fib. A fourth and final attempt after 5 mg dose of Cardizem was given rebolusing of anesthetic. An anterior patch repositioning to left anterior chest wall revealed the same results with early return of atrial fibrillation. Unfortunately the patient remained in atrial fibrillation. Only able to hold normal sinus rhythm for approximately 1-2 beats. After discussion with primary EP (Dr. Knox) he would like to move forward with repeat ablative therapies. The patient tolerated the procedure well. Return to cardiac same-day in good condition. The patient will await phone call from the office to move forward with repeat ablation. Allergies Ragweed (Unknown) sulfa (Unknown) Procedures [facility] - 10/16/2022 x4 -> ERAF Consults No qualifying data available. Objective Vitals and Measurements T: 36.4 C (Skin) TMIN: 36.4 C (Skin) TMAX: 36.7 C (Oral) HR: 97(Monitored) RR: 16 BP: 115/78 SpO2: 97% HT: 180.3 cm WT: 91.4 kg BMI: 28.12 BMI: 28.12 Weight Dosing Weight: 91.4 kg (10/16/22) Pending Labs and Studies EKG prior to discharge Code Status No qualifying data available. Admission Date October 16, 2022 Discharge Date October 16, 2022 Patient Instructions No driving for today. Patient may resume prior diet and activity tomorrow. Medications Unchanged apixaban (Eliquis 5 mg oral tablet)1 tab(s) by mouth two (2) times a day. cholecalciferol (Vitamin D3 50 mcg (2000 intl units) oral capsule)1 cap by mouth once a day. lisinopril (lisinopril 20 mg oral tablet)1 tab(s) by mouth two (2) times a day. omeprazole (omeprazole 20 mg oral delayed release tablet)1 tab(s) by mouth once a day. sotalol (sotalol 80 mg oral tablet)1 tab(s) by mouth two (2) times a day. Follow Up Repeat Ablation with Dr. Knox Condition on Discharge Stable Digitally Signed by ERNESTINA VAZQUEZ on 10/16/2022 04:37 PM Digitally Signed by JAVIER KNOX MD on 10/16/2022 10:05 PM [facility] 10-16-2022 Cardiology procedure note Date of Service October 16, 2022 Procedure Name Direct-current cardioversion Referring Provider Dr. Knox Consent Informed consent was obtained by nursing and anesthesia personnel Indication AF RVR Location CVOR Technique This is a 72-year-old male with recurring persistent atrial fibrillation status post direct-current cardioversions and ablative therapies completed September 2022. The patient has adjusted his sotalol quite a few times. Is currently on sotalol 80 mg twice a day. He presents today for repeat direct-current cardioversion. Presenting rhythm was atrial fibrillation a heart rate of 115 bpm. Menstruation assistants administered an IV anesthetic agent patient was fully sedated anterior posterior patch approach utilizing synchronized biphasic waveform at 150 and 200 J yield early return of atrial fibrillation. A third attempt with anterior patch repositioning at 200 J also yield early return of atrial fibrillation with restoring normal sinus rhythm for 1-2 beats and immediately going back into A. fib. A fourth and final attempt after 5 mg dose of Cardizem was given rebolusing of anesthetic. An anterior patch repositioning to left anterior chest wall revealed the same results with early return of atrial fibrillation. Unfortunately the patient remained in atrial fibrillation. Only able to hold normal sinus rhythm for approximately 1-2 beats. After discussion with primary EP (Dr. Knox) he would like to move forward with repeat ablative therapies. The patient tolerated the procedure well. Return to cardiac same-day in good condition. The patient will await phone call from the office to move forward with repeat ablation. Assessment/Plan Orders: Discharge Discharge Activity Discharge Diet Discharge Wound Care Discontinue Order Electrocardiogram Digitally Signed by ERNESTINA VAZQUEZ on 10/16/2022 04:35 PM [facility] 10-16-2022 Hospital Discharg e instructions Patient Education 10/16/2022 10:47:25 3- Cardioversion (08/2018) (Custom) CARDIOVERSION Discharge instructions ACTIVITY/SAFETY Please refrain from the following activities for 24 hours: Do not drive a car or operate heavy equipment. Do not consume alcohol for 24 hours. Do not return to work for 24 hours. Postpone signing any important papers or making important decisions. COMFORT Call your primary doctor if you have any redness, tenderness, warmth, discharge or swelling at your IV site. Your chest or back may get red and/or develop a burning sensation. Apply fragrance-free Aloe Vera lotion. Take Tylenol as needed for pain. DIET When you return home, resume your regular diet unless otherwise directed. Some of the sedatives, anesthetic medications you received today may make you nauseated. If vomiting persists, call your doctor. Restart your usual medications unless otherwise instructed by your doctor. If you have any questions, please call your doctor at the number listed on your follow up instructions. Document Released: 10/20/2006 Document Revised: 10/06/2013 Document Reviewed: 10/21/2014 ExitCare Patient Information 2015 [employer]. This information is not intended to replace advice given to you by your health care provider. Make sure you discuss any questions you have with your health care provider. [facility] 10-16-2022 Summary of episod e note Discharge Instructions Thank you for allowing [facility] to assist you with your healthcare needs. The following is important discharge information regarding your hospital visit. Your Care Team EMILIE SERVIN MD What to do next Scheduled Follow-Up Appointments Appointment Type When Where Contact InformationCV Procedure - AOH Echo 10/18/2022 10:00 AM [facility] Radiology CV OV 11/28/2022 11:30 AM [facility] The Following Activity and Diet Have Been Ordered for You Discharge Activity - Ordered -- Follow the post-operative/post-procedure activity instructions provided by your physician's office., 10/16/22 10:36:00 EST Discharge Diet - Ordered -- Follow the post-operative/post-procedure diet instructions provided by your physician's office., 10/16/22 10:36:00 EST The Following Equipment Has Been Ordered for You Discharge Home Equipment Discharge Wound Care - Ordered -- Follow the post-operative/post-procedure wound care instructions provided by your physician's office., 10/16/22 10:36:00 EST The Following Treatments Have Been Ordered for You Discharge Labs No qualifying data available. Discharge Radiology No qualifying data available. Other Therapies No qualifying data available. Post Acute Orders No qualifying data available. Someone Will Contact You Regarding These Home Health Referrals No home referrals have been ordered for you. No one will call you. Allergies Ragweed (Unknown) sulfa (Unknown) Medications Please ask your primary doctor or pharmacist before taking any other medication not listed, including over the counter drugs, herbal medications, vitamins and or supplements as they may interact with your home medications. What How Much When Instructions Last Dose Unchanged apixaban (Eliquis 5 mg oral tablet) 1 tab(s) by mouth Two (2) times a day Unchanged cholecalciferol (Vitamin D3 50 mcg (2000 intl units) oral capsule) 1 cap by mouth Once a day Unchanged lisinopril (lisinopril 20 mg oral tablet) 1 tab(s) by mouth Two (2) times a day Unchanged omeprazole (omeprazole 20 mg oral delayed release tablet) 1 tab(s) by mouth Once a day Unchanged sotalol (sotalol 80 mg oral tablet) 1 tab(s) by mouth Two (2) times a day Please take this list to your next doctor s visit. Bring all medications you take, including over the counter medications, herbals and other supplements with you to your doctor s visit. Patients and families are reminded to discard old lists and to update any records with all medication providers or retail pharmacies. Education Materials CARDIOVERSION Discharge instructions ACTIVITY/SAFETY Please refrain from the following activities for 24 hours: Do not drive a car or operate heavy equipment. Do not consume alcohol for 24 hours. Do not return to work for 24 hours. Postpone signing any important papers or making important decisions. COMFORT Call your primary doctor if you have any redness, tenderness, warmth, discharge or swelling at your IV site. Your chest or back may get red and/or develop a burning sensation. Apply fragrance-free Aloe Vera lotion. Take Tylenol as needed for pain. DIET When you return home, resume your regular diet unless otherwise directed. Some of the sedatives, anesthetic medications you received today may make you nauseated. If vomiting persists, call your doctor. Restart your usual medications unless otherwise instructed by your doctor. If you have any questions, please call your doctor at the number listed on your follow up instructions. Document Released: 10/20/2006 Document Revised: 10/06/2013 Document Reviewed: 10/21/2014 ExitCare Patient Information 2015 [facility], [facility]. This information is not intended to replace advice given to you by your health care provider. Make sure you discuss any questions you have with your health care provider. Additional Information VACCINATE! IT SAVES LIVES! Members of the community who have not yet received the COVID-19 vaccine and would like to receive it can visit one of [facility] vaccine clinics. There are many vaccine clinic locations within the [facility]. For locations and available times, please visit [email or web address] It is important to note that some COVID mobile vaccine clinics are held outdoors and may be canceled in rainy or stormy conditions. To learn more about pediatric vaccinations (ages 5-11), we invite you to visit the [facility] webpage. [email or web address] To learn more about the COVID-19 vaccine, we invite you to visit the [facility] website for a list of frequently asked questions. [email or web address] [facility] Patient Portal Access Instructions: Stay connected with your healthcare team and access your personal medical information anytime with the [facility] Patient Portal.If you would like a full copy of your medical records, please contact the [facility] Medical Records Department, Friday through Friday between 8a.m. and 4:30p.m. Please follow the directions below to access the portal: 1.Access the email account you provided upon registration to the [facility].2.Look for an invitation email from [facility].3.Open the email and access the invitation link: Accept Invitation to [facility]4.Fill in the required michael to create your account. Sign into [email or web address] with your username and password that you created in the above steps to stay up to date. You can then view a summary of results, a summary of your visits, and the ability to download your summaries to your computer or send the information securely to a physician. Remember that your healthcare information is confidential, so carefully consider who you will allow to register on the [facility] Patient Portal for access to your information. You can also access the [facility] Patient Portal on the [employer] savana. Simply click on Health Records under Health Data and then click on the [employer] logo. HOW TO SAFELY DISPOSE OF PRESCRIPTION MEDICATIONS Please use one of the following methods to safely dispose of your unused medications. 1.Use a drug disposal kit: the drug disposal pouch allows you to safely discard your old and unused drugs. Ask your nurse to give you one when you are discharged.2.Visit a local take-back location: Many local pharmacies and police departments have programs that collect old and unwanted prescription drugs. Call your local pharmacy or go to http://Exercise the World.Polybiotics/6A8Vk5g to find one close to you.3.Make use of household items: Use cat litter or old coffee grounds to dispose medications if other options are not available. Mix your drugs with these household products, seal them in an airtight container and throw it into the garbage. Call [facility]: [phone] to be sure your drugs can be disposed of in this way. Some medicines may require a different approach.4.Never flush your medications down the toilet. IF YOU HAVE BEEN PRESCRIBED AN OPIOID FOR PAIN If you have been prescribed an opioid (such as hydrocodone, oxycodone or morphine), it is critical to understand the possible side effects and risks of opioid pain medications. Even when taken as directed, opioids can have several side effects including: Tolerance, meaning you might need to take more of a medication for the same pain relief. Nausea, vomiting and/or constipation. Sleepiness, dizziness, dry mouth, confusion, depression or itching. Physical dependence, meaning you have withdrawal symptoms when a medication is stopped, can develop within a few days. KNOW YOUR RESPONSIBILITIES It is important to know exactly how much and how often to take the opioid pain medications you are prescribed. Never take opioids in higher amounts or more often than prescribed. Do not combine opioids with alcohol or other drugs that cause drowsiness, such as benzodiazepines, also known as benzos, including diazepam and alprazolam, muscle relaxants or sleep aids. Never sell or share prescription opioids. This is illegal. Store opioids in a secure place and out of reach of others (including children, family, friends and visitors). The last page of this document has been signed and retained as a CHART COPY. Signatures Patient Education Materials 3- Cardioversion (08/2018) (Custom) Medication Leaflets My discharge plan and instructions have been reviewed and explained to me and I,MARCY ALEJANDRO understand my current condition and have read and understand these discharge instructions. I have received a written copy of the plan/instructions. If I have questions, I am aware that I should contact my doctor. 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 Family's history: negative. Review of Systems Ear/Nose/Mouth/Throat: Negative except as documented in history of present illness. Respiratory: Negative except as documented in history of present illness. Cardiovascular: Negative except as documented in history of present illness. Gastrointestinal: Negative except as documented in history of present illness. Genitourinary: Negative except as documented in history of present illness. Endocrine: Negative except as documented in history of present illness. Musculoskeletal: Negative except as documented in history of present illness. Integumentary: Negative except as documented in history of present illness. Neurologic: Negative except as documented in history of present illness. Health Status Allergies: Allergic Reactions (Selected) Severity Not Documented Ragweed- Unknown. Sulfa- Unknown., Allergies (2) ActiveReaction RagweedUnknown sulfaUnknown Current medications: (Selected) Inpatient Medications Ordered NS 1,000 mL: Start: 10/16/22 5:00:00 EST, Rate: 20 mL/hr, 10/16/22 5:00:00 EST lidocaine 1% preservative-free injectable solution: Start: 10/16/22 5:00:00 EST, Dose = 2.5 mg, = 0.25 mL, Intradermal, prep pharm, 10/16/22 5:00:00 EST Documented Medications Documented Eliquis 5 mg oral tablet: Dose : 5 mg = 1 tab(s), Oral, BID, 0 Refill(s) Vitamin D3 50 mcg (2000 intl units) oral capsule: Dose : 50 mcg = 1 cap(s), Oral, qDay, # 60 cap(s), 0 Refill(s) lisinopril 20 mg oral tablet: Dose : 20 mg = 1 tab(s), Oral, BID, 0 Refill(s) omeprazole 20 mg oral delayed release tablet: Dose : 20 mg = 1 tab(s), Oral, qDay, 0 Refill(s) sotalol 80 mg oral tablet: Dose : 80 mg = 1 tab(s), Oral, BID, # 60 tab(s), 0 Refill(s), Medications (2) Active Scheduled: (1) lidocaine 1% (MPF) 2 mL vial pf 2.5 mg 0.25 mL, Intradermal, prep pharm Continuous: (1) NS (0.9% nacl) 1,000 mL 1,000 mL, Intravenous, 20 mL/hr PRN: (0) Problem list: Medical Atrial fibrillation / SNOMED CT 39840078 / Confirmed Atrial flutter / SNOMED CT 1154299 / Confirmed Increased BMI / SNOMED CT 96374122 / Confirmed, Active Problems (3) Atrial fibrillation Atrial flutter Increased BMI Histories Past Medical History: No active or resolved past medical history items have been selected or recorded. Family History: Cancer Mother Brother Aortic valve replacement and aortoplasty Father () High blood pressure Mother CABG - Coronary artery bypass graft Father (): onset at 75 . Procedure history: Cardioversion ([id number]) on 09/20/2022 at 72 Years. Comments: 09/25/2022 10:25 LANE - Jazz Jean Baptiste MA (ABR-OE) Unfortunate the patient was not able to maintain normal sinus rhythm. Would occasionally have a conversion pause with sinus rhythm christian quickly followed by a recurring PAC and going back into A. fib/atrial flutter. Cardioversion ([id number]) on 09/17/2022 at 72 Years. Comments: 09/25/2022 10:29 Jazz Reyes MA (ABR-OE) Unsuccessful. Cardiac ablation using fluoroscopy guidance ([id number]) on 09/13/2022 at 72 Years. Comments: 09/25/2022 10:14 Jazz Reyes MA (ABR-OE) 1. Successful atrial fibrillation ablation (RF-pulmonary vein isolation) 2. Successful ablation of an atrial flutter mechanism (RF-roof line) 3. Successful ablation of an atrial flutter mechanism (RF-cavotricuspid isthmus) 4. 3D Mapping, ICE imaging, US groin access Cardioversion ([id number]) on 08/20/2022 at 72 Years. Comments: 09/11/2022 13:42 Mala Tam LPN IMPRESSION: Successful direct current cardioversion with christian of sinus rhythm from atrial fibrillation with no immediate complication. Cardiovascular stress testing ([id number]) on 06/03/2022 at 71 Years. Comments: 08/07/2022 12:37 Re Larsen MA (ABR-OE) Normal exercise myocardial perfusion stress test at a high workload. Preserved EF. No a-fib during exercise. Echocardiogram ([id number]) on 11/21/2021 at 71 Years. Comments: 08/07/2022 12:38 Re Larsen MA (ABR-OE) Normal LV size EF 57%. MIld mitral valve insufficiency. Stage 2 diastolic dysfunction. Direct current cardioversion ([id number]) on 08/30/2020 at 70 Years. Comments: 08/07/2022 12:40 Re Larsen MA (ABR-OE) Successful DC cardioversion from a-flutter to sinus rhythm Thoracentesis ([id number]) in 2014 at 65 Years. Dilatation of esophageal stricture ([id number]). Tonsillectomy ([id number]). 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 Physical Examination General: Alert and oriented. Airway: Normal temporomandibular joint mobility, Normal mouth, Normal throat, Normal neck range of motion, Trachea midline. Mallampati classification: II (soft palate, fauces, uvula visible). Head: Normocephalic. Dentition Evaluation: Missing teeth, 2 teeth. Neck: Supple. Respiratory: Lungs are clear to auscultation, Respirations are non-labored. Cardiovascular: Normal rate, No murmur. Heart Sounds: Normal. Gastrointestinal: Soft. Musculoskeletal Normal range of motion. Integumentary: Intact, Warm, Dry. Neurologic: Alert, Oriented. Review / Management Results review: Lab results: 10/16/2022 5:00 EST Electrocardiogram - EKG - CV Ordered (In Progress). Assessment and Plan [place] [employer] Anesthesiologists (ASA) physical status classification: Class IV. Anesthetic Preoperative Plan Premedication: intravenous. Anesthetic technique: General. Induction: intravenously. Maintenance airway: Mask. Special techniques: Warming device. Special Monitoring. Postoperative pain management: Per surgeon. Risks discussed: nausea, vomiting, headache, sore throat, dental injury, hypotension, allergic reaction, serious complications. Informed consent: signed by patient. Beta Alexy: Beta Alexy Taken Within 24 Hrs: Yes. Digitally Signed by PAUL CABRAL DO on 10/16/2022 06:14 AM Digitally Signed by PAUL CABRAL DO on 10/16/2022 09:57 AM [facility] 09-20-2022 Discharge summary Date of Service September 20, 2022 Shared/Split visit with Dr. Knox Discharge Diagnosis AF Hospital Course This is a 72-year-old male recently evaluated by Dr. Knox and undergoing ablative therapies. However patient was noted to have residual atrial fibrillation was planned for direct-current cardioversion. Unfortunately on September 17, 2021 patient had early return of atrial fibrillation. Sotalol was increased to max dose of 160 mg twice daily and presented for repeat direct-current cardioversion today. Patient minute for direct-current cardioversion on September 20, 2022 in a fasting well-hydrated state. Presenting rhythm was atrial fibrillation at a heart rate of approximately 110 115 bpm. Once a MEDICAL PHYSICS PROFESSOR administered an IV anesthetic agent the patient was fully sedated anterior posterior patch ritualizing synchronized biphasic waveform at 100, 150 and 200 J with anterior direct pressure; and moving anterior patch on the third and final attempt all resulted in early return of atrial fibrillation. Patient does document 2-1 atrial flutter. Rhythm strips have been printed and will be routed to primary EP. Unfortunate the patient was not able to maintain normal sinus rhythm. Would occasionally have a conversion pause with sinus rhythm christian quickly followed by a recurring PAC and going back into A. fib/atrial flutter. The patient tolerated the procedure well was returned to cardiac same-day in good condition. This time I will collaborate with primary EP to move forward with repeat ablative therapies. Allergies Ragweed (Unknown) sulfa (Unknown) Procedures DCC - 09/20/2022 Consults No qualifying data available. Objective Vitals and Measurements T: 36.5 C (Skin) TMIN: 36.5 C (Skin) TMAX: 36.7 C (Oral) HR: 75 RR: 18 BP: 130/78 BP: 133/82(Left Arm) SpO2: 97% HT: 180.3 cm WT: 92.6 kg BMI: 28.49 BMI: 28.49 Weight Dosing Weight: 92.6 kg (09/20/22) Pending Labs and Studies EKG prior to discharge Code Status No qualifying data available. Admission Date September 20, 2022 Discharge Date September 20, 2022 Patient Instructions No driving for today. Patient may resume prior diet and activity tomorrow. Medications Unchanged apixaban (Eliquis 5 mg oral tablet)1 tab(s) by mouth two (2) times a day. cholecalciferol (Vitamin D3 50 mcg (2000 intl units) oral capsule)1 cap by mouth once a day. lisinopril (lisinopril 20 mg oral tablet)1 tab(s) by mouth two (2) times a day. omeprazole (omeprazole 20 mg oral delayed release tablet)1 tab(s) by mouth once a day. sotalol (sotalol 160 mg oral tablet)1 tab(s) by mouth two (2) times a day. Refills: 3. Follow Up Follow Up with JAVIER KNOX MD When 10/31/2022 01:45 PM EST Where: [address] [facility] [address] [facility] [place] [address]- [phone] Follow Up Labs/Studies Need to collaborate with Dr. Knox for repeat ablative therapies. Patient will be contacted either later today or early next week for date and time regarding procedures. Condition on Discharge Stable Digitally Signed by ERNESTINA VAZQUEZ on 09/20/2022 09:59 AM [facility] 09-20-2022 Hospital Discharg e instructions Patient Education 09/20/2022 09:33:30 General Anesthesia, Adult, Care After General Anesthesia, Adult, Care After This sheet gives you information about how to care for yourself after your procedure. Your health care provider may also give you more specific instructions. If you have problems or questions, contact your health care provider. What can I expect after the procedure? After the procedure, the following side effects are common: Pain or discomfort at the IV site. Nausea. Vomiting. Sore throat. Trouble concentrating. Feeling cold or chills. Weak or tired. Sleepiness and fatigue. Soreness and body aches. These side effects can affect parts of the body that were not involved in surgery. Follow these instructions at home: For at least 24 hours after the procedure: Have a responsible adult stay with you. It is important to have someone help care for you until you are awake and alert. Rest as needed. Do not: ?Participate in activities in which you could fall or become injured. ?Drive. ?Use heavy machinery. ?Drink alcohol. ?Take sleeping pills or medicines that cause drowsiness. ?Make important decisions or sign legal documents. ?Take care of children on your own. Eating and drinking Follow any instructions from your health care provider about eating or drinking restrictions. When you feel hungry, start by eating small amounts of foods that are soft and easy to digest (bland), such as toast. Gradually return to your regular diet. Drink enough fluid to keep your urine pale yellow. If you vomit, rehydrate by drinking water, juice, or clear broth. General instructions If you have sleep apnea, surgery and certain medicines can increase your risk for breathing problems. Follow instructions from your health care provider about wearing your sleep device: ?Anytime you are sleeping, including during daytime naps. ?While taking prescription pain medicines, sleeping medicines, or medicines that make you drowsy. Return to your normal activities as told by your health care provider. Ask your health care provider what activities are safe for you. Take [id number] and prescription medicines only as told by your health care provider. If you smoke, do not smoke without supervision. Keep all follow-up visits as told by your health care provider. This is important. Contact a health care provider if: You have nausea or vomiting that does not get better with medicine. You cannot eat or drink without vomiting. You have pain that does not get better with medicine. You are unable to pass urine. You develop a skin rash. You have a fever. You have redness around your IV site that gets worse. Get help right away if: You have difficulty breathing. You have chest pain. You have blood in your urine or stool, or you vomit blood. Summary After the procedure, it is common to have a sore throat or nausea. It is also common to feel tired. Have a responsible adult stay with you for the first 24 hours after general anesthesia. It is important to have someone help care for you until you are awake and alert. When you feel hungry, start by eating small amounts of foods that are soft and easy to digest (bland), such as toast. Gradually return to your regular diet. Drink enough fluid to keep your urine pale yellow. Return to your normal activities as told by your health care provider. Ask your health care provider what activities are safe for you. This information is not intended to replace advice given to you by your health care provider. Make sure you discuss any questions you have with your health care provider. Document Released: 01/26/2002 Document Revised: 10/23/2018 Document Reviewed: 06/05/2018 [employer] Patient Education 2020 [employer] 09/20/2022 09:33:12 3- Cardioversion (08/2018)(CUSTOM) CARDIOVERSION Discharge instructions ACTIVITY/SAFETY Please refrain from the following activities for 24 hours: Do not drive a car or operate heavy equipment. Do not consume alcohol for 24 hours. Do not return to work for 24 hours. Postpone signing any important papers or making important decisions. COMFORT Call your primary doctor if you have any redness, tenderness, warmth, discharge or swelling at your IV site. Your chest or back may get red and/or develop a burning sensation. Apply fragrance-free Aloe Vera lotion. Take Tylenol as needed for pain. DIET When you return home, resume your regular diet unless otherwise directed. Some of the sedatives, anesthetic medications you received today may make you nauseated. If vomiting persists, call your doctor. Restart your usual medications unless otherwise instructed by your doctor. If you have any questions, please call your doctor at the number listed on your follow up instructions. Document Released: 10/20/2006 Document Revised: 10/06/2013 Document Reviewed: 10/21/2014 ExitCare Patient Information 2015 [employer]. This information is not intended to replace advice given to you by your health care provider. Make sure you discuss any questions you have with your health care provider. Follow Up Care 09/18/2022 16:26:49 With:JAVIER KNOX MD Address: [address] [place] [address] [address] [facility] [place] [address]- [phone] When:10/31/2022 13:45:00 [facility] 09-20-2022 Discharge summary Date of Service September 20, 2022 Shared/Split visit with Dr. Knox Discharge Diagnosis AF Hospital Course This is a 72-year-old male recently evaluated by Dr. Knox and undergoing ablative therapies. However patient was noted to have residual atrial fibrillation was planned for direct-current cardioversion. Unfortunately on September 17, 2021 patient had early return of atrial fibrillation. Sotalol was increased to max dose of 160 mg twice daily and presented for repeat direct-current cardioversion today. Patient minute for direct-current cardioversion on September 20, 2022 in a fasting well-hydrated state. Presenting rhythm was atrial fibrillation at a heart rate of approximately 110 115 bpm. Once a MEDICAL PHYSICS PROFESSOR administered an IV anesthetic agent the patient was fully sedated anterior posterior patch ritualizing synchronized biphasic waveform at 100, 150 and 200 J with anterior direct pressure; and moving anterior patch on the third and final attempt all resulted in early return of atrial fibrillation. Patient does document 2-1 atrial flutter. Rhythm strips have been printed and will be routed to primary EP. Unfortunate the patient was not able to maintain normal sinus rhythm. Would occasionally have a conversion pause with sinus rhythm christian quickly followed by a recurring PAC and going back into A. fib/atrial flutter. The patient tolerated the procedure well was returned to cardiac same-day in good condition. This time I will collaborate with primary EP to move forward with repeat ablative therapies. Allergies Ragweed (Unknown) sulfa (Unknown) Procedures [facility] - 09/20/2022 Consults No qualifying data available. Objective Vitals and Measurements T: 36.5 C (Skin) TMIN: 36.5 C (Skin) TMAX: 36.7 C (Oral) HR: 75 RR: 18 BP: 130/78 BP: 133/82(Left Arm) SpO2: 97% HT: 180.3 cm WT: 92.6 kg BMI: 28.49 BMI: 28.49 Weight Dosing Weight: 92.6 kg (09/20/22) Pending Labs and Studies EKG prior to discharge Code Status No qualifying data available. Admission Date September 20, 2022 Discharge Date September 20, 2022 Patient Instructions No driving for today. Patient may resume prior diet and activity tomorrow. Medications Unchanged apixaban (Eliquis 5 mg oral tablet)1 tab(s) by mouth two (2) times a day. cholecalciferol (Vitamin D3 50 mcg (2000 intl units) oral capsule)1 cap by mouth once a day. lisinopril (lisinopril 20 mg oral tablet)1 tab(s) by mouth two (2) times a day. omeprazole (omeprazole 20 mg oral delayed release tablet)1 tab(s) by mouth once a day. sotalol (sotalol 160 mg oral tablet)1 tab(s) by mouth two (2) times a day. Refills: 3. Follow Up Follow Up with JAVIER KNOX MD When 10/31/2022 01:45 PM EST Where: [address] [facility] [place] [address]- [phone] Follow Up Labs/Studies Need to collaborate with Dr. Knox for repeat ablative therapies. Patient will be contacted either later today or early next week for date and time regarding procedures. Condition on Discharge Stable Digitally Signed by ERNESTINA VAZQUEZ on 09/20/2022 09:59 AM [facility] 09-20-2022 Cardiology procedure note Date of Service September 20, 2022 Procedure Name Direct Current Cardioversion Referring Provider Dr. Knox Consent Informed consent was obtained by nursing and anesthesia personnel Indication AF/AFL Location CVOR Technique This is a 72-year-old male recently evaluated by Dr. Knox and undergoing ablative therapies. However patient was noted to have residual atrial fibrillation was planned for direct-current cardioversion. Unfortunately on September 17, 2021 patient had early return of atrial fibrillation. Sotalol was increased to max dose of 160 mg twice daily and presented for repeat direct-current cardioversion today. Patient minute for direct-current cardioversion on September 20, 2022 in a fasting well-hydrated state. Presenting rhythm was atrial fibrillation at a heart rate of approximately 110 115 bpm. Once a MEDICAL PHYSICS PROFESSOR administered an IV anesthetic agent the patient was fully sedated anterior posterior patch ritualizing synchronized biphasic waveform at 100, 150 and 200 J with anterior direct pressure; and moving anterior patch on the third and final attempt all resulted in early return of atrial fibrillation. Patient does document 2-1 atrial flutter. Rhythm strips have been printed and will be routed to primary EP. Unfortunate the patient was not able to maintain normal sinus rhythm. Would occasionally have a conversion pause with sinus rhythm christian quickly followed by a recurring PAC and going back into A. fib/atrial flutter. The patient tolerated the procedure well was returned to cardiac same-day in good condition. This time I will collaborate with primary EP to move forward with repeat ablative therapies. Assessment/Plan Orders: apixaban, Start: 09/20/22 9:09:00 EST, Dose = 5 mg, = 1 tab(s), Oral, BID, Indication for Use Persistant atrial fibrillation, 09/20/22 9:09:00 EST cholecalciferol, Start: 09/20/22 9:09:00 EST, Dose = 50 mcg, = 1 tab(s), Oral, qDay, 09/20/22 9:09:00 EST lisinopril, Start: 09/20/22 9:09:00 EST, Dose = 20 mg, = 1 tab(s), Oral, BID, 09/20/22 9:09:00 EST omeprazole, Start: 09/20/22 9:09:00 EST, Dose = 20 mg, = 1 tab(s), Oral, qDay, 09/20/22 9:09:00 EST Sodium Chloride 0.9% intravenous solution 1,000 mL, Start: 09/20/22 5:00:00 EST, 18 hour(s), Stop date 09/20/22 22:59:00 EST, Rate: 20 mL/hr, 09/20/22 5:00:00 EST sotalol, Start: 09/20/22 9:09:00 EST, Dose = 160 mg, = 2 tab(s), Oral, BID, 09/20/22 9:09:00 EST Complete Blood Count Diet Order Discharge Discharge Activity Discharge Diet Discharge Wound Care Discontinue Order Electrocardiogram Electrocardiogram IV Catheter Insertion/Care Prn Adapter Prothrombin Time - Panel Sign Consent Digitally Signed by ERNESTINA VAZQUEZ on 09/20/2022 09:57 AM [facility] 09-20-2022 Summary of episod e note Discharge Instructions Thank you for allowing [facility] to assist you with your healthcare needs. The following is important discharge information regarding your hospital visit. Your Care Team EMILIE SERVIN MD What to do next Scheduled Follow-Up Appointments Appointment Type When Where Contact InformationCV OV 10/04/2022 08:30 AM EST [facility] CV OV 10/31/2022 01:45 PM EST [facility] CV PLANT ETIOLOGIST 12/05/2022 09:30 AM EST [facility] Follow Up Appointments Follow Up with JAVIER KNOX MD When 10/31/2022 01:45 PM EST Where: [address] [facility] [address] [place] [address]- [phone] The Following Activity and Diet Have Been Ordered for You Discharge Activity - Ordered -- Follow the post-operative/post-procedure activity instructions provided by your physician's office., 09/20/22 9:26:00 EST Discharge Diet - Ordered -- Follow the post-operative/post-procedure diet instructions provided by your physician's office., 09/20/22 9:26:00 EST The Following Equipment Has Been Ordered for You Discharge Home Equipment Discharge Wound Care - Ordered -- Follow the post-operative/post-procedure wound care instructions provided by your physician's office., 09/20/22 9:26:00 EST Medications Please ask your primary doctor or pharmacist before taking any other medication not listed, including over the counter drugs, herbal medications, vitamins and or supplements as they may interact with your home medications. What How Much When Instructions Last Dose Unchanged apixaban (Eliquis 5 mg oral tablet) 1 tab(s) by mouth Two (2) times a day Unchanged cholecalciferol (Vitamin D3 50 mcg (2000 intl units) oral capsule) 1 cap by mouth Once a day Unchanged lisinopril (lisinopril 20 mg oral tablet) 1 tab(s) by mouth Two (2) times a day Unchanged omeprazole (omeprazole 20 mg oral delayed release tablet) 1 tab(s) by mouth Once a day Unchanged sotalol (sotalol 160 mg oral tablet) 1 tab(s) by mouth Two (2) times a day Please take this list to your next doctor s visit. Bring all medications you take, including over the counter medications, herbals and other supplements with you to your doctor s visit. Patients and families are reminded to discard old lists and to update any records with all medication providers or retail pharmacies. Education Materials General Anesthesia, Adult, Care After This sheet gives you information about how to care for yourself after your procedure. Your health care provider may also give you more specific instructions. If you have problems or questions, contact your health care provider. What can I expect after the procedure? After the procedure, the following side effects are common: Pain or discomfort at the IV site. Nausea. Vomiting. Sore throat. Trouble concentrating. Feeling cold or chills. Weak or tired. Sleepiness and fatigue. Soreness and body aches. These side effects can affect parts of the body that were not involved in surgery. Follow these instructions at home: For at least 24 hours after the procedure: Have a responsible adult stay with you. It is important to have someone help care for you until you are awake and alert. Rest as needed. Do not: ? Participate in activities in which you could fall or become injured. ? Drive. ? Use heavy machinery. ? Drink alcohol. ? Take sleeping pills or medicines that cause drowsiness. ? Make important decisions or sign legal documents. ? Take care of children on your own. Eating and drinking Follow any instructions from your health care provider about eating or drinking restrictions. When you feel hungry, start by eating small amounts of foods that are soft and easy to digest (bland), such as toast. Gradually return to your regular diet. Drink enough fluid to keep your urine pale yellow. If you vomit, rehydrate by drinking water, juice, or clear broth. General instructions If you have sleep apnea, surgery and certain medicines can increase your risk for breathing problems. Follow instructions from your health care provider about wearing your sleep device: ? Anytime you are sleeping, including during daytime naps. ? While taking prescription pain medicines, sleeping medicines, or medicines that make you drowsy. Return to your normal activities as told by your health care provider. Ask your health care provider what activities are safe for you. Take vouy-ppl-wnktteb and prescription medicines only as told by your health care provider. If you smoke, do not smoke without supervision. Keep all follow-up visits as told by your health care provider. This is important. Contact a health care provider if: You have nausea or vomiting that does not get better with medicine. You cannot eat or drink without vomiting. You have pain that does not get better with medicine. You are unable to pass urine. You develop a skin rash. You have a fever. You have redness around your IV site that gets worse. Get help right away if: You have difficulty breathing. You have chest pain. You have blood in your urine or stool, or you vomit blood. Summary After the procedure, it is common to have a sore throat or nausea. It is also common to feel tired. Have a responsible adult stay with you for the first 24 hours after general anesthesia. It is important to have someone help care for you until you are awake and alert. When you feel hungry, start by eating small amounts of foods that are soft and easy to digest (bland), such as toast. Gradually return to your regular diet. Drink enough fluid to keep your urine pale yellow. Return to your normal activities as told by your health care provider. Ask your health care provider what activities are safe for you. This information is not intended to replace advice given to you by your health care provider. Make sure you discuss any questions you have with your health care provider. Document Released: 01/26/2002 Document Revised: 10/23/2018 Document Reviewed: 06/05/2018 [employer] Patient Education 2020 [employer] CARDIOVERSION Discharge instructions ACTIVITY/SAFETY Please refrain from the following activities for 24 hours: Do not drive a car or operate heavy equipment. Do not consume alcohol for 24 hours. Do not return to work for 24 hours. Postpone signing any important papers or making important decisions. COMFORT Call your primary doctor if you have any redness, tenderness, warmth, discharge or swelling at your IV site. Your chest or back may get red and/or develop a burning sensation. Apply fragrance-free Aloe Vera lotion. Take Tylenol as needed for pain. DIET When you return home, resume your regular diet unless otherwise directed. Some of the sedatives, anesthetic medications you received today may make you nauseated. If vomiting persists, call your doctor. Restart your usual medications unless otherwise instructed by your doctor. If you have any questions, please call your doctor at the number listed on your follow up instructions. Document Released: 10/20/2006 Document Revised: 10/06/2013 Document Reviewed: 10/21/2014 ExitCare Patient Information 2015 [employer] [place]. This information is not intended to replace advice given to you by your health care provider. Make sure you discuss any questions you have with your health care provider. Additional Information VACCINATE! IT SAVES LIVES! Members of the community who have not yet received the COVID-19 vaccine and would like to receive it can visit one of [facility] vaccine clinics. There are many vaccine clinic locations within the [facility]. For locations and available times, please visit [email or web address] [email or web address] It is important to note that some COVID mobile vaccine clinics are held outdoors and may be canceled in rainy or stormy conditions. To learn more about pediatric vaccinations (ages 5-11), we invite you to visit the [facility] webpage. [email or web address]/p [email or web address]-Crznq-Kconhyklqcn-Freq voxjdy-[email or web address]-Xamrhfhno.html To learn more about the COVID-19 vaccine, we invite you to visit the [employer] website for a list of frequently asked questions. [email or web address] [facility] Patient Portal Access Instructions: Stay connected with your healthcare team and access your personal medical information anytime with the [facility] Patient Portal.If you would like a full copy of your medical records, please contact the [facility] Medical Records Department, Friday through Friday between 8a.m. and 4:30p.m. Please follow the directions below to access the portal: 1.Access the email account you provided upon registration to the [facility].2.Look for an invitation email from [facility].3.Open the email and access the invitation link: Accept Invitation to [facility]4.Fill in the required michael to create your account. Sign into [email or web address] with your username and password that you created in the above steps to stay up to date. You can then view a summary of results, a summary of your visits, and the ability to download your summaries to your computer or send the information securely to a physician. Remember that your healthcare information is confidential, so carefully consider who you will allow to register on the [facility] Patient Portal for access to your information. You can also access the [facility] Patient Portal on the [employer] savana. Simply click on Health Records under Health Data and then click on the [facility] logo. HOW TO SAFELY DISPOSE OF PRESCRIPTION MEDICATIONS Please use one of the following methods to safely dispose of your unused medications. 1.Use a drug disposal kit: the drug disposal pouch allows you to safely discard your old and unused drugs. Ask your nurse to give you one when you are discharged.2.Visit a local take-back location: Many local pharmacies and police departments have programs that collect old and unwanted prescription drugs. Call your local pharmacy or go to http://bit.Polybiotics/6N4Zc5w to find one close to you.3.Make use of household items: Use cat litter or old coffee grounds to dispose medications if other options are not available. Mix your drugs with these household products, seal them in an airtight container and throw it into the garbage. Call [facility]: [phone] to be sure your drugs can be disposed of in this way. Some medicines may require a different approach.4.Never flush your medications down the toilet. IF YOU HAVE BEEN PRESCRIBED AN OPIOID FOR PAIN If you have been prescribed an opioid (such as hydrocodone, oxycodone or morphine), it is critical to understand the possible side effects and risks of opioid pain medications. Even when taken as directed, opioids can have several side effects including: Tolerance, meaning you might need to take more of a medication for the same pain relief. Nausea, vomiting and/or constipation. Sleepiness, dizziness, dry mouth, confusion, depression or itching. Physical dependence, meaning you have withdrawal symptoms when a medication is stopped, can develop within a few days. KNOW YOUR RESPONSIBILITIES It is important to know exactly how much and how often to take the opioid pain medications you are prescribed. Never take opioids in higher amounts or more often than prescribed. Do not combine opioids with alcohol or other drugs that cause drowsiness, such as benzodiazepines, also known as benzos, including diazepam and alprazolam, muscle relaxants or sleep aids. Never sell or share prescription opioids. This is illegal. Store opioids in a secure place and out of reach of others (including children, family, friends and visitors). The last page of this document has been signed and retained as a CHART COPY. Signatures Patient Education Materials General Anesthesia, Adult, Care After 3- Cardioversion (08/2018)(CUSTOM) Medication Leaflets My discharge plan and instructions have been reviewed and explained to me and I,MARCY ALEJANDRO understand my current condition and have read and understand these discharge instructions. I have received a written copy of the plan/instructions. If I have questions, I am aware that I should contact my doctor. 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 Family's history: negative. History of Present Illness 72 yr old M pt with afib/aflutter s/p ablation and on Eliquis presents for DCCV. PMH: HTN, GERD. Review of Systems Ear/Nose/Mouth/Throat: Negative except as documented in history of present illness. Respiratory: Negative except as documented in history of present illness. Cardiovascular: Negative except as documented in history of present illness. Gastrointestinal: Negative except as documented in history of present illness. Genitourinary: Negative except as documented in history of present illness. Endocrine: Negative except as documented in history of present illness. Musculoskeletal: Negative except as documented in history of present illness. Integumentary: Negative except as documented in history of present illness. Neurologic: Negative except as documented in history of present illness. Health Status Allergies: Allergic Reactions (Selected) Severity Not Documented Ragweed- Unknown. Sulfa- Unknown., Allergies (2) ActiveReaction RagweedUnknown sulfaUnknown Current medications: (Selected) Inpatient Medications Ordered Sodium Chloride 0.9% intravenous solution 1,000 mL: 20 mL/hr, Intravenous, Stop: 09/20/22 22:59:00 EST Prescriptions Prescribed sotalol 160 mg oral tablet: 160 mg, 1 tab(s), Oral, BID, 180 tab(s), 3 Refill(s) Documented Medications Documented Eliquis 5 mg oral tablet: 5 mg, 1 tab(s), Oral, BID, 0 Refill(s) Vitamin D3 50 mcg (2000 intl units) oral capsule: 50 mcg, 1 cap(s), Oral, qDay, 60 cap(s), 0 Refill(s) lisinopril 20 mg oral tablet: 20 mg, 1 tab(s), Oral, BID, 0 Refill(s) omeprazole 20 mg oral delayed release tablet: 20 mg, 1 tab(s), Oral, qDay, 0 Refill(s), Medications (1) Active Scheduled: (0) Continuous: (1) NS (0.9% nacl) 1,000 mL 1,000 mL, Intravenous, 20 mL/hr PRN: (0) Problem list: Medical Atrial fibrillation / SNOMED CT 53134800 / Confirmed Atrial flutter / SNOMED CT 7847712 / Confirmed Increased BMI / SNOMED CT 10078061 / Confirmed, Active Problems (3) Atrial fibrillation Atrial flutter Increased BMI Histories Past Medical History: No active or resolved past medical history items have been selected or recorded. Family History: Cancer Mother Brother Aortic valve replacement and aortoplasty Father () High blood pressure Mother CABG - Coronary artery bypass graft Father (): onset at 75 . Procedure history: Cardioversion ([id number]) on 08/20/2022 at 72 Years. Comments: 09/11/2022 13:42 Mala Tam LPN IMPRESSION: Successful direct current cardioversion with christian of sinus rhythm from atrial fibrillation with no immediate complication. Cardiovascular stress testing ([id number]) on 06/03/2022 at 71 Years. Comments: 08/07/2022 12:37 Re Larsen MA (ABR-OE) Normal exercise myocardial perfusion stress test at a high workload. Preserved EF. No a-fib during exercise. Echocardiogram ([id number]) on 11/21/2021 at 71 Years. Comments: 08/07/2022 12:38 Re Larsen MA (ABR-OE) Normal LV size EF 57%. MIld mitral valve insufficiency. Stage 2 diastolic dysfunction. Direct current cardioversion ([id number]) on 08/30/2020 at 70 Years. Comments: 08/07/2022 12:40 Re Larsen MA (ABR-OE) Successful DC cardioversion from a-flutter to sinus rhythm Thoracentesis ([id number]) in 2014 at 65 Years. Dilatation of esophageal stricture ([id number]). Tonsillectomy ([id number]). 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 Physical Examination Vital Signs 09/20/2022 7:25 EST Temperature Oral 36.7 DegC Peripheral Pulse Rate 103 bpm HI Respiratory Rate 18 br/min Systolic BP Left Arm 133 mmHg Diastolic BP Left Arm 82 mmHg Systolic Blood Pressure Non-Invasive 133 mmHg Diastolic Blood Pressure Non-Invasive 82 mmHg Vital Signs(last 24 hrs) Last Charted Temp Oral36.7 DegC (SEP 20:) Resp Rate 18 br/min (SEP 20:) PCO171 mmHg (SEP 20:) DBP82 mmHg (SEP 20:) BMI28.49 (SEP 20:) Measurements from flowsheet : Measurements 09/20/2022 7:25 EST Height 180.3 cm Height in inches 71 inch(es) Admission Weight 92.6 kg Weight Lbs 203.7 lb Weight Method Actual [place] Body Weight 75.26 kg Body Mass Index 28.49 kg/m2 Body Mass Index 28.49 kg/m2 Admission Body Mass Index 28.49 m2 Pain assessment: Pain Assessment 09/20/2022 7:25 EST Primary Pain Intensity 0 Pain Scale Type 0-10 Pain scale . General: Alert and oriented, No acute distress. Airway: Normal temporomandibular joint mobility. Mallampati classification: II (soft palate, fauces, uvula visible). Head: Normocephalic, Atraumatic. Dentition Evaluation: Missing teeth. Neck: Supple, Non-tender. Respiratory: Lungs are clear to auscultation, Respirations are non-labored. Cardiovascular: No murmur, irregular rhythm.. Heart Sounds: Normal. Gastrointestinal: Soft, Non-tender. Musculoskeletal Normal range of motion. Normal strength. No swelling. Integumentary: Warm, Dry, No pallor. Neurologic: Alert, Oriented, No focal deficits. Review / Management Results review: No qualifying data available , Lab results 09/20/2022 7:43 EST Electrocardiogram - EKG - CV Completed (In Progress) 09/20/2022 7:35 EST Sodium Chloride 0.9% Begin Bag 1,000 mL mL 09/20/2022 7:34 EST SN - Preop - CTm - Pt in HL SD Room 09/20/2022 7:05 SN - Preop - CTm - HL Pt Ready for Procedure 09/20/2022 7:34 09/20/2022 7:25 EST Designated Person #1 We May Share PHI Jayne Alejandro [phone] cell phone Designated Person #1 Relationship Spouse Designated Person #2 We May Share PHI kassie chan [phone] Designated Person #2 Relationship Daughter Additional Designated Person Share PHI Additional Designated Person Share PHI Privacy Restrictions Requested None Height 180.3 cm Height in inches 71 inch(es) Admission Weight 92.6 kg Weight Lbs 203.7 lb Weight Method Actual [place] Body Weight 75.26 kg Body Mass Index 28.49 kg/m2 Body Mass Index 28.49 kg/m2 Admission Body Mass Index 28.49 m2 Temperature Oral 36.7 DegC Peripheral Pulse Rate 103 bpm HI Respiratory Rate 18 br/min Systolic BP Left Arm 133 mmHg Diastolic BP Left Arm 82 mmHg Systolic Blood Pressure Non-Invasive 133 mmHg Diastolic Blood Pressure Non-Invasive 82 mmHg Primary Pain Intensity 0 Pain Scale Type 0-10 Pain scale Heart Rhythm Irregular Dorsalis Pedis Pulse, Left 2+ Normal Dorsalis Pedis Pulse, Right 2+ Normal Radial Pulse, Left 2+ Normal Radial Pulse, Right 2+ Normal Respirations Unlabored Respiratory Pattern Regular Breath Sounds Auscultated Anterior and posterior All Lobes Breath Sounds Clear Oxygen Therapy Room air Oxygen Saturation 97 % Abdomen Description Non-distended, Symmetric, Soft Abdomen Palpation Non-Tender Status N/A Skin Temperature Warm Skin Description Roths[place], Dry Mucous Membrane Color Rothschild Antecubital Left 09/20/2022 18 gauge Peripheral IV Activity: Insert new site Peripheral IV Dressing Condition: Clean, Dry, Intact Peripheral IV Dressing Activity: Applied, Transparent dressing Peripheral IV Line Status/Patency: Flushes easily Peripheral IV Site Condition: No complications Peripheral IV Equipment: PRN Adaptor Peripheral IV Number of Attempts: 1 Neurological Symptoms Patient denies Extremity Movement Equal Characteristics of Speech Clear Level of Consciousness Alert JAMEY Yes Strength All Extremities Strong Tone All Extremities Normal Sensation All Extremities Intact Affect/Behavior Appropriate, Calm, Cooperative Orientation Oriented x 4 Sensory Deficits Blind, left eye Sleep Apnea Snore No Sleep Apnea Tired No Sleep Apnea Obstruction No Sleep Apnea Pressure Yes Sleep Apnea BMI No Sleep Apnea Age Yes Sleep Apnea Neck No Sleep Apnea Gender Yes Sleep Apnea Score 3 High Risk for Sleep Apnea No Diagnosed With Sleep Apnea No Advanced Directives Yes Advance Directive Type [place] Durable Power of Inside Sales Coordinator for [facility] [employer], [place] Declaration (Living Will) Advance Directive Location Family instructed to bring in copy Infectious Disease Symptoms Patient states no symptoms Infectious Disease Recent Exposure No Alcohol and Drug Use No Employee of Institutional Living No Health Care Employee No History of Exposure to TB No History of Positive Chest X-Ray for TB No History of Positive TB Skin Test No Homeless No Known Immunosuppression No Recent Immigrant No Resident of Institutional Living No Bloody Sputum No Fatigue No Fever No Loss of Appetite No Night Sweats No Persistent Cough > 3 Weeks No Weight Loss No Allergies Yes Consent Form Signed Yes History & Physical Update On Chart Yes History & Physical On Chart Yes Obstructive Sleep Apnea Assess Completed Yes Safety Brochure Information Reviewed Yes [facility] [place] Video Viewed No Individuals Taught Patient, Spouse Learning Readiness Willing to learn Barriers to Learning None evident Teaching Method Printed materials Teaching Evaluation Verbalizes/Nonverbally indicates understanding Preferred Written Language Bulgarian Family/Caregiver Prefer Written Language Bulgarian Preferred Spoken Language Bulgarian Family/Caregiver Prefer Spoken Language Bulgarian General Infection Prevention Strategies Hand hygiene, Remind patient/visitor to mask when w/Healthcare Provider Pre Procedure/Surgery Education Appropriate expectations, Bring glasses, hearing aids, contact lens case, Date/Time of procedure/surgery, Hospital gown requirement worn to OR, Leave valuables, jewelry, wedding ring at home, Meds to take or hold, NPO, 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 Procedure/Surgery Testing Education EKG, Lab tests Information Given by Patient Patient's Current Physicians Patient's Current Physicians Discharge To, Anticipated Home independently Assistive Device None NPO Status Maintained Standard Safety ID band on, Allergy Band on, Call device within reach, Bed in low position, Wheels locked, Upper/Half-Length side-rails up, Phone within reach, personal items within reach, Visitor at bedside Prev Test Positive/Diagnosis w/COVID-19 Yes Previous COVID-19 Positive Date 08/2021 Current Quarantine/Isolated any Illness No Any Contact with Sick Animals/Birds No Traveled Anywhere in Last 30 Days No Allergy Band on and Verified Yes Patient ID Band on and Verified Yes Last Fluid Intake 09/19/2022 21:30 Last Food Intake 09/19/2022 21:30 Lost Weight Unintentionally Recently No Eat Poorly Due to Decreased Appetite Yes Total MST Score 1 N/A Personal Devices, Patient Valuables Glasses Anesthesia/Transfusions Prior anesthesia Admission Note-Nursing Same Day Patient History . Assessment and Plan [place] [employer] Anesthesiologists (ASA) physical status classification: Class III. Anesthetic Preoperative Plan Premedication: intravenous. Anesthetic technique: General. Maintenance airway: Mask. Postoperative pain management: Per surgeon. Risks discussed: nausea, vomiting, sore throat, allergic reaction, serious complications. Informed consent: signed by patient. Digitally Signed by MAYELIN JANSEN MD on 09/20/2022 08:46 AM [facility] 09-17-2022 Hospital Discharg e instructions Patient Education 09/17/2022 10:16:16 3- Cardioversion (08/2018) (CUSTOM) CARDIOVERSION Discharge instructions ACTIVITY/SAFETY Please refrain from the following activities for 24 hours: Do not drive a car or operate heavy equipment. Do not consume alcohol for 24 hours. Do not return to work for 24 hours. Postpone signing any important papers or making important decisions. COMFORT Call your primary doctor if you have any redness, tenderness, warmth, discharge or swelling at your IV site. Your chest or back may get red and/or develop a burning sensation. Apply fragrance-free Aloe Vera lotion. Take Tylenol as needed for pain. DIET When you return home, resume your regular diet unless otherwise directed. Some of the sedatives, anesthetic medications you received today may make you nauseated. If vomiting persists, call your doctor. Restart your usual medications unless otherwise instructed by your doctor. If you have any questions, please call your doctor at the number listed on your follow up instructions. Document Released: 10/20/2006 Document Revised: 10/06/2013 Document Reviewed: 10/21/2014 ExitCare Patient Information 2015 [employer]. This information is not intended to replace advice given to you by your health care provider. Make sure you discuss any questions you have with your health care provider. Follow Up Care 09/16/2022 08:52:15 With:JAVIER KNOX MD Address: [address] [place] [address] [place] [address]- [phone] When:10/31/2022 13:45:00 [facility] 09-17-2022 Discharge summary Date of Service September 17, 2022 Shared/Split visit with Dr. Knox Discharge Diagnosis Atrial fibrillation (I48.91 - ICD-10-CM) Ordered: sotalol 120 mg oral tablet; Start: 09/17/22 9:50:00 EST, Dose = 120 mg, = 1 tab(s), Oral, BID, 09/17/22 9:50:00 EST Hospital Course This is a 72-year-old male who was recently evaluated in office by Dr. Knox for recurring atrial flutter with debilitating symptoms. Plan of management was to undergo ablative therapies. Patient underwent ablative therapies on September 13, 2022. Noted to be in A. fib still post ablation. And plan was to move forward with direct-current cardioversion. Patient presents for direct-current cardioversion on September 17, 2022 in a fasting well-hydrated state. Presenting rhythm was atrial fibrillation a heart rate of 108 bpm. Once a MEDICAL PHYSICS PROFESSOR administered an IV anesthetic agent the patient was fully sedated anterior-posterior patch ritualizing synchronized biphasic waveform at 150 J, 200 J both noted early return of atrial fibrillation. A third and final attempt with anterior patch repositioning to anterior left chest wall at 200 J with anterior direct pressure yield the same results with conversion pause, 1-2 beats of sinus rhythm, PVC followed by return of A. fib/atrial flutter at a heart rate of approximately 110 bpm. There was concern about his current medical therapies. With medications listed that he has been alternating between flecainide, amiodarone and is now currently on sotalol therapy. I will increase sotalol only to 160 mg twice a day. He will not continue on flecainide or amiodarone. We will plan for repeat direct-current cardioversion on max dose of sotalol therapy later this week to restore normal sinus rhythm. The patient tolerated the procedure well returned to cardiac same-day in good condition. Patient will follow-up with repeat direct-current cardioversion later this week to try to restore normal sinus rhythm. Allergies Ragweed (Unknown) sulfa (Unknown) Procedures [facility] - 09/17/2022 Consults No qualifying data available. Objective Vitals and Measurements T: 36.0 C (Skin) TMIN: 36.0 C (Skin) TMAX: 36.7 C (Tympanic) HR: 92(Apical) RR: 18 BP: 108/72 BP: 127/77(Left Arm) SpO2: 96% HT: 180.3 cm WT: 93.3 kg BMI: 28.7 BMI: 28.7 Weight Dosing Weight: 93.3 kg (09/17/22) Pending Labs and Studies EKG prior to discharge Code Status No qualifying data available. Admission Date September 17, 2022 Discharge Date September 17, 2022 Patient Instructions No driving for today. Patient may resume prior diet and activity tomorrow. Medications Changed sotalol (sotalol 160 mg oral tablet)1 tab(s) by mouth two (2) times a day. Refills: 3. Unchanged apixaban (Eliquis 5 mg oral tablet)1 tab(s) by mouth two (2) times a day. cholecalciferol (Vitamin D3 50 mcg (2000 intl units) oral capsule)1 cap by mouth once a day. lisinopril (lisinopril 20 mg oral tablet)1 tab(s) by mouth two (2) times a day. omeprazole (omeprazole 20 mg oral delayed release tablet)1 tab(s) by mouth once a day. Follow Up Follow Up with JAVIER KNOX MD When 10/31/2022 01:45 PM EST Where: [address] [facility] [address] [facility] [place] [place] [address]- [phone] Condition on Discharge Stable Digitally Signed by ERNESTINA VAZQUEZ on 09/17/2022 10:38 AM [facility] 09-17-2022 Cardiology procedure note Date of Service September 17, 2022 Procedure Name Direct-current cardioversion Referring Provider Dr. Knox Consent Informed consent was obtained by nursing and anesthesia personnel Indication AF/AFL Location CVOR Technique This is a 72-year-old male who was recently evaluated in office by Dr. Knox for recurring atrial flutter with debilitating symptoms. Plan of management was to undergo ablative therapies. Patient underwent ablative therapies on September 13, 2022. Noted to be in A. fib still post ablation. And plan was to move forward with direct-current cardioversion. Patient presents for direct-current cardioversion on September 17, 2022 in a fasting well-hydrated state. Presenting rhythm was atrial fibrillation a heart rate of 108 bpm. Once a MEDICAL PHYSICS PROFESSOR administered an IV anesthetic agent the patient was fully sedated anterior-posterior patch ritualizing synchronized biphasic waveform at 150 J, 200 J both noted early return of atrial fibrillation. A third and final attempt with anterior patch repositioning to anterior left chest wall at 200 J with anterior direct pressure yield the same results with conversion pause, 1-2 beats of sinus rhythm, PVC followed by return of A. fib/atrial flutter at a heart rate of approximately 110 bpm. There was concern about his current medical therapies. With medications listed that he has been alternating between flecainide, amiodarone and is now currently on sotalol therapy. I will increase sotalol only to 160 mg twice a day. He will not continue on flecainide or amiodarone. We will plan for repeat direct-current cardioversion on max dose of sotalol therapy later this week to restore normal sinus rhythm. The patient tolerated the procedure well returned to cardiac same-day in good condition. Patient will follow-up with repeat direct-current cardioversion later this week to try to restore normal sinus rhythm. Assessment/Plan Atrial fibrillation Ordered: sotalol, Start: 09/17/22 9:50:00 EST, Dose = 120 mg, = 1 tab(s), Oral, BID, 09/17/22 9:50:00 EST Orders: apixaban, Start: 09/17/22 9:50:00 EST, Dose = 5 mg, = 1 tab(s), Oral, BID, Indication for Use Persistant atrial fibrillation, 09/17/22 9:50:00 EST cholecalciferol, Start: 09/17/22 9:50:00 EST, Dose = 50 mcg, = 1 tab(s), Oral, qDay, 09/17/22 9:50:00 EST lisinopril, Start: 09/17/22 9:50:00 EST, Dose = 20 mg, = 1 tab(s), Oral, BID, 09/17/22 9:50:00 EST omeprazole, Start: 09/17/22 9:50:00 EST, Dose = 20 mg, = 1 tab(s), Oral, qDay, 09/17/22 9:50:00 EST sotalol, Dose : 160 mg = 1 tab(s), Oral, BID, # 180 tab(s), 3 Refill(s), Pharmacy: [facility]/pharmacy #[id number], 180.3, cm, 09/17/22 7:56:00 EST, Height Diet Order Discharge Discharge Activity Discharge Diet Discharge Wound Care Discontinue Order Electrocardiogram Digitally Signed by ERNESTINA VAZQUEZ on 09/17/2022 10:37 AM [facility] 09-17-2022 Summary of episod e note Discharge Instructions Thank you for allowing [facility] to assist you with your healthcare needs. The following is important discharge information regarding your hospital visit. Your Care Team EMILIE SERVIN MD Your Diagnosis Atrial fibrillation What to do next Scheduled Follow-Up Appointments Appointment Type When Where Contact InformationCV OV 10/31/2022 01:45 PM EST [facility] CV PLANT ETIOLOGIST 12/05/2022 09:30 AM EST [facility] Follow Up Appointments Follow Up with JAVIER KNOX MD When 10/31/2022 01:45 PM EST Where: [address] [place] [address]- [phone] The Following Activity and Diet Have Been Ordered for You Discharge Activity - Ordered -- Follow the post-operative/post-procedure activity instructions provided by your physician's office., 09/17/22 10:01:00 EST Discharge Diet - Ordered -- Follow the post-operative/post-procedure diet instructions provided by your physician's office., 09/17/22 10:01:00 EST Allergies Ragweed (Unknown) sulfa (Unknown) Medications Please ask your primary doctor or pharmacist before taking any other medication not listed, including over the counter drugs, herbal medications, vitamins and or supplements as they may interact with your home medications. What How Much When Instructions Last Dose Changed sotalol (sotalol 160 mg oral tablet) 1 tab(s) by mouth Two (2) times a day Pickup at [facility]/pharmacy #[id number] Unchanged apixaban (Eliquis 5 mg oral tablet) 1 tab(s) by mouth Two (2) times a day Unchanged cholecalciferol (Vitamin D3 50 mcg (2000 intl units) oral capsule) 1 cap by mouth Once a day Unchanged lisinopril (lisinopril 20 mg oral tablet) 1 tab(s) by mouth Two (2) times a day Unchanged omeprazole (omeprazole 20 mg oral delayed release tablet) 1 tab(s) by mouth Once a day Pharmacy Information [facility]/pharmacy #[id number]: [address] [place], [place] [id number] [phone] Please take this list to your next doctor s visit. Bring all medications you take, including over the counter medications, herbals and other supplements with you to your doctor s visit. Patients and families are reminded to discard old lists and to update any records with all medication providers or retail pharmacies. Education Materials CARDIOVERSION Discharge instructions ACTIVITY/SAFETY Please refrain from the following activities for 24 hours: Do not drive a car or operate heavy equipment. Do not consume alcohol for 24 hours. Do not return to work for 24 hours. Postpone signing any important papers or making important decisions. COMFORT Call your primary doctor if you have any redness, tenderness, warmth, discharge or swelling at your IV site. Your chest or back may get red and/or develop a burning sensation. Apply fragrance-free Aloe Vera lotion. Take Tylenol as needed for pain. DIET When you return home, resume your regular diet unless otherwise directed. Some of the sedatives, anesthetic medications you received today may make you nauseated. If vomiting persists, call your doctor. Restart your usual medications unless otherwise instructed by your doctor. If you have any questions, please call your doctor at the number listed on your follow up instructions. Document Released: 10/20/2006 Document Revised: 10/06/2013 Document Reviewed: 10/21/2014 ExitCare Patient Information 2015 [employer]. This information is not intended to replace advice given to you by your health care provider. Make sure you discuss any questions you have with your health care provider. Additional Information VACCINATE! IT SAVES LIVES! Members of the community who have not yet received the COVID-19 vaccine and would like to receive it can visit one of [facility] vaccine clinics. There are many vaccine clinic locations within the [facility]. For locations and available times, please visit [email or web address].o hio.gov/. It is important to note that some COVID mobile vaccine clinics are held outdoors and may be canceled in rainy or stormy conditions. To learn more about pediatric vaccinations (ages 5-11), we invite you to visit the [facility] webpage. [email or web address] [email or web address] To learn more about the COVID-19 vaccine, we invite you to visit the [facility] website for a list of frequently asked questions. [email or web address] [facility] Patient Portal Access Instructions: Stay connected with your healthcare team and access your personal medical information anytime with the [facility] Patient Portal.If you would like a full copy of your medical records, please contact the [facility] Medical Records Department, Friday through Friday between 8a.m. and 4:30p.m. Please follow the directions below to access the portal: 1.Access the email account you provided upon registration to the [facility].2.Look for an invitation email from [facility].3.Open the email and access the invitation link: Accept Invitation to [facility]4.Fill in the required michael to create your account. Sign into [email or web address] with your username and password that you created in the above steps to stay up to date. You can then view a summary of results, a summary of your visits, and the ability to download your summaries to your computer or send the information securely to a physician. Remember that your healthcare information is confidential, so carefully consider who you will allow to register on the [facility] Patient Portal for access to your information. You can also access the [facility] Patient Portal on the [employer] savana. Simply click on Health Records under Health Data and then click on the [facility] logo. HOW TO SAFELY DISPOSE OF PRESCRIPTION MEDICATIONS Please use one of the following methods to safely dispose of your unused medications. 1.Use a drug disposal kit: the drug disposal pouch allows you to safely discard your old and unused drugs. Ask your nurse to give you one when you are discharged.2.Visit a local take-back location: Many local pharmacies and police departments have programs that collect old and unwanted prescription drugs. Call your local pharmacy or go to http://Exercise the World.Polybiotics/9Y5Je7n to find one close to you.3.Make use of household items: Use cat litter or old coffee grounds to dispose medications if other options are not available. Mix your drugs with these household products, seal them in an airtight container and throw it into the garbage. Call [facility]: [phone] to be sure your drugs can be disposed of in this way. Some medicines may require a different approach.4.Never flush your medications down the toilet. IF YOU HAVE BEEN PRESCRIBED AN OPIOID FOR PAIN If you have been prescribed an opioid (such as hydrocodone, oxycodone or morphine), it is critical to understand the possible side effects and risks of opioid pain medications. Even when taken as directed, opioids can have several side effects including: Tolerance, meaning you might need to take more of a medication for the same pain relief. Nausea, vomiting and/or constipation. Sleepiness, dizziness, dry mouth, confusion, depression or itching. Physical dependence, meaning you have withdrawal symptoms when a medication is stopped, can develop within a few days. KNOW YOUR RESPONSIBILITIES It is important to know exactly how much and how often to take the opioid pain medications you are prescribed. Never take opioids in higher amounts or more often than prescribed. Do not combine opioids with alcohol or other drugs that cause drowsiness, such as benzodiazepines, also known as benzos, including diazepam and alprazolam, muscle relaxants or sleep aids. Never sell or share prescription opioids. This is illegal. Store opioids in a secure place and out of reach of others (including children, family, friends and visitors). The last page of this document has been signed and retained as a CHART COPY. Signatures Patient Education Materials 3- Cardioversion (08/2018) (CUSTOM) Medication Leaflets My discharge plan and instructions have been reviewed and explained to me and I,MARCY ALEJANDRO understand my current condition and have read and understand these discharge instructions. I have received a written copy of the plan/instructions. If I have questions, I am aware that I should contact my doctor. Patient/Oriental Medicine Practitioner Signature: Date/Time: Relationship to Patient: Witness Name/Signature: Date/Time: [facility] 09-17-2022 Anesthesiology Consult note Patient: MARCY ALEJANDRO Age: 72 years Sex: Male : 1950 Associated Diagnoses: None Author: MAYELIN JANSEN MD Preoperative Information Time of last food or liquid consumption: 09/16/2022 23:00:00 Anesthesia history Patient's history: negative. Family's history: negative. History of Present Illness 72 yr old M pt with afib/aflutter s/p ablation and on Eliquis presents for DCCV. PMH: HTN, GERD. Review of Systems Ear/Nose/Mouth/Throat: Negative except as documented in history of present illness. Respiratory: Negative except as documented in history of present illness. Cardiovascular: Negative except as documented in history of present illness. Gastrointestinal: Negative except as documented in history of present illness. Genitourinary: Negative except as documented in history of present illness. Endocrine: Negative except as documented in history of present illness. Musculoskeletal: Negative except as documented in history of present illness. Integumentary: Negative except as documented in history of present illness. Neurologic: Negative except as documented in history of present illness. Health Status Allergies: Allergic Reactions (Selected) Severity Not Documented Ragweed- Unknown. Sulfa- Unknown., Allergies (2) ActiveReaction RagweedUnknown sulfaUnknown Current medications: (Selected) Inpatient Medications Ordered Sodium Chloride 0.9% intravenous solution 1,000 mL: 20 mL/hr, Intravenous Prescriptions Prescribed sotalol 120 mg oral tablet: 120 mg, 1 tab(s), Oral, BID, 60 tab(s), 11 Refill(s) Documented Medications Documented Eliquis 5 mg oral tablet: 5 mg, 1 tab(s), Oral, BID, 0 Refill(s) Vitamin D3 50 mcg (2000 intl units) oral capsule: 50 mcg, 1 cap(s), Oral, qDay, 60 cap(s), 0 Refill(s) lisinopril 20 mg oral tablet: 20 mg, 1 tab(s), Oral, BID, 0 Refill(s) omeprazole 20 mg oral delayed release tablet: 20 mg, 1 tab(s), Oral, qDay, 0 Refill(s), Medications (1) Active Scheduled: (0) Continuous: (1) NS (0.9% nacl) 1,000 mL 1,000 mL, Intravenous, 20 mL/hr PRN: (0) Problem list: Medical Atrial fibrillation / SNOMED CT 85260435 / Confirmed Atrial flutter / SNOMED CT 6559987 / Confirmed Increased BMI / SNOMED CT 23760696 / Confirmed, Active Problems (3) Atrial fibrillation Atrial flutter Increased BMI Histories Past Medical History: No active or resolved past medical history items have been selected or recorded. Family History: Cancer Mother Brother Aortic valve replacement and aortoplasty Father () High blood pressure Mother CABG - Coronary artery bypass graft Father (): onset at 75 . Procedure history: Cardioversion ([id number]) on 08/20/2022 at 72 Years. Comments: 09/11/2022 13:42 Mala Tam LPN IMPRESSION: Successful direct current cardioversion with christian of sinus rhythm from atrial fibrillation with no immediate complication. Cardiovascular stress testing ([id number]) on 06/03/2022 at 71 Years. Comments: 08/07/2022 12:37 Re Larsen MA (ABR-OE) Normal exercise myocardial perfusion stress test at a high workload. Preserved EF. No a-fib during exercise. Echocardiogram ([id number]) on 11/21/2021 at 71 Years. Comments: 08/07/2022 12:38 Re Larsen MA (ABR-OE) Normal LV size EF 57%. MIld mitral valve insufficiency. Stage 2 diastolic dysfunction. Direct current cardioversion ([id number]) on 08/30/2020 at 70 Years. Comments: 08/07/2022 12:40 Re Larsen MA (ABR-OE) Successful DC cardioversion from a-flutter to sinus rhythm Thoracentesis ([id number]) in 2015 at 65 Years. Dilatation of esophageal stricture ([id number]). Tonsillectomy ([id number]). 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 Physical Examination Vital Signs 09/17/2022 7:56 EST Temperature Tympanic 36.7 DegC Peripheral Pulse Rate 91 bpm Respiratory Rate 18 br/min Systolic BP Left Arm 127 mmHg Diastolic BP Left Arm 77 mmHg No qualifying data available Pain assessment: Self-reports no pain. General: Alert and oriented, No acute distress. Airway: Normal temporomandibular joint mobility. Mallampati classification: II (soft palate, fauces, uvula visible). Head: Normocephalic, Atraumatic. Dentition Evaluation: Missing teeth. Neck: Supple, Non-tender. Respiratory: Lungs are clear to auscultation, Respirations are non-labored. Cardiovascular: irregular rhythm, tachycardic.. Heart Sounds: Normal. Gastrointestinal: Soft, Non-tender. Musculoskeletal Normal range of motion. Normal strength. No swelling. Integumentary: Intact, Warm, No rash. Neurologic: Alert, Oriented, No focal deficits. Review / Management Results review: No qualifying data available , Lab results 09/16/2022 14:06 EST Transition of Care Note Transition of Care sent from [facility] 09/16/2022 8:54 EST Message Pre Certification Worksheet-STAT 09/16/2022 8:37 EST CSummary CSUMMARMack . Assessment and Plan [place] [employer] Anesthesiologists (ASA) physical status classification: Class III. Anesthetic Preoperative Plan Premedication: intravenous. Anesthetic technique: General. Maintenance airway: Mask. Postoperative pain management: Per surgeon. Risks discussed: nausea, vomiting, sore throat, allergic reaction, serious complications. Informed consent: signed by patient. Digitally Signed by MAYELIN JANSEN MD on 09/17/2022 08:54 AM [facility] 09-15-2022 Hospital Discharg e instructions Patient Education 09/15/2022 12:15:11 Cardiac Ablation, Care After Cardiac Ablation, Care After This sheet gives you information about how to care for yourself after your procedure. Your health care provider may also give you more specific instructions. If you have problems or questions, contact your health care provider. What can I expect after the procedure? After the procedure, it is common to have: Bruising around your puncture site. Tenderness around your puncture site. Skipped heartbeats. Tiredness (fatigue). Follow these instructions at home: Puncture site care Follow instructions from your health care provider about how to take care of your puncture site. Make sure you: ?Wash your hands with soap and water before you change your bandage (dressing). If soap and water are not available, use hand client analyst. ?Change your dressing as told by your health care provider. ?Leave stitches (sutures), skin glue, or adhesive strips in place. These skin closures may need to stay in place for up to 2 weeks. If adhesive strip edges start to loosen and curl up, you may trim the loose edges. Do not remove adhesive strips completely unless your health care provider tells you to do that. Check your puncture site every day for signs of infection. Check for: ?Redness, swelling, or pain. ?Fluid or blood. If your puncture site starts to bleed, lie down on your back, apply firm pressure to the area, and contact your health care provider. ?Warmth. ?Pus or a bad smell. Driving Ask your health care provider when it is safe for you to drive again after the procedure. Do not drive or use heavy machinery while taking prescription pain medicine. Do not drive for 24 hours if you were given a medicine to help you relax (sedative) during your procedure. Activity Avoid activities that take a lot of effort for at least 3 days after your procedure. Do not lift anything that is heavier than 10 lb (4.5 kg), or the limit that you are told, until your health care provider says that it is safe. Return to your normal activities as told by your health care provider. Ask your health care provider what activities are safe for you. General instructions Take wwwj-fat-eexgilf and prescription medicines only as told by your health care provider. Do not use any products that contain nicotine or tobacco, such as cigarettes and e-cigarettes. If you need help quitting, ask your health care provider. Do not take baths, swim, or use a hot tub until your health care provider approves. Do not drink alcohol for 24 hours after your procedure. Keep all follow-up visits as told by your health care provider. This is important. Contact a health care provider if: You have redness, mild swelling, or pain around your puncture site. You have fluid or blood coming from your puncture site that stops after applying firm pressure to the area. Your puncture site feels warm to the touch. You have pus or a bad smell coming from your puncture site. You have a fever. You have chest pain or discomfort that spreads to your neck, jaw, or arm. You are sweating a lot. You feel nauseous. You have a fast or irregular heartbeat. You have shortness of breath. You are dizzy or light-headed and feel the need to lie down. You have pain or numbness in the arm or leg closest to your puncture site. Get help right away if: Your puncture site suddenly swells. Your puncture site is bleeding and the bleeding does not stop after applying firm pressure to the area. These symptoms may represent a serious problem that is an emergency. Do not wait to see if the symptoms will go away. Get medical help right away. Call your local emergency services (911 in the [place] Do not drive yourself to the hospital. Summary After the procedure, it is normal to have bruising and tenderness at the puncture site in your groin, neck, or forearm. Check your puncture site every day for signs of infection. Get help right away if your puncture site is bleeding and the bleeding does not stop after applying firm pressure to the area. This is a medical emergency. This information is not intended to replace advice given to you by your health care provider. Make sure you discuss any questions you have with your health care provider. Document Released: 01/29/2018 Document Revised: 10/02/2018 Document Reviewed: 01/29/2018 [employer] Patient Education 2020 [employer] 09/15/2022 12:13:44 Atrial Fibrillation, Ctrp-yg-Rerf Atrial Fibrillation Atrial fibrillation is a condition that causes your heart to beat irregularly. It may also cause your heart to beat faster than normal. Atrial fibrillation can prevent your heart from pumping blood normally. It increases your risk of stroke and heart problems. HOME CARE Take medications as told by your doctor. Only take medications that your doctor says are safe. Some medications can make the condition worse or happen again. If blood thinners were prescribed by your doctor, take them exactly as told. Too much can cause bleeding. Too little and you will not have the needed protection against stroke and other problems. Perform blood tests at home if told by your doctor. Perform blood tests exactly as told by your doctor. Do not drink alcohol. Do not drink beverages with caffeine such as coffee, soda, and some teas. Maintain a healthy weight. Do not use diet pills unless your doctor says they are safe. They may make heart problems worse. Follow diet instructions as told by your doctor. Exercise regularly as told by your doctor. Keep all follow-up appointments. GET HELP RIGHT AWAY IF: You have chest or belly (abdominal) pain. You feel sick to your stomach (nauseous) You suddenly have swollen feet and ankles. You feel dizzy. You face, arms, or legs feel numb or weak. There is a change in your vision or speech. You notice a change in the speed, rhythm, or strength of your heartbeat. You suddenly begin peeing (urinating) more often. You get tired more easily when moving or exercising. MAKE SURE YOU: Understand these instructions. Will watch your condition. Will get help right away if you are not doing well or get worse. Document Released: 07/29/2009 Document Revised: 02/14/2014 Document Reviewed: 11/30/2013 ExitCare Patient Information 2015 [employer]. This information is not intended to replace advice given to you by your health care provider. Make sure you discuss any questions you have with your health care provider. Follow Up Care 09/12/2022 12:02:37 With:JAVIER KNOX MD Address: [address] [facility] [place] [address]- [phone] When:12/05/2022 09:30:00 [facility] 09-15-2022 Note Discharge Instructions Thank you for allowing [facility] to assist you with your healthcare needs. The following is important discharge information regarding your hospital visit. Your Care Team EMILIE SERVIN MD Your Diagnosis Atrial fibrillation What to do next Scheduled Follow-Up Appointments Appointment Type When Where Contact InformationCV PLANT ETIOLOGIST 12/05/2022 09:30 AM EST [facility] Follow Up Appointments Follow Up with JAVIER KNOX MD When 12/05/2022 09:30 AM EST Where: [address] [place] [address]- [phone] The Following Activity and Diet Have Been Ordered for You Discharge Activity - Ordered -- May Shower, No heavy lifting for 3 days (nothing > 25 lbs), 09/13/22 22:18:00 EST Discharge Activity - Ordered -- May Shower, No heavy lifting for 3 days, 09/15/22 11:26:00 EST No qualifying data available. The Following Equipment Has Been Ordered for You Discharge Home Equipment Discharge Communication Order - Ordered -- We will arrange for a cardioversion early this Week. Please have patient take nothing by mouth except meds on Friday morning. Important to take meds with small sip of water. My nurse will call him. Thanks., 09/15/22 11:28:15 EST The Following Treatments Have Been Ordered for You Discharge Labs No qualifying data available. Discharge Radiology No qualifying data available. Other Therapies No qualifying data available. Post Acute Orders No qualifying data available. Someone Will Contact You Regarding These Home Health Referrals No home referrals have been ordered for you. No one will call you. Allergies Ragweed (Unknown) sulfa (Unknown) Medications Please ask your primary doctor or pharmacist before taking any other medication not listed, including over the counter drugs, herbal medications, vitamins and or supplements as they may interact with your home medications. What How Much When Why Instructions Last Dose New sotalol (sotalol 120 mg oral tablet) 1 tab(s) by mouth Two (2) times a day Atrial fibrillation Refills: 11 Pickup at [facility]/pharmacy #[id number] Unchanged apixaban (Eliquis 5 mg oral tablet) 1 tab(s) by mouth Two (2) times a day Unchanged cholecalciferol (Vitamin D3 50 mcg (2000 intl units) oral capsule) 1 cap by mouth Once a day Unchanged lisinopril (lisinopril 20 mg oral tablet) 1 tab(s) by mouth Two (2) times a day Unchanged omeprazole (omeprazole 20 mg oral delayed release tablet) 1 tab(s) by mouth Once a day Pharmacy Information [facility]/pharmacy #[id number]: [address], [place] [id number] [phone] What How Much When Comments Stop Taking flecainide (flecainide 100 mg oral tablet) 1 tab(s) by mouth Every 12 hours Duration: 30 Days Please take this list to your next doctor s visit. Bring all medications you take, including over the counter medications, herbals and other supplements with you to your doctor s visit. Patients and families are reminded to discard old lists and to update any records with all medication providers or retail pharmacies. Education Materials Cardiac Ablation, Care After This sheet gives you information about how to care for yourself after your procedure. Your health care provider may also give you more specific instructions. If you have problems or questions, contact your health care provider. What can I expect after the procedure? After the procedure, it is common to have: Bruising around your puncture site. Tenderness around your puncture site. Skipped heartbeats. Tiredness (fatigue). Follow these instructions at home: Puncture site care Follow instructions from your health care provider about how to take care of your puncture site. Make sure you: ? Wash your hands with soap and water before you change your bandage (dressing). If soap and water are not available, use hand client analyst. ? Change your dressing as told by your health care provider. ? Leave stitches (sutures), skin glue, or adhesive strips in place. These skin closures may need to stay in place for up to 2 weeks. If adhesive strip edges start to loosen and curl up, you may trim the loose edges. Do not remove adhesive strips completely unless your health care provider tells you to do that. Check your puncture site every day for signs of infection. Check for: ? Redness, swelling, or pain. ? Fluid or blood. If your puncture site starts to bleed, lie down on your back, apply firm pressure to the area, and contact your health care provider. ? Warmth. ? Pus or a bad smell. Driving Ask your health care provider when it is safe for you to drive again after the procedure. Do not drive or use heavy machinery while taking prescription pain medicine. Do not drive for 24 hours if you were given a medicine to help you relax (sedative) during your procedure. Activity Avoid activities that take a lot of effort for at least 3 days after your procedure. Do not lift anything that is heavier than 10 lb (4.5 kg), or the limit that you are told, until your health care provider says that it is safe. Return to your normal activities as told by your health care provider. Ask your health care provider what activities are safe for you. General instructions Take lbsj-yme-ozipqki and prescription medicines only as told by your health care provider. Do not use any products that contain nicotine or tobacco, such as cigarettes and e-cigarettes. If you need help quitting, ask your health care provider. Do not take baths, swim, or use a hot tub until your health care provider approves. Do not drink alcohol for 24 hours after your procedure. Keep all follow-up visits as told by your health care provider. This is important. Contact a health care provider if: You have redness, mild swelling, or pain around your puncture site. You have fluid or blood coming from your puncture site that stops after applying firm pressure to the area. Your puncture site feels warm to the touch. You have pus or a bad smell coming from your puncture site. You have a fever. You have chest pain or discomfort that spreads to your neck, jaw, or arm. You are sweating a lot. You feel nauseous. You have a fast or irregular heartbeat. You have shortness of breath. You are dizzy or light-headed and feel the need to lie down. You have pain or numbness in the arm or leg closest to your puncture site. Get help right away if: Your puncture site suddenly swells. Your puncture site is bleeding and the bleeding does not stop after applying firm pressure to the area. These symptoms may represent a serious problem that is an emergency. Do not wait to see if the symptoms will go away. Get medical help right away. Call your local emergency services (911 in the [place] Do not drive yourself to the hospital. Summary After the procedure, it is normal to have bruising and tenderness at the puncture site in your groin, neck, or forearm. Check your puncture site every day for signs of infection. Get help right away if your puncture site is bleeding and the bleeding does not stop after applying firm pressure to the area. This is a medical emergency. This information is not intended to replace advice given to you by your health care provider. Make sure you discuss any questions you have with your health care provider. Document Released: 01/29/2018 Document Revised: 10/02/2018 Document Reviewed: 01/29/2018 [employer] Patient Education 2020 [employer]. Atrial Fibrillation Atrial fibrillation is a condition that causes your heart to beat irregularly. It may also cause your heart to beat faster than normal. Atrial fibrillation can prevent your heart from pumping blood normally. It increases your risk of stroke and heart problems. HOME CARE Take medications as told by your doctor. Only take medications that your doctor says are safe. Some medications can make the condition worse or happen again. If blood thinners were prescribed by your doctor, take them exactly as told. Too much can cause bleeding. Too little and you will not have the needed protection against stroke and other problems. Perform blood tests at home if told by your doctor. Perform blood tests exactly as told by your doctor. Do not drink alcohol. Do not drink beverages with caffeine such as coffee, soda, and some teas. Maintain a healthy weight. Do not use diet pills unless your doctor says they are safe. They may make heart problems worse. Follow diet instructions as told by your doctor. Exercise regularly as told by your doctor. Keep all follow-up appointments. GET HELP RIGHT AWAY IF: You have chest or belly (abdominal) pain. You feel sick to your stomach (nauseous) You suddenly have swollen feet and ankles. You feel dizzy. You face, arms, or legs feel numb or weak. There is a change in your vision or speech. You notice a change in the speed, rhythm, or strength of your heartbeat. You suddenly begin peeing (urinating) more often. You get tired more easily when moving or exercising. MAKE SURE YOU: Understand these instructions. Will watch your condition. Will get help right away if you are not doing well or get worse. Document Released: 07/29/2009 Document Revised: 02/14/2014 Document Reviewed: 11/30/2013 ExitCare Patient Information 2015 [employer]. This information is not intended to replace advice given to you by your health care provider. Make sure you discuss any questions you have with your health care provider. Additional Information VACCINATE! IT SAVES LIVES! Members of the community who have not yet received the COVID-19 vaccine and would like to receive it can visit one of [facility] vaccine clinics. There are many vaccine clinic locations within the [facility]. For locations and available times, please visit [email or web address] It is important to note that some COVID mobile vaccine clinics are held outdoors and may be canceled in rainy or stormy conditions. To learn more about pediatric vaccinations (ages 5-11), we invite you to visit the [facility] webpage. [email or web address] To learn more about the COVID-19 vaccine, we invite you to visit the [facility] website for a list of frequently asked questions. [email or web address] [facility] Patient Portal Access Instructions: Stay connected with your healthcare team and access your personal medical information anytime with the [facility] Patient Portal.If you would like a full copy of your medical records, please contact the [facility] Medical Records Department, Friday through Friday between 8a.m. and 4:30p.m. Please follow the directions below to access the portal: 1.Access the email account you provided upon registration to the [facility].2.Look for an invitation email from [facility].3.Open the email and access the invitation link: Accept Invitation to [facility].Fill in the required michael to create your account. Sign into [email or web address] with your username and password that you created in the above steps to stay up to date. You can then view a summary of results, a summary of your visits, and the ability to download your summaries to your computer or send the information securely to a physician. Remember that your healthcare information is confidential, so carefully consider who you will allow to register on the [facility] Patient Portal for access to your information. You can also access the [facility] Patient Portal on the [employer] savana. Simply click on Health Records under Health Data and then click on the [employer] logo. HOW TO SAFELY DISPOSE OF PRESCRIPTION MEDICATIONS Please use one of the following methods to safely dispose of your unused medications. 1.Use a drug disposal kit: the drug disposal pouch allows you to safely discard your old and unused drugs. Ask your nurse to give you one when you are discharged.2.Visit a local take-back location: Many local pharmacies and police departments have programs that collect old and unwanted prescription drugs. Call your local pharmacy or go to http://[employer]/5U7Jp2h to find one close to you.3.Make use of household items: Use cat litter or old coffee grounds to dispose medications if other options are not available. Mix your drugs with these household products, seal them in an airtight container and throw it into the garbage. Call [facility]: [phone] to be sure your drugs can be disposed of in this way. Some medicines may require a different approach.4.Never flush your medications down the toilet. IF YOU HAVE BEEN PRESCRIBED AN OPIOID FOR PAIN If you have been prescribed an opioid (such as hydrocodone, oxycodone or morphine), it is critical to understand the possible side effects and risks of opioid pain medications. Even when taken as directed, opioids can have several side effects including: Tolerance, meaning you might need to take more of a medication for the same pain relief. Nausea, vomiting and/or constipation. Sleepiness, dizziness, dry mouth, confusion, depression or itching. Physical dependence, meaning you have withdrawal symptoms when a medication is stopped, can develop within a few days. KNOW YOUR RESPONSIBILITIES It is important to know exactly how much and how often to take the opioid pain medications you are prescribed. Never take opioids in higher amounts or more often than prescribed. Do not combine opioids with alcohol or other drugs that cause drowsiness, such as benzodiazepines, also known as benzos, including diazepam and alprazolam, muscle relaxants or sleep aids. Never sell or share prescription opioids. This is illegal. Store opioids in a secure place and out of reach of others (including children, family, friends and visitors). The last page of this document has been signed and retained as a CHART COPY. Signatures Patient Education Materials Cardiac Ablation, Care After Atrial Fibrillation, [id number] Medication Leaflets My discharge plan and instructions have been reviewed and explained to me and I,MARCY ALEJANDRO understand my current condition and have read and understand these discharge instructions. I have received a written copy of the plan/instructions. If I have questions, I am aware that I should contact my doctor. Patient/[facility]ri[facility] Medicine Practitioner Signature: Date/Time: Relationship to Patient: Witness Name/Signature: Date/Time: [facility] 09-14-2022 Note Subjective 72-year-old male with atrial fibrillation who was admitted for A. fib ablation due to A. fib with RVR in the office. He underwent uncomplicated ablation yesterday but overnight went back into A. fib with RVR. Review of his telemetry shows likely atypical flutter and probable A. fib as well. Feels okay at this time but his symptoms previously had been predominantly with exertion which she has not done since being in the hospital. Objective Vitals and Measurements T: 36.9 C (Oral) TMIN: 36.43 C TMAX: 37.75 C HR: 136(Monitored) RR: 18 BP: 136/74 SpO2: 95% HT: 180.0 cm WT: 92.8 kg BMI: 28.64 Intake and Output 7AM Yesterday to 7AM Today Intake and Output (Last 24 hours) Intake Administration Information 1803.93 Output Urine Voided 500.00 Urinary Catheter Output: 400.00 Intra-Op EBL 30.00 Intra-Op Urine Catheter 1100.00 Total Summary Total Intake 1803.93 Total Output 2030.00 Fluid Balance -226.07 Physical Exam General: Alert and oriented, no apparent distress CV: Tachycardic rate with irregular rhythm, no murmurs or gallops, no jugular venous distention Pulm: Clear to auscultation bilaterally, no rales or wheezing Abd: Soft, nontender, nl bowel sounds Ext: No clubbing, cyanosis, or edema Weight Dosing Weight: 92.8 kg (09/13/22) Dosing Weight: 92.8 kg (09/13/22) Medications Medications (7) Active Scheduled: (5) apixaban 5 mg tablet 5 mg 1 tab(s), Oral, BID lisinopril 20 mg tablet 20 mg 1 tab(s), Oral, BID metoprolol tartrate 50 mg tablet 50 mg 1 tab(s), Oral, BIDM pantoprazole 20 mg EC tablet 20 mg 1 tab(s), Oral, qDayAC sotalol 120 mg Tablet 120 mg 1 tab(s), Oral, BID Continuous: (0) PRN: (2) acetaminophen 325 mg Tablet 650 mg 2 tab(s), Oral, q4h ketorolac 15 mg/mL vial 7.5 mg 0.5 mL, IV Push, q6h Lab Results 09/13 08:23 WBC: 5.5 Hgb: 14.5 Hct: 42.9 Platelet: 282 Neutrophil %: 61.8 Protime: 15.0 H PT International Ratio: 1.2 Glucose Level: 101 Sodium Level: 141 Potassium Level: 4.6 BUN: 30.0 H Creatinine Lvl (s): 1.43 H EKG Electrocardiogram - InProcess -- 09/14/22 6:00:00 EST, Complete by Nursing Assessment/Plan Atrial fibrillation Discussed with the patient's primary device test engineer. We will start him on sotalol for rhythm control and plan for cardioversion on Friday. I will also start him on metoprolol for rate control. I am transferring him to the fellow service for monitoring of his QT interval while initiating sotalol. Orders: amiodarone, Dose : 400 mg = 1 tab(s), Oral, BID, # 60 tab(s), 0 Refill(s), Pharmacy: [facility]/pharmacy #[id number], 180, cm, 09/13/22 18:32:00 EST, Height metoprolol, Dose : 25 mg = 1 tab(s), Oral, BID, # 90 tab(s), 0 Refill(s), Pharmacy: [facility]/pharmacy #[id number], 180, cm, 09/13/22 18:32:00 EST, Height metoprolol, Start: 09/14/22 17:00:00 EST, Dose = 50 mg, = 1 tab(s), Oral, BIDM, 09/14/22 11:33:00 EST sotalol, Start: 09/14/22 11:43:00 EST, Dose = 120 mg, = 1 tab(s), Oral, BID, 0, 09/14/22 11:43:00 EST Digitally Signed by JAZ GONCALVES MD on 09/14/2022 12:19 PM [facility] 09-13-2022 Anesthesiology Consult note Patient: MARCY ALEJANDRO Age: 72 years Sex: Male : 1950 Associated Diagnoses: None Author: NERIS TURNER MD Preoperative Information Time of last food or liquid consumption: 09/12/2022 23:00:00 Anesthesia history Patient's history: negative. History of Present Illness The patient presents for preanesthesia evaluation with a fib. Review of Systems Ear/Nose/Mouth/Throat: Negative. Respiratory: Shortness of breath. Cardiovascular: a fib, denies CAD or chest pain. Gastrointestinal: Negative. Genitourinary: Negative. Endocrine: Negative. Musculoskeletal: Negative. Integumentary: Negative. Neurologic: Negative. Health Status Allergies: Allergic Reactions (Selected) Severity Not Documented Ragweed- Unknown. Sulfa- Unknown., Allergies (2) ActiveReaction RagweedUnknown sulfaUnknown Current medications: (Selected) Prescriptions Prescribed flecainide 100 mg oral tablet: 100 mg, 1 tab(s), Oral, q12h, for 30 day(s), 60 tab(s), 0 Refill(s) Documented Medications Documented Eliquis 5 mg oral tablet: 5 mg, 1 tab(s), Oral, BID, 0 Refill(s) Vitamin D3 50 mcg (2000 intl units) oral capsule: 50 mcg, 1 cap(s), Oral, qDay, 60 cap(s), 0 Refill(s) lisinopril 20 mg oral tablet: 20 mg, 1 tab(s), Oral, BID, 0 Refill(s) omeprazole 20 mg oral delayed release tablet: 20 mg, 1 tab(s), Oral, qDay, 0 Refill(s), No qualifying data available Problem list: Medical Atrial fibrillation / SNOMED CT 94012792 / Confirmed Atrial flutter / SNOMED CT 0697008 / Confirmed Increased BMI / SNOMED CT 84861813 / Confirmed, Active Problems (3) Atrial fibrillation Atrial flutter Increased BMI Histories Past Medical History: No active or resolved past medical history items have been selected or recorded. Family History: Cancer Mother Brother Aortic valve replacement and aortoplasty Father () High blood pressure Mother CABG - Coronary artery bypass graft Father (): onset at 75 . Procedure history: Cardioversion ([id number]) on 08/20/2022 at 72 Years. Comments: 09/11/2022 13:42 Mala Tam LPN IMPRESSION: Successful direct current cardioversion with christian of sinus rhythm from atrial fibrillation with no immediate complication. Cardiovascular stress testing ([id number]) on 06/03/2022 at 71 Years. Comments: 08/07/2022 12:37 Re Larsen MA (ABR-OE) Normal exercise myocardial perfusion stress test at a high workload. Preserved EF. No a-fib during exercise. Echocardiogram ([id number]) on 11/21/2021 at 71 Years. Comments: 08/07/2022 12:38 Re Larsen MA (ABR-OE) Normal LV size EF 57%. MIld mitral valve insufficiency. Stage 2 diastolic dysfunction. Direct current cardioversion ([id number]) on 08/30/2020 at 70 Years. Comments: 08/07/2022 12:40 Re Larsen MA (ABR-OE) Successful DC cardioversion from a-flutter to sinus rhythm Thoracentesis ([id number]) in 2015 at 65 Years. Dilatation of esophageal stricture ([id number]). Tonsillectomy ([id number]). 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 Physical Examination Vital Signs(last 24 hrs) Last Charted Temp Oral36.6 DegC (SEP 13 08:29) Heart Rate [id number] bpm (SEP 13 12:35) Resp Rate 20 br/min (SEP 13 08:29) XRH687 mmHg (SEP 13 12:31) DBP89 mmHg (SEP 13 12:31) BMI28.64 (SEP 13 08:29) Measurements from flowsheet : Measurements 09/13/2022 8:29 EST Height 180.0 cm Height in inches 70.9 inch(es) Admission Weight 92.8 kg Weight Lbs 204.2 lb Weight Method Actual [place] Body Weight 74.99 kg Body Mass Index 28.64 kg/m2 Body Mass Index 28.64 kg/m2 Admission Body Mass Index 28.64 m2 09/12/2022 10:56 EST Height 180.3 cm Height in inches 71 inch(es) Admission Weight 93.8 kg Weight Lbs 206.4 lb Weight Method Actual [place] Body Weight 75.26 kg BSA Admission 2.14 Body Mass Index 28.85 kg/m2 General: Alert and oriented. Airway: Normal temporomandibular joint mobility. Mallampati classification: III (soft palate, base of uvula visible). Head: Normocephalic. Dentition Evaluation: Intact, Missing teeth, Denies loose/chipped teeth, very poor dentition. Neck: Supple. Respiratory: Lungs are clear to auscultation. Cardiovascular: Normal rate. Neurologic: Alert. Review / Management Results review: Labs (Last four charted values) WBC 5.5(SEP 13) Hgb 14.5(SEP 13) Hct 42.9(SEP 13) Plt 282(SEP 13) Na 141(SEP 13) K 4.6(SEP 13) CO2 26(SEP 13) Cl 107(SEP 13) Cr H 1.43(SEP 13) BUN H 30.0(SEP 13) Glucose 101(SEP 13) Ca 9.1(SEP 13) PT H 15.0(SEP 13) INR 1.2(SEP 13) , Lab results 09/13/2022 12:35 EST Temperature (Route Not Specified) 36.48 DegC DegC Heart Rate Monitored 130 bpm bpm Respiratory Rate - Anes 20 br/min br/min ABP 2 Systolic Anes 107 mmHg mmHg ABP 2 Systolic Anes 70 mm Hg mm Hg Oxygen Saturation 100 % % 09/13/2022 12:34 EST ABP 2 Systolic Anes 122 mmHg mmHg ABP 2 Systolic Anes 72 mm Hg mm Hg 09/13/2022 12:33 EST ABP 2 Systolic Anes 121 mmHg mmHg ABP 2 Systolic Anes 71 mm Hg mm Hg 09/13/2022 12:32 EST ABP 2 Systolic Anes 118 mmHg mmHg ABP 2 Systolic Anes 72 mm Hg mm Hg 09/13/2022 12:31 EST Systolic Blood Pressure Non-Invasive 118 mmHg mmHg Diastolic Blood Pressure Non-Invasive 89 mmHg mmHg ABP 2 Systolic Anes 118 mmHg mmHg ABP 2 Systolic Anes 70 mm Hg mm Hg 09/13/2022 12:30 EST Temperature (Route Not Specified) 36.46 DegC DegC Heart Rate Monitored 122 bpm bpm Respiratory Rate - Anes 4 br/min br/min ABP 2 Systolic Anes 101 mmHg mmHg ABP 2 Systolic Anes 59 mm Hg mm Hg Oxygen Saturation 99 % % phenylephrine 100 mcg mcg Set Rate Anes 14 br/min br/min 09/13/2022 12:29 EST Systolic Blood Pressure Non-Invasive 110 mmHg mmHg Diastolic Blood Pressure Non-Invasive 68 mmHg mmHg ABP 2 Systolic Anes 54 mmHg mmHg ABP 2 Systolic Anes 40 mm Hg mm Hg 09/13/2022 12:28 EST ABP 2 Systolic Anes 51 mmHg mmHg ABP 2 Systolic Anes 46 mm Hg mm Hg 09/13/2022 12:27 EST ABP 2 Systolic Anes 114 mmHg mmHg ABP 2 Systolic Anes 77 mm Hg mm Hg 09/13/2022 12:26 EST ABP 2 Systolic Anes 111 mmHg mmHg ABP 2 Systolic Anes 74 mm Hg mm Hg 09/13/2022 12:25 EST Temperature (Route Not Specified) 36.43 DegC DegC Heart Rate Monitored 138 bpm bpm Respiratory Rate - Anes 14 br/min br/min ABP 2 Systolic Anes 106 mmHg mmHg ABP 2 Systolic Anes 68 mm Hg mm Hg Oxygen Saturation 100 % % rocuronium 20 mg mg Set Rate Anes 14 br/min br/min 09/13/2022 12:24 EST ABP 2 Systolic Anes 114 mmHg mmHg ABP 2 Systolic Anes 70 mm Hg mm Hg 09/13/2022 12:23 EST ABP 2 Systolic Anes 107 mmHg mmHg ABP 2 Systolic Anes 71 mm Hg mm Hg 09/13/2022 12:22 EST ABP 2 Systolic Anes 114 mmHg mmHg ABP 2 Systolic Anes 73 mm Hg mm Hg 09/13/2022 12:21 EST ABP 2 Systolic Anes 113 mmHg mmHg ABP 2 Systolic Anes 78 mm Hg mm Hg 09/13/2022 12:20 EST Temperature (Route Not Specified) 36.43 DegC DegC Heart Rate Monitored 125 bpm bpm Respiratory Rate - Anes 8 br/min br/min ABP 2 Systolic Anes 112 mmHg mmHg ABP 2 Systolic Anes 72 mm Hg mm Hg Oxygen Saturation 100 % % Set Rate Anes 14 br/min br/min 09/13/2022 12:19 EST ABP 2 Systolic Anes 121 mmHg mmHg ABP 2 Systolic Anes 80 mm Hg mm Hg 09/13/2022 12:18 EST ABP 2 Systolic Anes 125 mmHg mmHg ABP 2 Systolic Anes 76 mm Hg mm Hg 09/13/2022 12:17 EST ABP 2 Systolic Anes 117 mmHg mmHg ABP 2 Systolic Anes 76 mm Hg mm Hg 09/13/2022 12:16 EST ABP 2 Systolic Anes 114 mmHg mmHg ABP 2 Systolic Anes 72 mm Hg mm Hg 09/13/2022 12:15 EST Temperature (Route Not Specified) 36.4 DegC DegC Heart Rate Monitored 136 bpm bpm Respiratory Rate - Anes 14 br/min br/min ABP 2 Systolic Anes 112 mmHg mmHg ABP 2 Systolic Anes 69 mm Hg mm Hg Oxygen Saturation 100 % % Set Rate Anes 14 br/min br/min 09/13/2022 12:14 EST ABP 2 Systolic Anes 111 mmHg mmHg ABP 2 Systolic Anes 70 mm Hg mm Hg 09/13/2022 12:13 EST ABP 2 Systolic Anes 118 mmHg mmHg ABP 2 Systolic Anes 73 mm Hg mm Hg 09/13/2022 12:12 EST ABP 2 Systolic Anes 117 mmHg mmHg ABP 2 Systolic Anes 76 mm Hg mm Hg 09/13/2022 12:11 EST ABP 2 Systolic Anes 124 mmHg mmHg ABP 2 Systolic Anes 75 mm Hg mm Hg 09/13/2022 12:10 EST Temperature (Route Not Specified) 36.34 DegC DegC Heart Rate Monitored 136 bpm bpm Respiratory Rate - Anes 14 br/min br/min ABP 2 Systolic Anes 113 mmHg mmHg ABP 2 Systolic Anes 74 mm Hg mm Hg Oxygen Saturation 100 % % Set Rate Anes 14 br/min br/min 09/13/2022 12:09 EST ABP 2 Systolic Anes 112 mmHg mmHg ABP 2 Systolic Anes 69 mm Hg mm Hg 09/13/2022 12:08 EST ABP 2 Systolic Anes 112 mmHg mmHg ABP 2 Systolic Anes 71 mm Hg mm Hg 09/13/2022 12:07 EST ABP 2 Systolic Anes 104 mmHg mmHg ABP 2 Systolic Anes 65 mm Hg mm Hg 09/13/2022 12:06 EST ABP 2 Systolic Anes 104 mmHg mmHg ABP 2 Systolic Anes 70 mm Hg mm Hg 09/13/2022 12:05 EST Temperature (Route Not Specified) 36.29 DegC DegC Heart Rate Monitored 136 bpm bpm Respiratory Rate - Anes 14 br/min br/min ABP 2 Systolic Anes 105 mmHg mmHg ABP 2 Systolic Anes 64 mm Hg mm Hg Oxygen Saturation 100 % % Set Rate Anes 14 br/min br/min 09/13/2022 12:04 EST ABP 2 Systolic Anes 111 mmHg mmHg ABP 2 Systolic Anes 69 mm Hg mm Hg 09/13/2022 12:03 EST ABP 2 Systolic Anes 115 mmHg mmHg ABP 2 Systolic Anes 73 mm Hg mm Hg 09/13/2022 12:02 EST ABP 2 Systolic Anes 117 mmHg mmHg ABP 2 Systolic Anes 73 mm Hg mm Hg 09/13/2022 12:01 EST ABP 2 Systolic Anes 67 mmHg mmHg ABP 2 Systolic Anes -4 mm Hg mm Hg 09/13/2022 12:00 EST Temperature (Route Not Specified) 36.26 DegC DegC Heart Rate Monitored 123 bpm bpm Respiratory Rate - Anes 14 br/min br/min ABP 2 Systolic Anes 112 mmHg mmHg ABP 2 Systolic Anes 71 mm Hg mm Hg Oxygen Saturation 100 % % Set Rate Anes 14 br/min br/min 09/13/2022 11:59 EST ABP 2 Systolic Anes 116 mmHg mmHg ABP 2 Systolic Anes 71 mm Hg mm Hg 09/13/2022 11:58 EST ABP 2 Systolic Anes 114 mmHg mmHg ABP 2 Systolic Anes 68 mm Hg mm Hg 09/13/2022 11:57 EST ABP 2 Systolic Anes 114 mmHg mmHg ABP 2 Systolic Anes 72 mm Hg mm Hg 09/13/2022 11:56 EST ABP 2 Systolic Anes 121 mmHg mmHg ABP 2 Systolic Anes 74 mm Hg mm Hg 09/13/2022 11:55 EST Temperature (Route Not Specified) 36.14 DegC DegC Heart Rate Monitored 121 bpm bpm Respiratory Rate - Anes 14 br/min br/min ABP 2 Systolic Anes 123 mmHg mmHg ABP 2 Systolic Anes 75 mm Hg mm Hg Oxygen Saturation 100 % % Set Rate Anes 14 br/min br/min 09/13/2022 11:54 EST ABP 2 Systolic Anes 121 mmHg mmHg ABP 2 Systolic Anes 71 mm Hg mm Hg 09/13/2022 11:53 EST ABP 2 Systolic Anes 119 mmHg mmHg ABP 2 Systolic Anes 71 mm Hg mm Hg 09/13/2022 11:52 EST ABP 2 Systolic Anes 111 mmHg mmHg ABP 2 Systolic Anes 65 mm Hg mm Hg 09/13/2022 11:51 EST ABP 2 Systolic Anes 117 mmHg mmHg ABP 2 Systolic Anes 71 mm Hg mm Hg heparin 3,000 unit(s) unit(s) 09/13/2022 11:50 EST Temperature (Route Not Specified) 36.11 DegC DegC Heart Rate Monitored 128 bpm bpm Respiratory Rate - Anes 14 br/min br/min ABP 2 Systolic Anes 119 mmHg mmHg ABP 2 Systolic Anes 69 mm Hg mm Hg Oxygen Saturation 100 % % Set Rate Anes 14 br/min br/min 09/13/2022 11:49 EST ABP 2 Systolic Anes 110 mmHg mmHg ABP 2 Systolic Anes 67 mm Hg mm Hg 09/13/2022 11:48 EST ABP 2 Systolic Anes 120 mmHg mmHg ABP 2 Systolic Anes 72 mm Hg mm Hg 09/13/2022 11:47 EST ABP 2 Systolic Anes 114 mmHg mmHg ABP 2 Systolic Anes 69 mm Hg mm Hg 09/13/2022 11:46 EST ABP 2 Systolic Anes 122 mmHg mmHg ABP 2 Systolic Anes 58 mm Hg mm Hg ePHEDrine 5 mg mg 09/13/2022 11:45 EST Temperature (Route Not Specified) 36.12 DegC DegC Heart Rate Monitored 116 bpm bpm Respiratory Rate - Anes 14 br/min br/min ABP 2 Systolic Anes 93 mmHg mmHg ABP 2 Systolic Anes 57 mm Hg mm Hg Oxygen Saturation 100 % % phenylephrine 100 mcg mcg Set Rate Anes 14 br/min br/min 09/13/2022 11:44 EST ABP 2 Systolic Anes 99 mmHg mmHg ABP 2 Systolic Anes 60 mm Hg mm Hg 09/13/2022 11:43 EST ABP 2 Systolic Anes 104 mmHg mmHg ABP 2 Systolic Anes 63 mm Hg mm Hg 09/13/2022 11:42 EST ABP 2 Systolic Anes 112 mmHg mmHg ABP 2 Systolic Anes 68 mm Hg mm Hg 09/13/2022 11:41 EST Bed Status CCU [id number] A Ready 09/13/2022 11:41 EST ABP 2 Systolic Anes 109 mmHg mmHg ABP 2 Systolic Anes 68 mm Hg mm Hg 09/13/2022 11:40 EST Temperature (Route Not Specified) 36.11 DegC DegC Heart Rate Monitored 115 bpm bpm Respiratory Rate - Anes 14 br/min br/min ABP 2 Systolic Anes 114 mmHg mmHg ABP 2 Systolic Anes 70 mm Hg mm Hg Oxygen Saturation 100 % % Set Rate Anes 14 br/min br/min 09/13/2022 11:39 EST ABP 2 Systolic Anes 113 mmHg mmHg ABP 2 Systolic Anes 72 mm Hg mm Hg 09/13/2022 11:38 EST ABP 2 Systolic Anes 120 mmHg mmHg ABP 2 Systolic Anes 73 mm Hg mm Hg 09/13/2022 11:37 EST ABP 2 Systolic Anes 129 mmHg mmHg ABP 2 Systolic Anes 76 mm Hg mm Hg 09/13/2022 11:36 EST ABP 2 Systolic Anes 142 mmHg mmHg ABP 2 Systolic Anes 86 mm Hg mm Hg fentaNYL 50 mcg mcg propofol 50 mg mg 09/13/2022 11:35 EST Temperature (Route Not Specified) 35.89 DegC DegC Heart Rate Monitored 128 bpm bpm Respiratory Rate - Anes 14 br/min br/min ABP 2 Systolic Anes 151 mmHg mmHg ABP 2 Systolic Anes 92 mm Hg mm Hg Oxygen Saturation 100 % % Set Rate Anes 14 br/min br/min 09/13/2022 11:34 EST ABP 2 Systolic Anes 147 mmHg mmHg ABP 2 Systolic Anes 90 mm Hg mm Hg 09/13/2022 11:33 EST ABP 2 Systolic Anes 120 mmHg mmHg ABP 2 Systolic Anes 72 mm Hg mm Hg 09/13/2022 11:32 EST ABP 2 Systolic Anes 116 mmHg mmHg ABP 2 Systolic Anes 67 mm Hg mm Hg 09/13/2022 11:31 EST ABP 2 Systolic Anes 117 mmHg mmHg ABP 2 Systolic Anes 69 mm Hg mm Hg 09/13/2022 11:30 EST Temperature (Route Not Specified) 36.17 DegC DegC Heart Rate Monitored 114 bpm bpm Respiratory Rate - Anes 14 br/min br/min ABP 2 Systolic Anes 119 mmHg mmHg ABP 2 Systolic Anes 70 mm Hg mm Hg Oxygen Saturation 100 % % Set Rate Anes 14 br/min br/min 09/13/2022 11:29 EST ABP 2 Systolic Anes 123 mmHg mmHg ABP 2 Systolic Anes 72 mm Hg mm Hg 09/13/2022 11:28 EST ABP 2 Systolic Anes 129 mmHg mmHg ABP 2 Systolic Anes 76 mm Hg mm Hg 09/13/2022 11:27 EST ABP 2 Systolic Anes 97 mmHg mmHg ABP 2 Systolic Anes 58 mm Hg mm Hg 09/13/2022 11:26 EST ABP 2 Systolic Anes 97 mmHg mmHg ABP 2 Systolic Anes 57 mm Hg mm Hg 09/13/2022 11:25 EST Temperature (Route Not Specified) 36.2 DegC DegC Heart Rate Monitored 95 bpm bpm Respiratory Rate - Anes 13 br/min br/min ABP 2 Systolic Anes 120 mmHg mmHg ABP 2 Systolic Anes 70 mm Hg mm Hg Oxygen Saturation 100 % % Set Rate Anes 13 br/min br/min 09/13/2022 11:24 EST ABP 2 Systolic Anes 118 mmHg mmHg ABP 2 Systolic Anes 71 mm Hg mm Hg 09/13/2022 11:23 EST ABP 2 Systolic Anes 79 mmHg mmHg ABP 2 Systolic Anes 48 mm Hg mm Hg phenylephrine 100 mcg mcg 09/13/2022 11:22 EST ABP 2 Systolic Anes 305 mmHg mmHg ABP 2 Systolic Anes -21 mm Hg mm Hg ePHEDrine 5 mg mg 09/13/2022 11:21 EST ABP 2 Systolic Anes 102 mmHg mmHg ABP 2 Systolic Anes 64 mm Hg mm Hg 09/13/2022 11:20 EST Temperature (Route Not Specified) 36.24 DegC DegC Heart Rate Monitored 97 bpm bpm Respiratory Rate - Anes 13 br/min br/min ABP 2 Systolic Anes 117 mmHg mmHg ABP 2 Systolic Anes 70 mm Hg mm Hg Oxygen Saturation 100 % % Set Rate Anes 13 br/min br/min 09/13/2022 11:19 EST ABP 2 Systolic Anes 121 mmHg mmHg ABP 2 Systolic Anes 71 mm Hg mm Hg 09/13/2022 11:18 EST ABP 2 Systolic Anes 133 mmHg mmHg ABP 2 Systolic Anes 77 mm Hg mm Hg 09/13/2022 11:17 EST ABP 2 Systolic Anes 124 mmHg mmHg ABP 2 Systolic Anes 75 mm Hg mm Hg 09/13/2022 11:16 EST ABP 2 Systolic Anes 104 mmHg mmHg ABP 2 Systolic Anes 62 mm Hg mm Hg heparin 3,000 unit(s) unit(s) 09/13/2022 11:15 EST Temperature (Route Not Specified) 36.27 DegC DegC Heart Rate Monitored 109 bpm bpm Respiratory Rate - Anes 13 br/min br/min ABP 2 Systolic Anes 112 mmHg mmHg ABP 2 Systolic Anes 68 mm Hg mm Hg Oxygen Saturation 100 % % Set Rate Anes 13 br/min br/min 09/13/2022 11:14 EST ABP 2 Systolic Anes 114 mmHg mmHg ABP 2 Systolic Anes 66 mm Hg mm Hg ePHEDrine 5 mg mg phenylephrine 100 mcg mcg 09/13/2022 11:13 EST ABP 2 Systolic Anes 109 mmHg mmHg ABP 2 Systolic Anes 67 mm Hg mm Hg 09/13/2022 11:12 EST ABP 2 Systolic Anes 103 mmHg mmHg ABP 2 Systolic Anes 62 mm Hg mm Hg 09/13/2022 11:11 EST ABP 2 Systolic Anes 119 mmHg mmHg ABP 2 Systolic Anes 68 mm Hg mm Hg 09/13/2022 11:10 EST Temperature (Route Not Specified) 36.29 DegC DegC Heart Rate Monitored 99 bpm bpm Respiratory Rate - Anes 12 br/min br/min ABP 2 Systolic Anes 145 mmHg mmHg ABP 2 Systolic Anes 79 mm Hg mm Hg Oxygen Saturation 100 % % Set Rate Anes 12 br/min br/min 09/13/2022 11:09 EST ABP 2 Systolic Anes 171 mmHg mmHg ABP 2 Systolic Anes 96 mm Hg mm Hg 09/13/2022 11:08 EST ABP 2 Systolic Anes 158 mmHg mmHg ABP 2 Systolic Anes 96 mm Hg mm Hg 09/13/2022 11:07 EST ABP 2 Systolic Anes 118 mmHg mmHg ABP 2 Systolic Anes 69 mm Hg mm Hg heparin 3,000 unit(s) unit(s) 09/13/2022 11:06 EST ABP 2 Systolic Anes 100 mmHg mmHg ABP 2 Systolic Anes 61 mm Hg mm Hg 09/13/2022 11:05 EST Temperature (Route Not Specified) 36.31 DegC DegC Heart Rate Monitored 101 bpm bpm Respiratory Rate - Anes 12 br/min br/min ABP 2 Systolic Anes 99 mmHg mmHg ABP 2 Systolic Anes 59 mm Hg mm Hg Oxygen Saturation 100 % % ePHEDrine 5 mg mg Set Rate Anes 12 br/min br/min 09/13/2022 11:04 EST ABP 2 Systolic Anes 99 mmHg mmHg ABP 2 Systolic Anes 62 mm Hg mm Hg phenylephrine 100 mcg mcg 09/13/2022 11:03 EST ABP 2 Systolic Anes 102 mmHg mmHg ABP 2 Systolic Anes 63 mm Hg mm Hg 09/13/2022 11:02 EST ABP 2 Systolic Anes 118 mmHg mmHg ABP 2 Systolic Anes 68 mm Hg mm Hg 09/13/2022 11:01 EST ABP 2 Systolic Anes 149 mmHg mmHg ABP 2 Systolic Anes 85 mm Hg mm Hg 09/13/2022 11:00 EST Temperature (Route Not Specified) 36.34 DegC DegC Heart Rate Monitored 97 bpm bpm Respiratory Rate - Anes 12 br/min br/min ABP 2 Systolic Anes 147 mmHg mmHg ABP 2 Systolic Anes 91 mm Hg mm Hg Oxygen Saturation 99 % % Set Rate Anes 12 br/min br/min 09/13/2022 10:59 EST ABP 2 Systolic Anes 127 mmHg mmHg ABP 2 Systolic Anes 71 mm Hg mm Hg heparin 14,000 unit(s) unit(s) 09/13/2022 10:58 EST ABP 2 Systolic Anes 146 mmHg mmHg ABP 2 Systolic Anes 88 mm Hg mm Hg 09/13/2022 10:57 EST ABP 2 Systolic Anes 133 mmHg mmHg ABP 2 Systolic Anes 86 mm Hg mm Hg 09/13/2022 10:56 EST ABP 2 Systolic Anes 91 mmHg mmHg ABP 2 Systolic Anes 61 mm Hg mm Hg 09/13/2022 10:55 EST Temperature (Route Not Specified) 36.34 DegC DegC Heart Rate Monitored 99 bpm bpm Respiratory Rate - Anes 11 br/min br/min ABP 2 Systolic Anes 80 mmHg mmHg ABP 2 Systolic Anes 51 mm Hg mm Hg Oxygen Saturation 99 % % phenylephrine 200 mcg mcg Set Rate Anes 11 br/min br/min 09/13/2022 10:54 EST ABP 2 Systolic Anes 101 mmHg mmHg ABP 2 Systolic Anes 62 mm Hg mm Hg 09/13/2022 10:53 EST ABP 2 Systolic Anes 76 mmHg mmHg ABP 2 Systolic Anes 48 mm Hg mm Hg 09/13/2022 10:52 EST ABP 2 Systolic Anes 81 mmHg mmHg ABP 2 Systolic Anes 52 mm Hg mm Hg 09/13/2022 10:51 EST ABP 2 Systolic Anes 100 mmHg mmHg ABP 2 Systolic Anes 59 mm Hg mm Hg 09/13/2022 10:50 EST Temperature (Route Not Specified) 36.33 DegC DegC Heart Rate Monitored 93 bpm bpm Respiratory Rate - Anes 11 br/min br/min ABP 2 Systolic Anes 125 mmHg mmHg ABP 2 Systolic Anes 74 mm Hg mm Hg Oxygen Saturation 100 % % Set Rate Anes 11 br/min br/min 09/13/2022 10:49 EST ABP 2 Systolic Anes 137 mmHg mmHg ABP 2 Systolic Anes 87 mm Hg mm Hg 09/13/2022 10:48 EST ABP 2 Systolic Anes 93 mmHg mmHg ABP 2 Systolic Anes 60 mm Hg mm Hg 09/13/2022 10:47 EST ABP 2 Systolic Anes 81 mmHg mmHg ABP 2 Systolic Anes 51 mm Hg mm Hg 09/13/2022 10:46 EST ABP 2 Systolic Anes 104 mmHg mmHg ABP 2 Systolic Anes 60 mm Hg mm Hg 09/13/2022 10:45 EST Temperature (Route Not Specified) 36.32 DegC DegC Heart Rate Monitored 81 bpm bpm Respiratory Rate - Anes 11 br/min br/min ABP 2 Systolic Anes 136 mmHg mmHg ABP 2 Systolic Anes 78 mm Hg mm Hg Oxygen Saturation 100 % % Set Rate Anes 11 br/min br/min 09/13/2022 10:44 EST ABP 2 Systolic Anes 117 mmHg mmHg ABP 2 Systolic Anes 76 mm Hg mm Hg 09/13/2022 10:43 EST ABP 2 Systolic Anes 80 mmHg mmHg ABP 2 Systolic Anes 50 mm Hg mm Hg phenylephrine 200 mcg mcg 09/13/2022 10:42 EST ABP 2 Systolic Anes 98 mmHg mmHg ABP 2 Systolic Anes 56 mm Hg mm Hg 09/13/2022 10:41 EST ABP 2 Systolic Anes 110 mmHg mmHg ABP 2 Systolic Anes 67 mm Hg mm Hg 09/13/2022 10:40 EST Temperature (Route Not Specified) 36.34 DegC DegC Heart Rate Monitored 93 bpm bpm Respiratory Rate - Anes 11 br/min br/min ABP 2 Systolic Anes 95 mmHg mmHg ABP 2 Systolic Anes 55 mm Hg mm Hg Oxygen Saturation 99 % % phenylephrine 200 mcg mcg Set Rate Anes 11 br/min br/min 09/13/2022 10:39 EST ABP 2 Systolic Anes 113 mmHg mmHg ABP 2 Systolic Anes 62 mm Hg mm Hg 09/13/2022 10:38 EST ABP 2 Systolic Anes 116 mmHg mmHg ABP 2 Systolic Anes 69 mm Hg mm Hg 09/13/2022 10:37 EST ABP 2 Systolic Anes 84 mmHg mmHg ABP 2 Systolic Anes 50 mm Hg mm Hg 09/13/2022 10:36 EST ABP 2 Systolic Anes 102 mmHg mmHg ABP 2 Systolic Anes 59 mm Hg mm Hg 09/13/2022 10:35 EST Temperature (Route Not Specified) 36.4 DegC DegC Heart Rate Monitored 111 bpm bpm Respiratory Rate - Anes 11 br/min br/min ABP 2 Systolic Anes 110 mmHg mmHg ABP 2 Systolic Anes 65 mm Hg mm Hg Oxygen Saturation 99 % % phenylephrine 150 mcg mcg Set Rate Anes 11 br/min br/min 09/13/2022 10:34 EST ABP 2 Systolic Anes 79 mmHg mmHg ABP 2 Systolic Anes 49 mm Hg mm Hg 09/13/2022 10:33 EST ABP 2 Systolic Anes 84 mmHg mmHg ABP 2 Systolic Anes 50 mm Hg mm Hg 09/13/2022 10:32 EST ABP 2 Systolic Anes 86 mmHg mmHg ABP 2 Systolic Anes 47 mm Hg mm Hg 09/13/2022 10:31 EST ABP 2 Systolic Anes 103 mmHg mmHg ABP 2 Systolic Anes 60 mm Hg mm Hg 09/13/2022 10:30 EST Heart Rate Monitored 109 bpm bpm Respiratory Rate - Anes 12 br/min br/min ABP 2 Systolic Anes 104 mmHg mmHg ABP 2 Systolic Anes 59 mm Hg mm Hg Oxygen Saturation 99 % % phenylephrine 150 mcg mcg Set Rate Anes 12 br/min br/min 09/13/2022 10:29 EST ABP 2 Systolic Anes 96 mmHg mmHg ABP 2 Systolic Anes 59 mm Hg mm Hg 09/13/2022 10:28 EST Systolic Blood Pressure Non-Invasive 106 mmHg mmHg Diastolic Blood Pressure Non-Invasive 56 mmHg mmHg ABP 2 Systolic Anes 98 mmHg mmHg ABP 2 Systolic Anes 58 mm Hg mm Hg phenylephrine 150 mcg mcg 09/13/2022 10:27 EST ABP 2 Systolic Anes 74 mmHg mmHg ABP 2 Systolic Anes 42 mm Hg mm Hg 09/13/2022 10:26 EST ABP 2 Systolic Anes 95 mmHg mmHg ABP 2 Systolic Anes 47 mm Hg mm Hg 09/13/2022 10:25 EST Heart Rate Monitored 110 bpm bpm Respiratory Rate - Anes 12 br/min br/min ABP 2 Systolic Anes 66 mmHg mmHg ABP 2 Systolic Anes -15 mm Hg mm Hg Oxygen Saturation 99 % % phenylephrine 200 mcg mcg Set Rate Anes 12 br/min br/min 09/13/2022 10:24 EST Systolic Blood Pressure Non-Invasive 139 mmHg mmHg Diastolic Blood Pressure Non-Invasive 78 mmHg mmHg 09/13/2022 10:20 EST Heart Rate Monitored 123 bpm bpm Respiratory Rate - Anes 14 br/min br/min Oxygen Saturation 100 % % 09/13/2022 10:17 EST fentaNYL 50 mcg mcg propofol 150 mg mg rocuronium 50 mg mg 09/13/2022 10:16 EST Systolic Blood Pressure Non-Invasive 145 mmHg mmHg Diastolic Blood Pressure Non-Invasive 78 mmHg mmHg midazolam 2 mg mg 09/13/2022 10:15 EST Heart Rate Monitored 93 bpm bpm Respiratory Rate - Anes 18 br/min br/min (Modified) 09/13/2022 10:10 EST SN - CTm - Anesthesia Start Time Anesthesia Start 09/13/2022 10:00 EST Ablation RF-Ensite - CV Arrived (In Progress) 09/13/2022 8:40 EST SN - Preop - CTm - Pt in HL SD Room 09/13/2022 7:50 SN - Preop - CTm - HL Pt Ready for Procedure 09/13/2022 8:40 09/13/2022 8:29 EST Designated Person #1 We May Share PANKAJ Alejandro [phone] cell phone Designated Person #1 Relationship Spouse Privacy Restrictions Requested None Height 180.0 cm Height in inches 70.9 inch(es) Admission Weight 92.8 kg Weight Lbs 204.2 lb Weight Method Actual [place] Body Weight 74.99 kg Body Mass Index 28.64 kg/m2 Body Mass Index 28.64 kg/m2 Admission Body Mass Index 28.64 m2 Temperature Oral 36.6 DegC Peripheral Pulse Rate 98 bpm Respiratory Rate 20 br/min Systolic BP Left Arm 124 mmHg Diastolic BP Left Arm 69 mmHg Systolic Blood Pressure Non-Invasive 124 mmHg Diastolic Blood Pressure Non-Invasive 69 mmHg Primary Pain Intensity 0 Pain Scale Type 0-10 Pain scale Heart Sounds ICU [id number] Heart Rhythm Regular Murmur Auscultated No Dorsalis Pedis Pulse, Left 2+ Normal Dorsalis Pedis Pulse, Right 2+ Normal Posttibial Pulse, Left 2+ Normal Posttibial Pulse, Right 2+ Normal Brachial Pulse Left 2+ Normal Brachial Pulse Right 2+ Normal Ulnar Pulse Left 2+ Normal Ulnar Pulse Right 2+ Normal Radial Pulse, Left 2+ Normal Radial Pulse, Right 2+ Normal Respirations Unlabored Respiratory Pattern Regular Breath Sounds Auscultated Anterior and posterior All Lobes Breath Sounds Clear Cough and Deep Breathe Done Cough None Oxygen Therapy Room air Oxygen Saturation 97 % Abdomen Description Non-distended, Soft, Flat Passing Flatus Yes Bowel Sounds All Quadrants Present Urinary Elimination Voiding, no difficulties Status N/A Skin Symptoms Ulcers/Lesions Skin Temperature Warm Skin Description [place], Dry Mucous Membrane Color [place] Skin Moisture General Dry IV Present Present Antecubital Left 09/13/2022 20 gauge Peripheral IV Activity: Insert new site Peripheral IV Dressing Condition: Clean, Dry, Intact Peripheral IV Dressing Activity: Applied, Transparent dressing Peripheral IV Line Status/Patency: Flushes easily, Good blood return Peripheral IV Site Condition: No complications Peripheral IV Equipment: Manual, Extension set, PRN Adaptor Peripheral IV Number of Attempts: 1 Neurological Symptoms Patient denies Extremity Movement Equal Characteristics of Speech Clear Level of Consciousness Alert JAMEY Yes Pupil Size, Left 3 mm Pupil Size, Right 3 mm Strength All Extremities Strong Sensation All Extremities Intact Affect/Behavior Appropriate, Calm, Cooperative Orientation Oriented x 4 Sensory Deficits None Sleep Apnea Snore No Sleep Apnea Tired No Sleep Apnea Obstruction No Sleep Apnea Pressure Yes Sleep Apnea BMI No Sleep Apnea Age Yes Sleep Apnea Neck No Sleep Apnea Gender Yes Sleep Apnea Score 3 High Risk for Sleep Apnea No Diagnosed With Sleep Apnea No Advanced Directives Yes Advance Directive Type [place] Durable Power of Inside Sales Coordinator for [facility] [employer], [place] Declaration (Living Will) Advance Directive Location Patient instructed to bring in copy Infectious Disease Symptoms Patient states no symptoms Infectious Disease Recent Exposure No Alcohol and Drug Use No Employee of Institutional Living No Health Care Employee No History of Exposure to TB No History of Positive Chest X-Ray for TB No History of Positive TB Skin Test No Homeless No Known Immunosuppression No Recent Immigrant No Resident of Institutional Living No Bloody Sputum No Fatigue No Fever No Loss of Appetite No Night Sweats No Persistent Cough > 3 Weeks No Weight Loss No Allergies Yes Consent Form Signed Yes Patient Dressed In Hospital gown, No undergarments Pre-op Preparation Glasses removed, Jewelry removed, Undergarments removed History & Physical On Chart Yes Obstructive Sleep Apnea Assess Completed No Orientation Assessment Oriented x 4 Safety Brochure Information Reviewed Yes [facility] [place] Video Viewed No Individuals Taught Patient, Spouse Learning Readiness Willing to learn Barriers to Learning None evident Teaching Method Electronic Teaching Evaluation Verbalizes/Nonverbally indicates understanding Preferred Written Language Bulgarian Preferred Spoken Language Bulgarian Pre Procedure/Surgery Education Appropriate expectations, Date/Time of procedure/surgery, 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, Other: poss obv admit Post op Activity Education Bedrest Procedure/Surgery Testing Education Lab tests Information Given by Patient Patient's Current Physicians Patient's Current Physicians Discharge To, Anticipated Home independently Activity Status ADL Awake, Resting Assistive Device None NPO Status Maintained Standard Safety ID band on, Allergy Band on, Call device within reach, Bed in low position, Wheels locked, Upper/Half-Length side-rails up, Phone within reach, Visitor at bedside, Safety level maintained, Non-Slip footwear, Precautions maintained Demonstrates Correct Call Light Use Yes Prev Test Positive/Diagnosis w/COVID-19 Yes Previous COVID-19 Positive Date Current Quarantine/Isolated any Illness No Any Contact with Sick Animals/Birds No Traveled Anywhere in Last 30 Days No Allergy Band on and Verified Yes Patient ID Band on and Verified Yes Last Fluid Intake 09/12/2022 23:30 Last Food Intake 09/12/2022 23:30 Last Void 09/13/2022 8:38 Lost Weight Unintentionally Recently No Eat Poorly Due to Decreased Appetite No Total MST Score 0 N/A Personal Devices, Patient Valuables Glasses Anesthesia/Transfusions Prior anesthesia Admission Note-Nursing Same Day Patient History 09/13/2022 8:23 EST WBC 5.5 10^3/mcL RBC 4.50 10^6/mcL Hgb 14.5 G/dL Hct 42.9 % MCV 95.4 fL MCH 32.2 pg MCHC 33.8 G/dL RDW 14.4 % Platelet 282 10^3/mcL MPV 8.0 fL Neutrophil % 61.8 % Lymphocyte % 24.7 % Monocyte % 10.9 % Eosinophil % 2.2 % Basophil % 0.4 % Neutrophil, Absolute 3.4 10^3/mcL Lymphocyte, Absolute 1.4 10^3/mcL Monocyte, Absolute 0.6 10^3/mcL Eosinophil, Absolute 0.1 10^3/mcL Basophil, Absolute 0.0 10^3/mcL Protime 15.0 seconds HI PT International Ratio 1.2 ratio NA Glucose Level 101 mg/dL Sodium Level 141 mEq/L Potassium Level 4.6 mEq/L Chloride 107 mEq/L CO2 26 mEq/L Electrolyte Balance 8.0 mEq/L BUN 30.0 mg/dL HI Creatinine Lvl (s) 1.43 mg/dL HI BUN/Creatinine Ratio 21.0 ratio Calcium Lvl 9.1 mg/dL GFR Non- 48 ml/min/1.73sqm NA GFR 59 ml/min/1.73sqm NA Creatinine Clearance Calc 48.07 mL/min 09/12/2022 11:59 EST Message Pre Certification Worksheet-STAT (Modified) 09/12/2022 11:49 EST Cardiology Office Note Office Visit Note (Modified) History of Present Illness Documentation History of Present Illness Documentation Impression and Plan Documentation Impression and Plan Documentation Review of Systems Documentation Review of Systems Documentation Physical Examination Documentation Physical Examination Documentation 09/12/2022 10:56 EST Height 180.3 cm Height in inches 71 inch(es) Admission Weight 93.8 kg Weight Lbs 206.4 lb Weight Method Actual [place] Body Weight 75.26 kg BSA Admission 2.14 Body Mass Index 28.85 kg/m2 Apical Heart Rate 120 bpm HI Systolic Blood Pressure Non-Invasive 126 mmHg Diastolic Blood Pressure Non-Invasive 80 mmHg Blood Pressure Method Manual Blood Pressure Location Right arm Blood Pressure Cuff Size Large Advanced Directives No - refuses information Chief Complaint RLB refer for aflutter ablation. When out of rhythm, gets a little bit SOB. Comprehensive Intake-Specialty OfficeAMB Ambulatory Comprehensive Intake - Specialty Office Preferred Lab Other lab service Preferred [facility] 09/12/2022 0:00 EST EKG Report Scanned EKG Report Scanned . Assessment and Plan [place] [employer] Anesthesiologists (ASA) physical status classification: Class III. Anesthetic Preoperative Plan Premedication: intravenous. Anesthetic technique: General. Induction: intravenously. Maintenance airway: Oral endotracheal tube. Special Monitoring: Arterial line. Postoperative pain management: Per surgeon. Risks discussed: nausea, vomiting, headache, sore throat, serious complications. Informed consent: signed by patient. Digitally Signed by NERIS TURNER MD on 09/13/2022 12:43 PM [facility] 08-20-2022 Discharge summary Date of Service 08/20/22 Discharge Diagnosis Afib/flutter w/RVR Hospital Course 72yo M who came in for outpatient cardioversion. He did not miss any doses of Eliquis for months. His rates were uncontrolled. He underwent successful cardioversion. He has an appointment with EP in a few weeks. No medication changes made. Allergies Ragweed (Unknown) sulfa (Unknown) Procedures Cardioversion Consults No qualifying data available. Objective Vitals and Measurements T: 36.0 C (Oral) TMIN: 36.0 C (Oral) TMAX: 37.5 C (Oral) HR: 80(Apical) RR: 18 BP: 120/82 BP: 152/75(Left Arm) SpO2: 96% HT: 180.3 cm WT: 97.1 kg Weight Dosing Weight: 97.1 kg (08/20/22) Code Status No qualifying data available. Admission Date 08/20/22 Discharge Date 08/20/22 Medications Unchanged apixaban (Eliquis 5 mg oral tablet)1 tab(s) by mouth two (2) times a day. cholecalciferol (Vitamin D3 50 mcg (2000 intl units) oral capsule)1 cap by mouth once a day. flecainide (flecainide 100 mg oral tablet)1 tab(s) by mouth every 12 hours for 30 Days. Refills: 0. lisinopril (lisinopril 20 mg oral tablet)1 tab(s) by mouth two (2) times a day. omeprazole (omeprazole 20 mg oral delayed release tablet)1 tab(s) by mouth once a day. Follow Up Follow Up with JAVIER KNOX MD When 09/12/2022 10:30 AM EST Where: [address] [facility] [place] [address]- [phone] Follow Up Appointments No qualifying data available. Follow Up Labs/Studies Discharge Labs No Follow-up Labs Discharge Studies No Follow-up Studies Discharge Diet No qualifying data available. Discharge Activity No qualifying data available. Readmission Risk/Palliative Score No qualifying data available. Digitally Signed by SATISH BURNETTE MD on 08/20/2022 09:02 PM [facility] 08-20-2022 Hospital Discharg e instructions Patient Education 08/20/2022 09:51:22 Moderate Conscious Sedation, Adult, Care After Moderate Conscious Sedation, Adult, Care After These instructions provide you with information about caring for yourself after your procedure. Your health care provider may also give you more specific instructions. Your treatment has been planned according to current medical practices, but problems sometimes occur. Call your health care provider if you have any problems or questions after your procedure. What can I expect after the procedure? After your procedure, it is common: To feel sleepy for several hours. To feel clumsy and have poor balance for several hours. To have poor judgment for several hours. To vomit if you eat too soon. Follow these instructions at home: For at least 24 hours after the procedure: Do not: ?Participate in activities where you could fall or become injured. ?Drive. ?Use heavy machinery. ?Drink alcohol. ?Take sleeping pills or medicines that cause drowsiness. ?Make important decisions or sign legal documents. ?Take care of children on your own. Rest. Eating and drinking Follow the diet recommended by your health care provider. If you vomit: ?Drink water, juice, or soup when you can drink without vomiting. ?Make sure you have little or no nausea before eating solid foods. General instructions Have a responsible adult stay with you until you are awake and alert. Take [id number] and prescription medicines only as told by your health care provider. If you smoke, do not smoke without supervision. Keep all follow-up visits as told by your health care provider. This is important. Contact a health care provider if: You keep feeling nauseous or you keep vomiting. You feel light-headed. You develop a rash. You have a fever. Get help right away if: You have trouble breathing. This information is not intended to replace advice given to you by your health care provider. Make sure you discuss any questions you have with your health care provider. Document Released: 08/10/2014 Document Revised: 10/02/2018 Document Reviewed: 02/08/2017 Elsevier Patient Education 2020 I-Pulse. 08/20/2022 09:51:08 3- Cardioversion (08/2018) (CUSTOM) CARDIOVERSION Discharge instructions ACTIVITY/SAFETY Please refrain from the following activities for 24 hours: Do not drive a car or operate heavy equipment. Do not consume alcohol for 24 hours. Do not return to work for 24 hours. Postpone signing any important papers or making important decisions. COMFORT Call your primary doctor if you have any redness, tenderness, warmth, discharge or swelling at your IV site. Your chest or back may get red and/or develop a burning sensation. Apply fragrance-free Aloe Vera lotion. Take Tylenol as needed for pain. DIET When you return home, resume your regular diet unless otherwise directed. Some of the sedatives, anesthetic medications you received today may make you nauseated. If vomiting persists, call your doctor. Restart your usual medications unless otherwise instructed by your doctor. If you have any questions, please call your doctor at the number listed on your follow up instructions. Document Released: 10/20/2006 Document Revised: 10/06/2013 Document Reviewed: 10/21/2014 ExitCare Patient Information 2015 [employer]. This information is not intended to replace advice given to you by your health care provider. Make sure you discuss any questions you have with your health care provider. Follow Up Care 08/14/2022 09:59:25 With:JAVIER KNOX MD Address: [address] [place] [address]- [phone] When:09/12/2022 10:30:00 [facility] 08-20-2022 Summary of episod e note Discharge Instructions Thank you for allowing [facility] to assist you with your healthcare needs. The following is important discharge information regarding your hospital visit. Your Care Team EMILIE SERVIN MD What to do next Scheduled Follow-Up Appointments Appointment Type When Where Contact InformationCV PLANT ETIOLOGIST 09/12/2022 10:30 AM EST [facility] Follow Up Appointments Follow Up with JAVIER KNOX MD When 09/12/2022 10:30 AM EST Where: [address] [place] [address]- [phone] Allergies Ragweed (Unknown) sulfa (Unknown) Medications Please ask your primary doctor or pharmacist before taking any other medication not listed, including over the counter drugs, herbal medications, vitamins and or supplements as they may interact with your home medications. What How Much When Instructions Last Dose Unchanged apixaban (Eliquis 5 mg oral tablet) 1 tab(s) by mouth Two (2) times a day Unchanged cholecalciferol (Vitamin D3 50 mcg (2000 intl units) oral capsule) 1 cap by mouth Once a day Unchanged flecainide (flecainide 100 mg oral tablet) 1 tab(s) by mouth Every 12 hours Duration: 30 Days Unchanged lisinopril (lisinopril 20 mg oral tablet) 1 tab(s) by mouth Two (2) times a day Unchanged omeprazole (omeprazole 20 mg oral delayed release tablet) 1 tab(s) by mouth Once a day Please take this list to your next doctor s visit. Bring all medications you take, including over the counter medications, herbals and other supplements with you to your doctor s visit. Patients and families are reminded to discard old lists and to update any records with all medication providers or retail pharmacies. Education Materials Moderate Conscious Sedation, Adult, Care After These instructions provide you with information about caring for yourself after your procedure. Your health care provider may also give you more specific instructions. Your treatment has been planned according to current medical practices, but problems sometimes occur. Call your health care provider if you have any problems or questions after your procedure. What can I expect after the procedure? After your procedure, it is common: To feel sleepy for several hours. To feel clumsy and have poor balance for several hours. To have poor judgment for several hours. To vomit if you eat too soon. Follow these instructions at home: For at least 24 hours after the procedure: Do not: ? Participate in activities where you could fall or become injured. ? Drive. ? Use heavy machinery. ? Drink alcohol. ? Take sleeping pills or medicines that cause drowsiness. ? Make important decisions or sign legal documents. ? Take care of children on your own. Rest. Eating and drinking Follow the diet recommended by your health care provider. If you vomit: ? Drink water, juice, or soup when you can drink without vomiting. ? Make sure you have little or no nausea before eating solid foods. General instructions Have a responsible adult stay with you until you are awake and alert. Take [id number] and prescription medicines only as told by your health care provider. If you smoke, do not smoke without supervision. Keep all follow-up visits as told by your health care provider. This is important. Contact a health care provider if: You keep feeling nauseous or you keep vomiting. You feel light-headed. You develop a rash. You have a fever. Get help right away if: You have trouble breathing. This information is not intended to replace advice given to you by your health care provider. Make sure you discuss any questions you have with your health care provider. Document Released: 08/10/2014 Document Revised: 10/02/2018 Document Reviewed: 02/08/2017 [employer] Patient Education 2020 I-Pulse. CARDIOVERSION Discharge instructions ACTIVITY/SAFETY Please refrain from the following activities for 24 hours: Do not drive a car or operate heavy equipment. Do not consume alcohol for 24 hours. Do not return to work for 24 hours. Postpone signing any important papers or making important decisions. COMFORT Call your primary doctor if you have any redness, tenderness, warmth, discharge or swelling at your IV site. Your chest or back may get red and/or develop a burning sensation. Apply fragrance-free Aloe Vera lotion. Take Tylenol as needed for pain. DIET When you return home, resume your regular diet unless otherwise directed. Some of the sedatives, anesthetic medications you received today may make you nauseated. If vomiting persists, call your doctor. Restart your usual medications unless otherwise instructed by your doctor. If you have any questions, please call your doctor at the number listed on your follow up instructions. Document Released: 10/20/2006 Document Revised: 10/06/2013 Document Reviewed: 10/21/2014 ExitCare Patient Information 2015 [employer]. This information is not intended to replace advice given to you by your health care provider. Make sure you discuss any questions you have with your health care provider. Additional Information VACCINATE! IT SAVES LIVES! Members of the community who have not yet received the COVID-19 vaccine and would like to receive it can visit one of [facility] vaccine clinics. There are many vaccine clinic locations within the [facility]. For locations and available times, please visit [email or web address] It is important to note that some COVID mobile vaccine clinics are held outdoors and may be canceled in rainy or stormy conditions. To learn more about pediatric vaccinations (ages 5-11), we invite you to visit the [facility] webpage. [email or web address] [email or web address] To learn more about the [email or web address] vaccine, we invite you to visit the [facility] website for a list of frequently asked questions. [email or web address] requently_Asked-Questions.pdf [facility] Patient Portal Access Instructions: Stay connected with your healthcare team and access your personal medical information anytime with the [facility] Patient Portal.If you would like a full copy of your medical records, please contact the [facility] Medical Records Department, Friday through Friday between 8a.m. and 4:30p.m. Please follow the directions below to access the portal: 1.Access the email account you provided upon registration to the hospital.2.Look for an invitation email from [facility].3.Open the email and access the invitation link: Accept Invitation to [facility].Fill in the required michael to create your account. Sign into [email or web address] with your username and password that you created in the above steps to stay up to date. You can then view a summary of results, a summary of your visits, and the ability to download your summaries to your computer or send the information securely to a physician. Remember that your healthcare information is confidential, so carefully consider who you will allow to register on the [facility] Patient Portal for access to your information. You can also access the [facility] Patient Portal on the [employer] savana. Simply click on Health Records under Health Data and then click on the [employer] logo. HOW TO SAFELY DISPOSE OF PRESCRIPTION MEDICATIONS Please use one of the following methods to safely dispose of your unused medications. 1.Use a drug disposal kit: the drug disposal pouch allows you to safely discard your old and unused drugs. Ask your nurse to give you one when you are discharged.2.Visit a local take-back location: Many local pharmacies and police departments have programs that collect old and unwanted prescription drugs. Call your local pharmacy or go to http://Exercise the World.Polybiotics/7Z3Lr5q to find one close to you.3.Make use of household items: Use cat litter or old coffee grounds to dispose medications if other options are not available. Mix your drugs with these household products, seal them in an airtight container and throw it into the garbage. Call [facility]: [phone] to be sure your drugs can be disposed of in this way. Some medicines may require a different approach.4.Never flush your medications down the toilet. IF YOU HAVE BEEN PRESCRIBED AN OPIOID FOR PAIN If you have been prescribed an opioid (such as hydrocodone, oxycodone or morphine), it is critical to understand the possible side effects and risks of opioid pain medications. Even when taken as directed, opioids can have several side effects including: Tolerance, meaning you might need to take more of a medication for the same pain relief. Nausea, vomiting and/or constipation. Sleepiness, dizziness, dry mouth, confusion, depression or itching. Physical dependence, meaning you have withdrawal symptoms when a medication is stopped, can develop within a few days. KNOW YOUR RESPONSIBILITIES It is important to know exactly how much and how often to take the opioid pain medications you are prescribed. Never take opioids in higher amounts or more often than prescribed. Do not combine opioids with alcohol or other drugs that cause drowsiness, such as benzodiazepines, also known as benzos, including diazepam and alprazolam, muscle relaxants or sleep aids. Never sell or share prescription opioids. This is illegal. Store opioids in a secure place and out of reach of others (including children, family, friends and visitors). The last page of this document has been signed and retained as a CHART COPY. Signatures Patient Education Materials Moderate Conscious Sedation, Adult, Care After 3- Cardioversion (08/2018) (CUSTOM) Medication Leaflets My discharge plan and instructions have been reviewed and explained to me and IMICHAEL STEVEN understand my current condition and have read and understand these discharge instructions. I have received a written copy of the plan/instructions. If I have questions, I am aware that I should contact my doctor. 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 Sedation: Propofol (per MEDICAL PHYSICS PROFESSOR) REASON FOR PROCEDURE: Atrial fibrillation. PROCEDURE IN DETAIL: The procedure was explained to the patient with risks and benefits including risk of stroke. Patient has been on uninterrupted anticoagulation for months without any missed doses. The pads applied in the anterior and posterior approach. With synchronized biphasic waveform at 150 J, one shock was successful in restoring sinus rhythm. The patient had no immediate post-procedure complications. The rhythm was maintained and 12-lead EKG was requested. IMPRESSION: Successful direct current cardioversion with christian of sinus rhythm from atrial fibrillation with no immediate complication. Digitally Signed by SATISH BURNETTE MD on 08/20/2022 09:03 AM [facility] 08-20-2022 Anesthesiology Consult note Patient: MARCY ALEJANDRO Age: 72 years Sex: Male : 1950 Associated Diagnoses: None Author: MAYELIN JANSEN MD Preoperative Information Time of last food or liquid consumption: 08/19/2022 23:00:00 Anesthesia history Patient's history: negative. Family's history: negative. History of Present Illness 72 yr old M pt with aflutter on Eliquis present for DCCV. PMH: HTN, GERD. Review of Systems Ear/Nose/Mouth/Throat: Negative except as documented in history of present illness. Respiratory: Negative except as documented in history of present illness. Cardiovascular: Negative except as documented in history of present illness. Gastrointestinal: Negative except as documented in history of present illness. Genitourinary: Negative except as documented in history of present illness. Endocrine: Negative except as documented in history of present illness. Musculoskeletal: Negative except as documented in history of present illness. Integumentary: Negative except as documented in history of present illness. Neurologic: Negative except as documented in history of present illness. Health Status Allergies: Allergic Reactions (Selected) Severity Not Documented Ragweed- Unknown. Sulfa- Unknown., Allergies (2) ActiveReaction RagweedUnknown sulfaUnknown Current medications: (Selected) Prescriptions Prescribed flecainide 100 mg oral tablet: 100 mg, 1 tab(s), Oral, q12h, for 30 day(s), 60 tab(s), 0 Refill(s) Documented Medications Documented Eliquis 5 mg oral tablet: 5 mg, 1 tab(s), Oral, BID, 0 Refill(s) lisinopril 20 mg oral tablet: 20 mg, 1 tab(s), Oral, BID, 0 Refill(s) omeprazole 20 mg oral delayed release tablet: 20 mg, 1 tab(s), Oral, qDay, 0 Refill(s), No qualifying data available Problem list: Medical Atrial flutter / SNOMED CT 8772204 / Confirmed, Active Problems (1) Atrial flutter Histories Past Medical History: No active or resolved past medical history items have been selected or recorded. Family History: Cancer Mother Brother Aortic valve replacement and aortoplasty Father () High blood pressure Mother CABG - Coronary artery bypass graft Father (): onset at 75 . Procedure history: Cardiovascular stress testing ([id number]) on 06/03/2022 at 71 Years. Comments: 08/07/2022 12:37 Re Larsen MA (ABR-OE) Normal exercise myocardial perfusion stress test at a high workload. Preserved EF. No a-fib during exercise. Echocardiogram ([id number]) on 11/21/2021 at 71 Years. Comments: 08/07/2022 12:38 Re Larsen MA (ABR-OE) Normal LV size EF 57%. MIld mitral valve insufficiency. Stage 2 diastolic dysfunction. Direct current cardioversion ([id number]) on 08/30/2020 at 70 Years. Comments: 08/07/2022 12:40 Re Larsen MA (ABR-OE) Successful DC cardioversion from a-flutter to sinus rhythm Thoracentesis ([id number]) in 2015 at 65 Years. Dilatation of esophageal stricture ([id number]). Tonsillectomy ([id number]). Social History Social & Psychosocial Habits Alcohol 08/07/2022 Use: Current Frequency: 1-2 times per month Substance Abuse 08/14/2022 Use: Never Tobacco 08/07/2022 Tobacco Use: Never (less than 100 in l Home/Environment 08/20/2022 Domestic Concerns None Living situation: Home/Independent Nutrition/Health 08/14/2022 Caffeine intake amount: No caffeine intake Sexual 08/20/2022 Self described orientation: Straight or heterosexual . Physical Examination Vital Signs 08/20/2022 6:40 EDT Temperature Oral 37.5 DegC HI Apical Heart Rate 107 bpm HI Respiratory Rate 18 br/min Systolic BP Left Arm 150 mmHg HI Diastolic BP Left Arm 92 mmHg HI Vital Signs(last 24 hrs) Last Charted Temp OralH 37.5DegC (AUG 20 06:40) Resp Rate 18 br/min (AUG 20 06:40) BMI29.87 (AUG 20 06:40) Measurements from flowsheet : Measurements 08/20/2022 6:40 EDT Height 180.3 cm Admission Weight 97.1 kg Weight Method Actual [place] Body Weight 75.26 kg Body Mass Index 29.87 kg/m2 Body Mass Index 29.87 kg/m2 Pain assessment: Self-reports no pain. General: Alert and oriented, No acute distress. Airway: Normal temporomandibular joint mobility. Mallampati classification: II (soft palate, fauces, uvula visible). Head: Normocephalic, Atraumatic. Dentition Evaluation: Missing teeth. Neck: Supple, Non-tender. Respiratory: Lungs are clear to auscultation, Respirations are non-labored. Cardiovascular: Normal rate, Regular rhythm. Heart Sounds: Normal. Gastrointestinal: Soft, Non-tender. Musculoskeletal Normal range of motion. Normal strength. Integumentary: Intact, Warm, No pallor, No rash. Neurologic: Alert, Oriented, No focal deficits. Review / Management Results review: No qualifying data available , Lab results 08/20/2022 6:40 EDT Privacy Restrictions Requested None Height 180.3 cm Admission Weight 97.1 kg Weight Method Actual [place] Body Weight 75.26 kg Body Mass Index 29.87 kg/m2 Body Mass Index 29.87 kg/m2 Temperature Oral 37.5 DegC HI Apical Heart Rate 107 bpm HI Respiratory Rate 18 br/min Systolic BP Left Arm 150 mmHg HI Diastolic BP Left Arm 92 mmHg HI Oxygen Saturation 97 % Status N/A Sensory Deficits None Sleep Apnea Snore Yes Sleep Apnea Tired Yes Sleep Apnea Obstruction No Sleep Apnea Pressure No Sleep Apnea BMI No Sleep Apnea Age Yes Sleep Apnea Neck No Sleep Apnea Gender Yes Sleep Apnea Score 4 High Risk for Sleep Apnea No Diagnosed With Sleep Apnea No Advanced Directives No - refuses information Infectious Disease Symptoms Patient states no symptoms Infectious Disease Recent Exposure No Alcohol and Drug Use No Employee of Institutional Living No Health Care Employee No History of Exposure to TB No History of Positive Chest X-Ray for TB No History of Positive TB Skin Test No Homeless No Known Immunosuppression No Recent Immigrant No Resident of Institutional Living No Bloody Sputum No Fatigue No Fever No Loss of Appetite No Night Sweats No Persistent Cough > 3 Weeks No Weight Loss No Safety Brochure Information Reviewed Yes Leslie Mitzi Video Viewed Patient refused Barriers to Learning None evident Teaching Method Explanation Teaching Evaluation Verbalizes/Nonverbally indicates understanding Preferred Written Language Bulgarian Preferred Spoken Language Bulgarian Information Given by Patient Patient's Current Physicians Patient's Current Physicians Discharge To, Anticipated Home with family care Prev Test Positive/Diagnosis w/COVID-19 No Current Quarantine/Isolated any Illness No Any Contact with Sick Animals/Birds No Traveled Anywhere in Last 30 Days No Lost Weight Unintentionally Recently No Eat Poorly Due to Decreased Appetite No Total MST Score 0 N/A Personal Devices, Patient Valuables None Anesthesia/Transfusions Prior anesthesia Admission Note-Nursing Same Day Patient History . Assessment and Plan [place] [employer] Anesthesiologists (ASA) physical status classification: Class III. Anesthetic Preoperative Plan Premedication: intravenous. Anesthetic technique: General. Maintenance airway: Mask. Postoperative pain management: Per surgeon. Risks discussed: nausea, vomiting, sore throat, allergic reaction, serious complications. Informed consent: signed by patient. Digitally Signed by AMYELIN JANSEN MD on 08/20/2022 08:29 AM [facility] Evaluation + Plan note Future Appointments Appointment Date:09/12/2022 10:30:00 AM Scheduled Provider: Location:[facility] Appointment Type:CV PLANT ETIOLOGIST [facility] Evaluation + Plan note Future Appointments Appointment Date:12/05/2022 09:30:00 AM Scheduled Provider: Location:[facility] Appointment Type:CV PLANT ETIOLOGIST [facility] Evaluation + Plan note Future Appointments Appointment Date:10/04/2022 08:30:00 AM Scheduled Provider: Location:[facility] Appointment Type:CV OV Appointment Date:10/31/2022 01:45:00 PM Scheduled Provider: Location:[facility] Appointment Type:CV OV Appointment Date:12/05/2022 09:30:00 AM Scheduled Provider: Location:[facility] Appointment Type:CV PLANT ETIOLOGIST [facility] Evaluation + Plan note Future Appointments Appointment Date:10/04/2022 08:30:00 AM Scheduled Provider: Location:[facility] Appointment Type:CV OV Appointment Date:10/31/2022 01:45:00 PM Scheduled Provider: Location:[facility] Appointment Type:CV OV Appointment Date:12/05/2022 09:30:00 AM Scheduled Provider: Location:[facility] Appointment Type:CV PLANT ETIOLOGIST Diagnostic Tests PendingComplete Blood Count 09/20/22 [facility] Evaluation + Plan note Future Appointments Appointment Date:10/18/2022 10:00:00 AM Scheduled Provider: Location:[facility] Appointment Type:CV Procedure - AOH Echo Appointment Date:11/28/2022 11:30:00 AM Scheduled Provider: Location:[facility] Appointment Type:CV OV [facility] Evaluation + Plan note Future Appointments Appointment Date:10/23/2022 11:15:00 AM Scheduled Provider: Location:[facility] Appointment Type:EP Ablation RF-CARTO Appointment Date:01/13/2023 11:30:00 AM Scheduled Provider: Location:[facility] Appointment Type:CV OV [facility] Evaluation + Plan note Future Appointments Appointment Date:01/13/2023 11:30:00 AM Scheduled Provider: Location:[facility] Appointment Type:CV OV [facility] Hospital course Narrative No data available for this section [facility] Hospital Discharge instructions No data available for this section [facility] Summary Purpose Family History No Family History Records Found Advance Directives No Advanced Directives Records Found Additional Source Comments Care Team (unrecognized sect ion and content) Care Team Personnel Name: EMILIE SERVIN MD Member Role: Primary Care Physician Address: Address: [address] [place] [address] [place] [address]- Care Team Related Persons Name: JAYNE ALEJANDRO Address: Home [address] [place] [address] [place] Care Team Personnel Name: EMILIE SERVIN MD Member Role: Primary Care Physician Address: Address: [facility], [facility] [place] [address]- Care Team Related Persons Name: JAYNE ALEJANDRO Address: Home [address] [place], [place] [phone] [place] Care Team Personnel Name: EMILIE SERVIN MD Member Role: Primary Care Physician Address: Address: [address] [place] [address] [place] [address]- Care Team Related Persons Name: JAYNE ALEJANDRO Address: Home [address] [place], [place] [phone] [place] Care Team Personnel Name: EMILIE SERVIN MD Member Role: Primary Care Physician Address: Address: [facility], [facility] [place] [address]- Care Team Related Persons Name: JAYNE ALEJANDRO Address: Home [address] [place], [place] [id number] [place] Care Team Personnel Name: EMILIE SERVIN MD Member Role: Primary Care Physician Address: Address: [address] [place] [address] [place] [address]- Care Team Related Persons Name: JAYNE ALEJANDRO Address: Home [address] [place], [place] [phone] [place] Care Team Personnel Name: EMILIE SERVIN MD Member Role: Primary Care Physician Address: Address: [facility], [facility] [place] [address]- Care Team Related Persons Name: ALEJANDRO JAYNE Huerta Address: Home [address] [place], [place] [phone] [place] Care Team Personnel Name: EMILIE SERVIN MD Member Role: Primary Care Physician Address: Address: [address] [place] [address] [place] [address]- Care Team Related Persons Name: JAYNE ALEJANDRO Address: Home [address] [place], [place] [id number] (unrecognized sect ion and content) No Status Records Found INFORMATION SOURCE (unrecogn ized section and content) FOR RECORDS PERTAINING TO PATIENTS WHO ARE OR HAVE BEEN ENROLLED IN A CHEMICAL DEPENDENCY/SUBSTANCEABUSE PROGRAM, SOME INFORMATION MAY BE OMITTED. This clinical summary was aggregated from multiple sources. Caution should be exercised in using it in the provision of clinical care. This summary normalizes information from multiple sources, and as a consequence, information in this document may materially change the coding, format and clinical context of patient data. In addition, data may be omitted in some cases. CLINICAL DECISIONS SHOULD BE BASED ON THE PRIMARY CLINICAL RECORDS. [facility]. provides no warranty or guarantee of the accuracy or completeness of information in this document.
[2023-11-14 12:29] LABS: Anion Gap 5 (5-15); BUN 17 mg/dL (7-18); Calcium,Total 8.9 mg/dL (8.5-10.1); Chloride 110 mmol/L (98-107); Creatinine, Serum 1.13 mg/dL (0.70-1.30); EST Glomerular Filtration Rate 67 mL/min (>60); Est Glom Filt Rate - Afr Amer 81 mL/min (>60); Glucose 115 mg/dL (74-106); Magnesium 2.4 mg/dL (1.6-2.6); Potassium 4.2 mmol/L (3.5-5.1); Sodium Level 143 mmol/L (136-145)
== END | disposition home or self-care (01) ==
LOC: BIMLAB 08:25
PROVIDERS: PCP Internal Medicine; Referring Provider Internal Medicine; Visit Provider Internal Medicine
DX: I10 Essential (primary) hypertension (principal)
CPT/HCPCS: 36415; 80048; 83735

== ENCOUNTER → 2024-05-14 | Outpatient (CLI) | payer MEDICARE, OTHER, SELFPAY ==
[2024-05-14 12:26] LABS: Absolute Lymphocyte Count 0.89 X10^3/uL (0.83-4.51); Absolute Neutrophil Count 3.2 X10^3/uL (2.0-7.7); Basophil# 0.03 X10^3/uL; Basophil% 0.6 % (0-1); Eosinophils% 4.2 % (0-5); Hematocrit 44.8 % (40-54); Hemoglobin 14.9 g/dL (13.0-16.5); Lymphocyte # 0.89 X10^3/ul (0.83-4.51); Lymphocyte % 18.7 % (19-41); Mean Corp Hgb Conc 33.3 g/dL (32-36); Mean Corpuscular Hgb 31.4 pg (27.0-32.0); Mean Corpuscular Volume 94.3 fL (80-94); Monocyte# 0.37 X10^3/uL; Monocyte% 7.8 % (0-10); NRBC Flagged by Analyzer 0 % (0-5); Neutrophil # 3.23 X10^3/uL (2.7-7.7); Neutrophil % 68.1 % (47-70); Platelet Count 218 K/mm3 (150-450); RBC Distribution Width CV 13.5 % (11.6-14.6); RBC Distribution Width SD 47.4 fl (35.1-43.9); Red Blood Count 4.75 M/mm3 (4.6-6.2); White Blood Count 4.8 K/mm3 (4.4-11.0)
[2024-05-14 13:33] LABS: AST(SGOT) 20 U/L (15-37); Alanine Aminotransfer ALT/SGPT 27 U/L (16-61); Albumin, Serum 3.4 g/dL (3.2-5.0); Alkaline Phosphatase 52 U/L (45-117); Anion Gap 7 (5-15); BUN 17 mg/dL (7-18); BUN/Creat Ratio 14.2 RATIO (10-20); Calcium,Total 8.9 mg/dL (8.5-10.1); Chloride 107 mmol/L (98-107); Cholesterol 164 mg/dL (200); EST Glomerular Filtration Rate 63 mL/min (>60); Est Glom Filt Rate - Afr Amer 76 mL/min (>60); Globulin 3.4 g/dL (2.2-4.2); Glucose 117 mg/dL (74-106); High Density Lipoprotein 37 mg/dL; Potassium 3.9 mmol/L (3.5-5.1); Protein, Total 6.8 g/dL (6.4-8.2); Sodium Level 139 mmol/L (136-145); Triglycerides 118 mg/dL; Very Low Density Lipoprotein 24 mg/dL (5-40)
[2024-05-15 00:47] LABS: Hemoglobin A1c 5.7 % (3.8-5.6)
== END | disposition home or self-care (01) ==
LOC: BIMLAB 08:22
PROVIDERS: PCP Internal Medicine; Referring Provider Internal Medicine; Visit Provider Internal Medicine
DX: I10 Essential (primary) hypertension (principal); R73.9 Hyperglycemia, unspecified
CPT/HCPCS: 36415; 80053; 80061; 83036; 85025

== ENCOUNTER → 2024-11-12 | Outpatient (CLI) | payer MEDICARE, OTHER, SELFPAY ==
[2024-11-12 12:30] LABS: ALB/GLOB Ratio 0.9 RATIO (0.9-2.4); AST(SGOT) 22 U/L (15-37); Alanine Aminotransfer ALT/SGPT 31 U/L (16-61); Albumin, Serum 3.6 g/dL (3.2-5.0); Alkaline Phosphatase 54 U/L (45-117); Anion Gap 5 (5-15); BUN 18 mg/dL (7-18); Calcium,Total 8.8 mg/dL (8.5-10.1); Chloride 108 mmol/L (98-107); EST Glomerular Filtration Rate 63 mL/min (>60); Est Glom Filt Rate - Afr Amer 76 mL/min (>60); Glucose 128 mg/dL (74-106); PSA,Total - Annual Screen 0.71 ng/mL (0.00-4.00); Potassium 4.3 mmol/L (3.5-5.1); Protein, Total 7.6 g/dL (6.4-8.2); Sodium Level 138 mmol/L (136-145)
[2024-11-12 14:26] LABS: Hemoglobin A1c 5.9 % (3.8-5.6)
== END | disposition home or self-care (01) ==
LOC: BIMLAB 08:29
PROVIDERS: PCP Internal Medicine; Referring Provider Internal Medicine; Visit Provider Internal Medicine
DX: R73.03 Prediabetes (principal); Z12.5 Encounter for screening for malignant neoplasm of prostate; I10 Essential (primary) hypertension
CPT/HCPCS: 36415; 80053; 83036; 84153; G0103

== ENCOUNTER → 2025-05-11 | Outpatient (CLI) | payer MEDICARE, OTHER, SELFPAY ==
[2025-05-11 12:48] LABS: Hematocrit 41.8 % (40-54); Hemoglobin 14.1 g/dL (13.0-16.5); Immature Granulocytes Count 0.010 X10^3/uL (0.0-0.0); Mean Corp Hgb Conc 33.7 g/dL (32-36); Mean Corpuscular Volume 94.4 fL (80-94); Mean Platelet Vol. 10.4 fl (6.2-12.0); NRBC Flagged by Analyzer 0 % (0-5); Platelet Count 203 K/mm3 (150-450); RBC Distribution Width CV 13.7 % (11.6-14.6); RBC Distribution Width SD 47.7 fl (35.1-43.9); Red Blood Count 4.43 M/mm3 (4.6-6.2); White Blood Count 4.7 K/mm3 (4.4-11.0)
[2025-05-11 13:31] LABS: AST(SGOT) 20 U/L (<=37); Alanine Aminotransfer ALT/SGPT 23 U/L (<=46); Albumin, Serum 3.9 g/dL (3.4-4.8); Alkaline Phosphatase 54 U/L (40-129); Anion Gap 11 (5-15); BUN 21 mg/dL (4-19); BUN/Creat Ratio 17.8 RATIO (10-20); Calcium,Total 8.8 mg/dL (7.6-11.0); Carbon Dioxide 22.3 mmol/L (21.0-32.0); Chloride 107 mmol/L (98-108); Cholesterol 159 mg/dL (<=200); Globulin 2.9 g/dL (2.2-4.2); Glucose 172 mg/dL (70-99); Low Density Lipoprotein Calc. 95 mg/dL; Potassium 3.8 mmol/L (3.3-5.1); Triglycerides 139 mg/dL; Very Low Density Lipoprotein 28 mg/dL (5-40); cholesterol:hdl ratio screen 4.42
== END | disposition home or self-care (01) ==
LOC: BIMLAB 08:40
PROVIDERS: PCP Internal Medicine; Referring Provider Internal Medicine; Visit Provider Internal Medicine
DX: I10 Essential (primary) hypertension (principal)
CPT/HCPCS: 36415; 80053; 80061; 85025